=== PATIENT | female | born 1970 | race American Indian/Alaskan Native ===

== ENCOUNTER 2017-12-21 16:46 | Emergency (ER) | payer MEDICAID ==
[2017-12-21 16:59] VITALS: BP 156/92
--- NOTE | 2017-12-21 18:52 | Emergency Department Report ---
Blank Doc - Documentation Documentation: Patient is a 48-year-old Female who is presenting with right back pain. Patient states that 4 months ago she had a kidney stone and was treated [facility] with a nephrostomy tube. Patient states that she was told by her urologist and urologist nurse that several weeks after the insertion is thick and pull it out themselves. Patient states she tried to do this and she met resistance and has had increased pain since. Patient states that she is upset with this urologist and has not gone back. She states that she now is having foul smelling and appearing urine and she also is having multiple episodes of syncope. Patient states she has also abdominal right flank pain as well.
[2017-12-21 19:23] LABS: BUN/Creatinine Ratio 13; Blood Urea Nitrogen 8 mg/dL (7-17); Calcium 10.7 mg/dL (8.4-10.2); Hemolysis Index 0
[2017-12-21 19:24] LABS: Basophils % (Auto) 0.2 % (0.0-1.8); Eosinophils # (Auto) 0.1 K/mm3 (0.0-0.4); Eosinophils % (Auto) 1.9 % (0.0-4.3); Hematocrit 32.3 % (30.3-42.9); Hemoglobin 10.1 gm/dl (10.1-14.3); Lymphocytes # (Auto) 1.3 K/mm3 (1.2-5.4); Mean Corpuscular HGB Conc 31 % (30-34); Mean Corpuscular Volume 79 fl (79-97); Monocytes # (Auto) 0.2 K/mm3 (0.0-0.8); Monocytes % (Auto) 4.6 % (0.0-7.3); Platelet Count 303 K/mm3 (140-440)
[2017-12-21 19:25] LABS: Mean Corpuscular Hemoglobin 25 pg (28-32); Red Cell Distribution Width 20.3 % (13.2-15.2)
[2017-12-21 19:36] LABS: Bacteria,Urine 2+ /HPF (Negative); Bilirubin,Urine NEG (Negative); Blood,Urine LG (Negative); Color,Urine Yellow (Yellow); Mucus,Urine FEW /HPF; Urobilinogen,Urine < 2.0 mg/dL (<2.0)
[2017-12-21 19:39] LABS: RBC,Urine > 182.0 /HPF (0.0-6.0); WBC,Urine > 182.0 /HPF (0.0-6.0)
[2017-12-21] MEDS ORDERED: LEVAQUIN PO ONE (19:53)
--- NOTE | 2017-12-21 20:14 | Emergency Department Report ---
ED General Adult HPI - General Chief complaint: Back Pain/Injury Stated complaint: ABD/BACK PAIN Time Seen by Provider: 12/21/17 18:25 Source: patient Mode of arrival: Ambulatory Limitations: No Limitations - History of Present Illness Initial comments: This is a 48-year-old female nontoxic, well nourished in appearance, no acute signs of distress presents to the ED with c/o of right-sided flank pain. Patient stated that in August a nephrostomy tube is in place by a urologist and was particularly removed September but due to insurance lapsed she did not follow-up with caterpillar tractor operator. Patient stated that her caterpillar tractor operator instructed to remove that herself several weeks ago patient attempted and then developed pain. Patient stated every since then she her pain has increased. Patient is also complaining of foul-smelling urine, dysuria and hematuria. She has had episodes of near syncope x2 weeks with last one being 2 days ago. Patient denies any head trauma or LOC. Patient denies any headache, stiff neck, fever, chills, nausea, vomiting, headache, stiff neck. Patient denies any chest pain or shortness of breath. Patient denies any allergies. Past medical history includes renal colic, hydronephrosis. MD Complaint: UTI, Near syncope, Pain Location: back Radiation: non-radiation Severity scale (0 -10): 8 Quality: aching Consistency: intermittent Improves with: none Worsens with: none Associated Symptoms: denies other symptoms. denies: confusion, chest pain, diaphoresis, fever/chills, headaches, loss of appetite, malaise, nausea/vomiting , rash, seizure, shortness of breath, syncope, weakness Treatments Prior to Arrival: none - Related Data Previous Rx's Medication Instructions Recorded Last Taken Type Levofloxacin [Levaquin TAB] 750 mg PO QDAY #7 tablet 12/21/17 Unknown Rx Allergies Allergy/AdvReac Type Severity Reaction Status Date / Time No Known Allergies Allergy Verified 12/21/17 16:53 ED Review of Systems ROS: Stated complaint: ABD/BACK PAIN Other details as noted in HPI Constitutional: denies: chills, fever Eyes: denies: eye pain, eye discharge, vision change ENT: denies: ear pain, throat pain Respiratory: denies: cough, shortness of breath, wheezing Cardiovascular: denies: chest pain, palpitations Endocrine: no symptoms reported Gastrointestinal: denies: abdominal pain, nausea, diarrhea Genitourinary: urgency, dysuria, frequency, hematuria. denies: discharge Musculoskeletal: back pain. denies: joint swelling, arthralgia Skin: denies: rash, lesions Neurological: denies: headache, weakness, paresthesias Psychiatric: denies: anxiety, depression Hematological/Lymphatic: denies: easy bleeding, easy bruising ED Past Medical Hx - Past Medical History Hx Congestive Heart Failure: No Hx Diabetes: No Hx Renal Disease: Yes (Renal colic, questionable hydronephrosis) Hx Kidney Stones: Yes Hx Asthma: No Hx COPD: No Hx HIV: No - Surgical History Additional Surgical History: LASER surgery kidney stone - Social History Smoking Status: Never Smoker Substance Use Type: None - Medications Home Medications: Home Medications Medication Instructions Recorded Confirmed Last Taken Type Levofloxacin [Levaquin TAB] 750 mg PO QDAY #7 tablet 12/21/17 Unknown Rx ED Physical Exam - General Limitations: No Limitations General appearance: alert, in no apparent distress - Head Head exam: Present: atraumatic, normocephalic - Eye Eye exam: Present: normal appearance Pupils: Present: normal accommodation - ENT ENT exam: Present: normal exam, mucous membranes moist - Neck Neck exam: Present: normal inspection, full ROM. Absent: tenderness, meningismus - Respiratory Respiratory exam: Present: normal lung sounds bilaterally. Absent: respiratory distress, wheezes, rales, rhonchi, stridor - Cardiovascular Cardiovascular Exam: Present: regular rate, normal rhythm, normal heart sounds. Absent: bradycardia, tachycardia, irregular rhythm, systolic murmur, diastolic murmur, rubs, gallop - GI/Abdominal GI/Abdominal exam: Present: soft, normal bowel sounds. Absent: distended, tenderness, guarding, rebound, rigid, diminished bowel sounds - Rectal Rectal exam: Present: deferred - Extremities Exam Extremities exam: Present: normal inspection, full ROM, normal capillary refill. Absent: tenderness - Back Exam Back exam: Present: normal inspection, full ROM, other (Red tube to the right side flank area. No abscess or swelling noted. No pus or drainage. No cellutlitis. ). Absent: tenderness, CVA tenderness (R), CVA tenderness (L), muscle spasm, paraspinal tenderness, vertebral tenderness, rash noted - Neurological Exam Neurological exam: Present: alert, oriented X3, CN II-XII intact, normal gait - Expanded Neurological Exam Expanded Patient oriented to: Present: person, place, time Cranial nerves: Gag Reflex: Normal, Facial Sensation: Normal, Facial Palsy with Forehead Movement: Normal, Facial Palsy without Forehead Movement: Normal Cerebellar function: Finger to Nose: Normal Upper motor neuron: Pronator Drift: Normal, Sensory Extinction: Normal Sensory exam: Upper Extremity Light Touch: Normal, Upper Extremity Pin Prick: Normal, Upper Extremity Temperature: Normal, UE 2 Point Discrimination: Normal, Lower Extremity Light Touch: Normal, Lower Extremity Pin Prick: Normal, Lower Extremity Temperature: Normal, LE 2 Point Discrimination: Normal Motor strength exam: RUE: 5, LUE: 5, RLE: 5, LLE: 5 Best Eye Response (B[place]): (4) open spontaneously Best Motor Response (Fouzia): (6) obeys commands Best Verbal Response (Fouzia): (5) oriented Fouzia Total: 15 - Psychiatric Psychiatric exam: Present: normal affect, normal mood - Skin Skin exam: Present: warm, dry, intact, normal color. Absent: rash ED Course Vital Signs 12/21/17 16:54 Temperature 98.7 F Pulse Rate 80 Respiratory 16 Rate Blood Pressure 156/92 O2 Sat by Pulse 99 Oximetry - Reevaluation(s) Reevaluation #1: 12/21/17 20:16 Patient is speaking in full sentences with no signs of distress noted. - Consultations Consultation #1: 12/21/17 20:17 Patient has been consulted with Dr. Vivar about patient history, physical exam , and labs and examined and screened patient and agrees to ED plan of care and discharge plan of care. ED Medical Decision Making - Lab Data Result diagrams: 12/21/17 19:00 12/21/17 19:00 - Medical Decision Making this is a 47-year-old female that presents with nephrostomy tube evaluation, UTI and near-syncope. Patient is stable and was examined by me and Dr. Vivar. As per Dr. Vivar no CT needed. Patient is neurologically stable.labs obtained. Urine obtained which indicates elevated wbc's, leukocytes and RBCs. Patient received first dose of Levaquin and patient is discharged with Levaquin. Patient was referred to a caterpillar tractor operator and she stated that she does not want to go back to her old caterpillar tractor operator. At time of discharge, the patient does not seem toxic or ill in appearance. No acute signs of distress noted. Patient agrees to discharge treatment plan of care. No further questions noted by the patient. Critical care attestation.: If time is entered above; I have spent that time in minutes in the direct care of this critically ill patient, excluding procedure time. ED Disposition Clinical Impression: Flank pain UTI (urinary tract infection) Qualifiers: Urinary tract infection type: site unspecified Hematuria presence: with hematuria Qualified Code(s): N39.0 - Urinary tract infection, site not specified ; R31.9 - Hematuria, unspecified Disposition: DC- TO HOME OR SELFCARE Is pt being admited?: No Does the pt Need Aspirin: No Condition: Stable Instructions: Urinary Tract Infection in Women (ED), Nephrostomy Tube Care (ED) , Levofloxacin (By mouth) Additional Instructions: Follow-up with a primary care doctor in 3-5 days or if symptoms worsen and continue return to emergency room as soon as possible. Prescriptions: Levofloxacin [Levaquin TAB] 750 mg PO QDAY #7 tablet Referrals: PRIMARY MD CHRISSY [Primary Care Provider] - 3-5 Days HERBIE NG MD [Staff Physician] - 3-5 Days [facility] [Outside] - 3-5 Days [facility] [Outside] - 3-5 Days Forms: Work/School Release Form(ED)
== END 2017-12-21 20:32 | disposition home or self-care (01) ==
LOC: ED 16:46
DX: N39.0 Urinary tract infection, site not specified (principal); R10.30 Lower abdominal pain, unspecified
CPT/HCPCS: 36415; 80048; 81001; 85025

== ENCOUNTER 2018-06-23 02:52 | Inpatient (IN) | payer MEDICAID ==
[2018-06-23] MEDS ORDERED: ZOFRAN ODT PO ONE (03:10)
[2018-06-23] MEDS ORDERED: NACL 0.9% 1000 ML 1,000 ML IV ONE (03:10)
[2018-06-23] MEDS ORDERED: ZOFRAN ODT ONE (03:17)
[2018-06-23 03:44] LABS: Basophils % (Auto) 0.5 % (0.0-1.8); Eosinophils % (Auto) 1.1 % (0.0-4.3); Hemoglobin 9.9 gm/dl (10.1-14.3); Lymphocytes % (Auto) 11.8 % (13.4-35.0); Mean Corpuscular HGB Conc 31 % (30-34); Mean Corpuscular Hemoglobin 23 pg (28-32); Mean Corpuscular Volume 76 fl (79-97); Monocytes % (Auto) 7.5 % (0.0-7.3); Platelet Count 439 K/mm3 (140-440); Red Blood Count 4.23 M/mm3 (3.65-5.03); Red Cell Distribution Width 21.2 % (13.2-15.2)
[2018-06-23 03:45] LABS: Basophils # (Auto) 0.1 K/mm3 (0.0-0.1); Eosinophils # (Auto) 0.1 K/mm3 (0.0-0.4); Lymphocytes # (Auto) 1.3 K/mm3 (1.2-5.4); Monocytes # (Auto) 0.9 K/mm3 (0.0-0.8)
[2018-06-23 03:52] LABS: Alanine Aminotransferase 8 units/L (7-56); Albumin 3.8 g/dL (3.9-5); BUN/Creatinine Ratio 11; Blood Urea Nitrogen 12 mg/dL (7-17); Hemolysis Index 1
[2018-06-23 04:06] LABS: Bacteria,Urine 1+ /HPF (Negative); Bilirubin,Urine NEG (Negative); Blood,Urine SM (Negative); Color,Urine Yellow (Yellow); Mucus,Urine FEW /HPF; Protein,Urine <15 mg/dL mg/dL (Negative)
[2018-06-23 04:09] LABS: WBC,Urine > 182.0 /HPF (0.0-6.0)
[2018-06-23 04:24] LABS: Calcium 12.9 mg/dL (8.4-10.2)
[2018-06-23] MEDS ORDERED: CLEOCIN 300 MG/50 mL 300 MG/50 ML BAG IV ONE (06:24)
[2018-06-23] MEDS ORDERED: DILAUDID IV ONE (06:24)
--- NOTE | 2018-06-23 06:26 | Emergency Department Report ---
ED General Adult HPI - General Chief complaint: Abdominal Pain Stated complaint: ABDOMINAL PAIN Time Seen by Provider: 06/23/18 06:06 Source: patient, RN notes reviewed, old records reviewed Mode of arrival: Stretcher Limitations: No Limitations - History of Present Illness Initial comments: This is a 48-year-old female who is not known to this provider previously. Her past medical history includes recurrent nephrolithiasis, multiple stents in the past, recent admission to this hospital May 2018 for aforementioned, found to have culture positive urinary tract infection, and right-sided nephrostomy tube. Also has a history of hypercalcemia and bowel ileus. Patient was discharged on antibiotics, and had a surgical culture which grew staph epidermidis, sensitive to clindamycin, daptomycin, tetracycline, Bactrim, vancomycin. Patient was discharged with antibiotics, but reports not taking her antibiotics because she was worried about the side effects. She also has not followed up with urology as she was instructed to. She presents today with a complaint of diffuse abdominal pain for the past few days, nausea and vomiting. Denies fevers, denies chills, denies dysuria but endorses increased urinary frequency. Symptoms have been going on for a few days, they're constant, made worse with palpation percussion, they do not radiate anywhere, and a decrease with rest. Denies headache, neck pain, chest pain, shortness of breath, focal extremity weakness, numbness. Reports feeling very anxious. -: Gradual Location: back, abdomen Radiation: non-radiation Quality: other Consistency: other Improves with: other Worsens with: other Associated Symptoms: loss of appetite, malaise, nausea/vomiting, other - Related Data Previous Rx's Medication Instructions Recorded Last Taken Type Lactobacillus Combination No.4 1 each PO DAILY #30 capsule 05/11/18 Unknown Rx [Probiotic] levoFLOXacin [Levaquin] 750 mg PO QDAY #14 tablet 05/11/18 Unknown Rx traMADol [Ultram] 50 mg PO Q6HR PRN #10 tablet 05/11/18 Unknown Rx Allergies Allergy/AdvReac Type Severity Reaction Status Date / Time No Known Allergies Allergy Verified 12/21/17 16:53 ED Review of Systems ROS: Stated complaint: ABDOMINAL PAIN Other details as noted in HPI Comment: All other systems reviewed and negative ED Past Medical Hx - Past Medical History Previous Medical History?: Yes Hx Congestive Heart Failure: No Hx Diabetes: No Hx Renal Disease: Yes (Renal colic, questionable hydronephrosis) Hx Kidney Stones: Yes Hx Asthma: No Hx COPD: No Hx HIV: No - Surgical History Past Surgical History?: Yes Additional Surgical History: LASER surgery kidney stone. 1 renal stent placed - Social History Smoking Status: Never Smoker Substance Use Type: None - Medications Home Medications: Home Medications Medication Instructions Recorded Confirmed Last Taken Type Lactobacillus Combination No.4 1 each PO DAILY #30 capsule 05/11/18 Unknown Rx [Probiotic] levoFLOXacin [Levaquin] 750 mg PO QDAY #14 tablet 05/11/18 Unknown Rx traMADol [Ultram] 50 mg PO Q6HR PRN #10 tablet 05/11/18 Unknown Rx ED Physical Exam - General Limitations: No Limitations General appearance: alert, anxious, obese - Head Head exam: Present: atraumatic, normocephalic - Eye Eye exam: Present: normal appearance, EOMI. Absent: nystagmus - ENT ENT exam: Present: normal exam, normal orophraynx, mucous membranes moist, normal external ear exam - Neck Neck exam: Present: normal inspection, full ROM - Respiratory Respiratory exam: Present: normal lung sounds bilaterally. Absent: respiratory distress - Cardiovascular Cardiovascular Exam: Present: normal rhythm, tachycardia, normal heart sounds. Absent: systolic murmur, diastolic murmur, rubs, gallop - GI/Abdominal GI/Abdominal exam: Present: soft, tenderness, other (there is suprapubic tenderness). Absent: distended, guarding, rebound, rigid, pulsatile mass - Extremities Exam Extremities exam: Present: normal inspection, full ROM, normal capillary refill , other (2+ pulses noted in the bilateral upper, lower extremities. Compartments soft. No long bony tenderness. The pelvis is stable.). Absent: pedal edema, joint swelling, calf tenderness - Back Exam Back exam: Present: normal inspection, full ROM, other (on the right paralumbar region, there is an indwelling nephrostomy tube, with no collection bag noted. In addition, the sutures are not connected to the skin.). Absent: tenderness, CVA tenderness (R), paraspinal tenderness, vertebral tenderness - Neurological Exam Neurological exam: Present: alert, oriented X3, CN II-XII intact, other ( Extraocular movements intact. Tongue midline. No facial droop. Facial sensation intact to light touch in the V1, V2, V3 distribution bilaterally. 5 and 5 strength in 4 extremities.. Sensation is intact to light touch in 4 extremities.). Absent: motor sensory deficit - Psychiatric Psychiatric exam: Present: anxious - Skin Skin exam: Present: warm, dry, intact, normal color. Absent: rash ED Course Vital Signs 06/23/18 06/23/18 06/23/18 02:57 07:20 08:00 Temperature 98 F Pulse Rate 118 H Respiratory 20 Rate Blood Pressure 129/83 126/81 O2 Sat by Pulse 100 80 L 95 Oximetry 06/23/18 06/23/18 09:00 09:06 Temperature 99.3 F Pulse Rate 111 H Respiratory Rate Blood Pressure 129/79 O2 Sat by Pulse 99 Oximetry - Reevaluation(s) Reevaluation #1: 06/23/18 06:56 Differential diagnosis, including but not limited to: Hypercalcemia, urinary tract infection, infected kidney stone, nephrostomy tube malposition Assessment and plan: 48-year-old female with acute on chronic abdominal pain, displaced nephrostomy tube, probable urinary tract infection. She is afebrile, hemodynamically stable, and tachycardic. She will be given IV fluids for her hypercalcemia, pain medication and nausea medication, and she'll be loaded with clindamycin as per review of old urine cultures. Noncontrast CT scan of abdomen and pelvis is pending. I will discuss with urology extension service advisor. Recommended admission for hypercalcemia, presumed urinary tract infection. Reevaluation #2: 06/23/18 07:30 Case is discussed with urology on-call, Dr. Calvert, his group will see the patient in consultation. Discussed the case with Hospital physician, Dr. Breaux, who accepted the patient on behalf of Dr. Sterling Reevaluation #3: 06/23/18 08:[address] scan of the abdomen and pelvis demonstrates a right nephrostomy tube in the proper position, with moderate right hydronephrosis and hydroureter , and stones in the right kidney. There is an obstructing stone in the proximal right ureter measuring 11 mm. The left ureter and kidney are unremarkable. The appendix is normal. Visualized bowel contents unremarkable. ED Medical Decision Making - Lab Data Result diagrams: 06/23/18 03:12 06/23/18 03:12 Vital Signs 06/23/18 02:57 Temperature 98 F Pulse Rate 118 H Respiratory 20 Rate Blood Pressure 129/83 O2 Sat by Pulse 100 Oximetry Lab Results 06/23/18 06/23/18 06/23/18 Range/Units 03:12 03:12 Unknown WBC 11.4 H (4.5-11.0) K/mm3 RBC 4.23 (3.65-5.03) M/mm3 Hgb 9.9 L (10.1-14.3) gm/dl Hct 32.0 (30.3-42.9) % MCV 76 L (79-97) fl MCH 23 L (28-32) pg MCHC 31 (30-34) % RDW 21.2 H (13.2-15.2) % Plt Count 439 (140-440) K/mm3 Lymph % (Auto) 11.8 L (13.4-35.0) % [place] % (Auto) 7.5 H (0.0-7.3) % Eos % (Auto) 1.1 (0.0-4.3) % Baso % (Auto) 0.5 (0.0-1.8) % Lymph # 1.3 (1.2-5.4) K/mm3 [place] # 0.9 H (0.0-0.8) K/mm3 Eos # 0.1 (0.0-0.4) K/mm3 Baso # 0.1 (0.0-0.1) K/mm3 Seg Neutrophils % 79.1 H (40.0-70.0) % Seg Neutrophils # 9.0 H (1.8-7.7) K/mm3 Sodium 136 L (137-145) mmol/L Potassium 3.8 (3.6-5.0) mmol/L Chloride 102.7 (98-107) mmol/L Carbon Dioxide 24 (22-30) mmol/L Anion Gap 13 mmol/L BUN 12 (7-17) mg/dL Creatinine 1.1 (0.7-1.2) mg/dL Estimated GFR > 60 ml/min BUN/Creatinine Ratio 11 % Glucose 129 H (65-100) mg/dL Calcium 12.9 H* (8.4-10.2) mg/dL Total Bilirubin 0.20 (0.1-1.2) mg/dL AST 11 (5-40) units/L ALT 8 (7-56) units/L Alkaline Phosphatase 126 (35-129) units/L Total Protein 7.1 (6.3-8.2) g/dL Albumin 3.8 L (3.9-5) g/dL Albumin/Globulin Ratio 1.2 % Urine Color Yellow (Yellow) Urine Turbidity Slightly-cloudy (Clear) Urine pH 6.0 (5.0-7.0) Ur Specific [place] 1.013 (1.003-1.030) Urine Protein <15 mg/dl (Negative) mg/dL Urine Glucose (UA) Neg (Negative) mg/dL Urine Ketones Neg (Negative) mg/dL Urine Blood Sm (Negative) Urine Nitrite Neg (Negative) Urine Bilirubin Neg (Negative) Urine Urobilinogen 2.0 (<2.0) mg/dL Ur Leukocyte Esterase Lg (Negative) Urine WBC (Auto) > 182.0 H (0.0-6.0) /HPF Urine RBC (Auto) 8.0 (0.0-6.0) /HPF U Epithel Cells (Auto) < 1.0 (0-13.0) /HPF Urine Bacteria (Auto) 1+ (Negative) /HPF Urine Mucus Few /HPF - EKG Data -: EKG Interpreted by Me EKG shows normal: sinus rhythm Rate: tachycardia - EKG Data 06/23/18 07:16 Sinus tachycardia, 110 bpm, normal axis, high left ventricular voltage, normal intervals, Q waves noted in 1 and aVL, abnormal EKG, this EKG is not a STEMI - Radiology Data Radiology results: pending Critical care attestation.: If time is entered above; I have spent that time in minutes in the direct care of this critically ill patient, excluding procedure time. ED Disposition Clinical Impression: UTI (urinary tract infection), Hypercalcemia, Complication of nephrostomy Disposition: DC-09 OP ADMIT IP TO THIS HOSP Is pt being admited?: Yes Condition: Good
--- NOTE | 2018-06-23 07:25 | Cat Scan Report ---
FINAL REPORT PROCEDURE: CT ABDOMEN PELVIS WO CON TECHNIQUE: Computerized axial tomography of the abdomen and pelvis was performed without intravenous contrast. This study is performed without intravascular contrast material and its sensitivity for abdominal and pelvic pathology, including neoplasms, inflammation, abscess, free fluid, thrombosis, arterial dissection and infarction, is reduced compared with a contrast enhanced study. HISTORY: ABD PAIN COMPARISON: No prior studies are available for comparison. FINDINGS: Visualized lower thorax: There is an 8 millimeter noncalcified nodule at the right lung base. There is an 8 millimeter cavitating nodule at the right lung base. Both these lesions were seen previously and have not changed.. Liver: Normal size and attenuation. Spleen: Normal size and attenuation. Gallbladder and biliary system: Normal. Pancreas: Normal. Adrenals: Normal. Kidneys: There is a right nephrostomy tube in proper position. There is moderate right hydronephrosis and hydroureter. There are stones in the right kidney. There is an obstructing stone in the proximal right ureter measuring 11 millimeters. Left kidney and ureter are unremarkable.. GI tract: There is no bowel obstruction, colitis or enteritis. The appendix is normal.. Lymph nodes and mesentery: Normal. Vasculature: Normal. Bladder: Normal. Reproductive organs: Uterus and ovaries are unremarkable. Peritoneum: There is no ascites, free air, abscess or adenopathy.. Musculoskeletal structures: No significant abnormality. Other: None. IMPRESSION: There is a right nephrostomy tube in proper position. There is moderate right hydronephrosis and hydroureter. There are stones in the right kidney. There is an obstructing stone in the proximal right ureter measuring 11 millimeters. Left kidney and ureter are unremarkable.. There is no bowel obstruction, colitis or enteritis. The appendix is normal.. Uterus and ovaries are unremarkable. There is no ascites, free air, abscess or adenopathy.. .
[2018-06-23] MEDS ORDERED: APRESOLINE IV PRN (07:46)
[2018-06-23] MEDS ORDERED: REGLAN PO PRN (07:46)
--- NOTE | 2018-06-23 07:50 | History and Physical Report ---
History of Present Illness Date of examination: 06/23/18 Date of admission: 06/23/18 Chief complaint: abdominal pain for 2 days History of present illness: 48-year-old female with h/o obstructing kidney stone status post right sided nephrostomy tube placement in 05/23. The surgical culture that time grew staph epidermidis, sensitive to clindamycin, daptomycin, tetracycline, Bactrim, vancomycin. Patient was discharged on antibiotics following nephrostomy tube placement, but she reports not taking her antibiotics because she was worried about the side effects. She also has not followed up with urology as she was instructed to. The patient's nephrostomy bag broke a few days ago, and she broke off part of the nephrostomy bag in the tube, and instead of coming to the emergency room she decided to wait a few days until she began to have severe right flank pain at which point she presented to the hospital today. Her abdominal pain now diffuse, 10/0 in intensity and not getting any relief w/o iv morphin. She has been placed on iv abx, urology and vascular surgeon called. She is getting admitted for further evaluation and management. Past History Past Medical History: other (multiple ureteric stent with h/o kidney stone, hypercalcemia) Past Surgical History: Other (multiple ureteric stent ) Social history: full code. denies: smoking, alcohol abuse, prescription drug abuse, IV drug use Family history: denies: CAD, cancer, diabetes, hypertension, stroke Medications and Allergies Allergies Allergy/AdvReac Type Severity Reaction Status Date / Time No Known Allergies Allergy Verified 12/21/17 16:53 Home Medications Medication Instructions Recorded Confirmed Last Taken Type Lactobacillus Combination No.4 1 each PO DAILY #30 capsule 05/11/18 Unknown Rx [Probiotic] levoFLOXacin [Levaquin] 750 mg PO QDAY #14 tablet 05/11/18 Unknown Rx traMADol [Ultram] 50 mg PO Q6HR PRN #10 tablet 05/11/18 Unknown Rx Active Meds: Active Medications Acetaminophen (Tylenol) 650 mg PO Q4H PRN PRN Reason: Pain MILD(1-3)/Fever >100.5/WILSON Acetaminophen/Hydrocodone Bitart ([place] 5/325) 2 each PO Q6H PRN PRN Reason: Pain, Moderate (4-6) Hydralazine HCl (Apresoline) 5 mg IV Q30MIN PRN PRN Reason: Hypertension Ceftriaxone Sodium (Rocephin/Ns 1 Gm/50 Ml) 1 gm in 50 mls @ 100 mls/hr IV Q12HR SONIA; Protocol Sodium Chloride (Nacl 0.9% 1000 Ml) 1,000 mls @ 100 mls/hr IV DIRECT SONIA Metoclopramide HCl (Reglan) 10 mg PO Q6H PRN PRN Reason: Nausea And Vomiting Senna (Senokot) 8.6 mg PO Q12HR SONIA Review of Systems Constitutional: fever, anorexia, fatigue, no weight loss Ears, nose, mouth and throat: no ear discharge, no sinus pressure, no epistaxis , no bleeding gums Cardiovascular: no chest pain, no orthopnea, no palpitations Respiratory: no cough, no shortness of breath, no dyspnea on exertion Gastrointestinal: abdominal pain, nausea Genitourinary Female: pelvic pain, flank pain Rectal: no incontinence Musculoskeletal: no neck stiffness, no myalgias, no limitation of motion Integumentary: no rash, no pruritis Neurological: no paralysis, no weakness Psychiatric: anxiety Endocrine: no cold intolerance, no heat intolerance Hematologic/Lymphatic: no easy bruising Allergic/Immunologic: no urticaria Exam - Constitutional Vitals: Temp Pulse Resp BP Pulse Ox 98 F 118 H 20 129/83 100 06/23/18 02:57 06/23/18 02:57 06/23/18 02:57 06/23/18 02:57 06/23/18 02:57 General appearance: Present: no acute distress, obese - EENT Eyes: Present: PERRL ENT: hearing intact, clear oral mucosa - Neck Neck: Present: supple, normal ROM - Respiratory Respiratory effort: normal Respiratory: bilateral: CTA - Cardiovascular Heart Sounds: Present: S1 & S2. Absent: rub, click - Extremities Extremities: pulses symmetrical, No edema Peripheral Pulses: within normal limits - Abdominal General gastrointestinal: Present: soft, non-distended, normal bowel sounds Localized gastrointestinal: tender: diffuse - Integumentary Integumentary: Present: clear, warm, dry - Musculoskeletal Musculoskeletal: gait normal, strength equal bilaterally - Psychiatric Psychiatric: appropriate mood/affect, intact judgment & insight - Neurologic Neurologic: CNII-XII intact, moves all extremities Results - Labs CBC & Chem 7: 06/24/18 05:00 06/24/18 05:00 Labs: Abnormal lab results 06/23/18 06/23/18 06/23/18 Range/Units 03:12 03:12 Unknown WBC 11.4 H (4.5-11.0) K/mm3 Hgb 9.9 L (10.1-14.3) gm/dl MCV 76 L (79-97) fl MCH 23 L (28-32) pg RDW 21.2 H (13.2-15.2) % Lymph % (Auto) 11.8 L (13.4-35.0) % [place] % (Auto) 7.5 H (0.0-7.3) % [place] # 0.9 H (0.0-0.8) K/mm3 Seg Neutrophils % 79.1 H (40.0-70.0) % Seg Neutrophils # 9.0 H (1.8-7.7) K/mm3 Sodium 136 L (137-145) mmol/L Glucose 129 H (65-100) mg/dL Calcium 12.9 H* (8.4-10.2) mg/dL Albumin 3.8 L (3.9-5) g/dL Urine WBC (Auto) > 182.0 H (0.0-6.0) /HPF - Imaging and Cardiology CT scan - abdomen: report reviewed Assessment and Plan Sepsis with UTI Abdominal pain with obstructed nephrolithiasis Malfunctioning right nephrostomy tube Right hydronephrosis - aggressive iv fluid, pain Mx - cont iv abx - consulted urology, and IR - plan for surgical procedure today - floow blood cx , urine cx Hypercalcemia - - monitor BMP, check PTH, Vit D - cont iv fluid for now Obesity - dietary recommendation when stable - monitor BMP, check PTH, Vit D Radiological data: CT abdomen/pelvis: There is a right nephrostomy tube in proper position. There is moderate right hydronephrosis and hydroureter. There are stones in the right kidney. There is an obstructing stone in the proximal right ureter measuring 11 millimeters. Left kidney and ureter are unremarkable.. There is no bowel obstruction, colitis or enteritis. The appendix is normal.. Uterus and ovaries are unremarkable. There is no ascites, free air, abscess or adenopathy..
[2018-06-23] MEDS: NORCO 5/325 PO PRN ×2 (09:04→20:45)
[2018-06-23] MEDS ORDERED: NORCO 5/325 ONE (09:07)
[2018-06-23] MEDS: NACL 0.9% 1000 ML 1,000 ML IV SCH ×2 (09:42→14:30)
[2018-06-23] MEDS ORDERED: ROCEPHIN/NS 1 GM/50 ML 1 GM/50 ML BAG IV SCH (10:00)
[2018-06-23] MEDS: SENOKOT PO SCH ×2 (10:46→21:16)
[2018-06-23] MEDS: MORPHINE IV PRN (12:34)
[2018-06-23] MEDS ORDERED: HEPARIN/NS 5000 UNIT/500ML(CATH LAB) 500 ML IR ONE (13:40)
[2018-06-23] MEDS ORDERED: LEVAQUIN 500MG/100ML 500 MG/100 ML BAG IV ONE (13:42)
[2018-06-23] MEDS ORDERED: XYLOCAINE 2% INFILTRATI ONE (13:42)
[2018-06-23] MEDS ORDERED: NACL 0.9% 500 ML IR ONE (14:30)
[2018-06-23] MEDS: VERSED ONE (14:38)
[2018-06-23] MEDS: SUBLIMAZE ONE (14:38)
[2018-06-23] MEDS ORDERED: ZOSYN/NS 4.5GM/100ML 4.5 GM/100 ML VIAL IV ONE (14:48)
--- NOTE | 2018-06-23 14:59 | Consultation ---
History of Present Illness - Reason for Consult Consult date: 06/23/18 Blocked nephrostomy tube - History of Present Illness 48-year-old female who is status post right sided nephrostomy tube placement in 05/23 for ureteral calculi. Her past medical history includes recurrent nephrolithiasis, multiple stents in the past, and a history of hypercalcemia and bowel ileus. Patient was discharged on antibiotics, and had a surgical culture which grew staph epidermidis, sensitive to clindamycin, daptomycin, tetracycline, Bactrim, vancomycin. Patient was discharged with antibiotics, but reports not taking her antibiotics because she was worried about the side effects. She also has not followed up with urology as she was instructed to. The patient's nephrostomy bag broke a few days ago, and she broke off part of the nephrostomy bag in the tube, and instead of coming to the emergency room she decided to wait a few days until she began to have severe right flank pain at which point she presented to the hospital. Patient's alert and oriented 3 at this time. The patient also did not follow up with urology due to difficulty obtaining a ride. Past History Past Medical History: other (multiple ureteric stent with h/o kidney stone) Past Surgical History: Other (multiple ureteric stent ) Social history: full code. denies: smoking, alcohol abuse, prescription drug abuse, IV drug use Family history: denies: CAD, cancer, diabetes, hypertension, stroke Medications and Allergies Allergies Allergy/AdvReac Type Severity Reaction Status Date / Time No Known Allergies Allergy Verified 12/21/17 16:53 Home Medications Medication Instructions Recorded Confirmed Last Taken Type Lactobacillus Combination No.4 1 each PO DAILY #30 capsule 05/11/18 Unknown Rx [Probiotic] levoFLOXacin [Levaquin] 750 mg PO QDAY #14 tablet 05/11/18 Unknown Rx traMADol [Ultram] 50 mg PO Q6HR PRN #10 tablet 05/11/18 Unknown Rx Active Meds: Active Medications Acetaminophen (Tylenol) 650 mg PO Q4H PRN PRN Reason: Pain MILD(1-3)/Fever >100.5/WILSON Acetaminophen/Hydrocodone Bitart ([place] 5/325) 2 each PO Q6H PRN PRN Reason: Pain, Moderate (4-6) Last Admin: 06/23/18 09:04 Dose: 2 each Hydralazine HCl (Apresoline) 5 mg IV Q30MIN PRN PRN Reason: Hypertension Ceftriaxone Sodium (Rocephin/Ns 1 Gm/50 Ml) 1 gm in 50 mls @ 100 mls/hr IV Q12HR SONIA; Protocol Last Admin: 06/23/18 09:42 Dose: 100 mls/hr Sodium Chloride (Nacl 0.9% 1000 Ml) 1,000 mls @ 100 mls/hr IV DIRECT SONIA Last Admin: 06/23/18 09:42 Dose: 100 mls/hr Vancomycin HCl (Vancomycin/Ns 1 Gm/250 Ml) 1 gm in 250 mls @ 167.007 mls/hr IV PREOP NR; Protocol Stop: 06/23/18 23:59 Piperacillin Sod/Tazobactam Sod (Zosyn/Ns 4.5gm/100ml) 4.5 gm in 100 mls @ 200 mls/hr IV ONCE ONE; Protocol Stop: 06/23/18 15:17 Metoclopramide HCl (Reglan) 10 mg PO Q6H PRN PRN Reason: Nausea And Vomiting Morphine Sulfate (Morphine) 2 mg IV Q3H PRN PRN Reason: Pain , Severe (7-10) Last Admin: 06/23/18 12:34 Dose: 2 mg Senna (Senokot) 8.6 mg PO Q12HR SONIA Last Admin: 06/23/18 10:46 Dose: Not Given Review of Systems All systems: negative (see HPI) Exam - Constitutional Vitals: Temp Pulse Resp BP Pulse Ox 98.1 F 124 H 38 H 142/85 96 06/23/18 10:34 06/23/18 10:34 06/23/18 10:34 06/23/18 10:34 06/23/18 10:34 General appearance: Present: mild distress (right flank pain) - EENT Eyes: Present: EOM intact ENT: hearing intact - Neck Neck: Present: supple - Respiratory Respiratory effort: normal - Extremities Extremities: normal temperature, normal color - Abdominal General gastrointestinal: Present: other (right CVT) - Psychiatric Psychiatric: appropriate mood/affect, cooperative Results - Labs CBC & Chem 7: 06/23/18 03:12 06/23/18 03:12 Labs: Abnormal lab results 06/23/18 06/23/18 06/23/18 Range/Units 03:12 03:12 Unknown WBC 11.4 H (4.5-11.0) K/mm3 Hgb 9.9 L (10.1-14.3) gm/dl MCV 76 L (79-97) fl MCH 23 L (28-32) pg RDW 21.2 H (13.2-15.2) % Lymph % (Auto) 11.8 L (13.4-35.0) % [place] % (Auto) 7.5 H (0.0-7.3) % [place] # 0.9 H (0.0-0.8) K/mm3 Seg Neutrophils % 79.1 H (40.0-70.0) % Seg Neutrophils # 9.0 H (1.8-7.7) K/mm3 Sodium 136 L (137-145) mmol/L Glucose 129 H (65-100) mg/dL Calcium 12.9 H* (8.4-10.2) mg/dL Albumin 3.8 L (3.9-5) g/dL Urine WBC (Auto) > 182.0 H (0.0-6.0) /HPF - Imaging and Cardiology CT scan - abdomen: report reviewed, image reviewed Assessment and Plan 48-year-old female with right-sided flank pain, right-sided hydronephrosis, and nephrostomy tube malfunction due to the patient breaking off part of nephrostomy bag in the tube. She has early signs of infection. Set up for nephrostomy tube exchange. Discussed with patient that she will need to follow up with urology for definitive treatment of her ureteral stone in order to allow her to have her nephrostomy tube removed. Discussed with child support case officer to assist with patient obtaining right service. Although in the 110-120s on the floor, the patient's heart rate continued to increase, and prior to nephrostomy tube exchange, her heart rate was in the 150s. Patient was provided 1 L normal saline bolus, and provided Zosyn and vancomycin for sepsis. Urine cultures were sent for right nephrostomy. Nephrostomy tube was exchange. Hospitalist was contacted with recommendations for MICU transfer due to sepsis with severe tachycardia.
[2018-06-23] MEDS ORDERED: ZOFRAN IV PRN (15:00)
[2018-06-23] MEDS ORDERED: D5NS 1,000 ML IV SCH (15:00)
[2018-06-23] MEDS ORDERED: VANCOMYCIN/NS 1 GM/250 ML 1 GM/250 ML BAG IV NR (15:00)
--- NOTE | 2018-06-23 15:01 | Post Operative Note ---
Date of procedure: 06/23/18 Pre-op diagnosis: Hydronephrosis Post-op diagnosis: other (Pyonephrosis) Findings: Purulent material throughout the right collecting system up to the obstructing right ureteral calculi Procedure: Right nephrostomy tube check and change Anesthesia: local Surgeon: ALLEN NIX Estimated blood loss: minimal Specimen disposition: to lab Condition: other (HR 140-150s prior to procedure, decided not to provide conscious sedation, 1L NS ordered, Zosyn and vanc ordered for patient, hospitalist notified)
[2018-06-23] MEDS ORDERED: NACL 0.9% 1000 ML 1,000 ML ONE (15:55)
[2018-06-23] MEDS ORDERED: VANCOMYCIN/NS 1 GM/250 ML 1 GM/250 ML BAG IV SCH (16:00)
--- NOTE | 2018-06-23 16:10 | Operative Report ---
Operative Report Operative Report: EXAM: 1. Nephrostogram through the indwelling right nephrostomy tube. 2. 8 [place] right-sided nephrostomy tube exchange DATE: 06/23/18 LEGAL FINANCIAL SPECIALIST: ALLEN NIX MD INDICATION: 48-year-old female with nephrostomy tube malfunction secondary to breaking off part of the nephrostomy tube connector in the nephrostomy tube resulting in obstruction. Patient did not present to the hospital for a few days and now has right-sided flank pain. Patient had worsening tachycardia secondary likely to sepsis and therefore conscious sedation was not administered. MEDICATIONS: Please see nursing report for full details. 1 L normal saline bolus was ordered, Zosyn and vancomycin were also ordered. DEVICES: 8 [place] nephrostomy tube CONTRAST: Please see laborer starch factory report for details. PROCEDURE: The risks, benefits, and alternatives were discussed with the patient; written informed consent was obtained. The patient was brought to the angiography suite in satisfactory condition. The patient was placed in a prone position. The tubes were prepped and draped in a sterile fashion. The right nephrostomy tube was evaluated and determined to be occluded at the connection site. The tract demonstrated no evidence of superficial tract infection. 1% lidocaine was injected around the nephrostomy tube for local anesthetic. The tube was cut and a transitional dilator was inserted into the tube to provide a preprocedural nephrostogram. 0.035 inch [place] wire was passed into the renal collecting system. The nephrostomy tube was removed over a wire. Angled catheter was then advanced over the wire and the wire was exchanged for an Amplatz wire. A new nephrostomy tube was advanced over the wire into the collecting system. The wire and plastic stiffener were removed under fluoroscopic guidance. [place] loop was formed in the renal pelvis. The collecting system was aspirated and purulent material was sent for culture. Afterwards, the collecting system was flushed multiple time with saline. Contrast was injected confirming position in the renal pelvis. Contrast was then aspirated and saline was injected and aspirated through the collecting system. The catheter was secured with a 2-0 Ethilon. Sterile dressing was applied. The catheter was connected to a drainage bag. The patient tolerated the procedure without issue. The patient was transferred to the OPPU area without issue. FINDINGS: 1. The right sided nephrostogram demonstrated debris throughout the moderately hydronephrotic collecting system with a proximal right ureteral obstruction which when correlated to prior CT represents a large calculi. After the purulent material was aspirated and the collecting system was flushed multiple times, most of the debris within the right-sided collecting system was removed. There was still a proximal ureteral obstruction. In summary, there was right sided moderate pyonephrosis with an obstructing proximal renal calculi with removal of most of the purulent material at the conclusion of the procedure. 2. Successful fluoroscopic guided exchange of an 8 [place] right sided nephrostomy tube. IMPRESSION: Successful nephrostogram and nephrostomy tube exchange of a right sided 8 Fr nephrostomy tube.
[2018-06-23] MEDS ORDERED: TYLENOL ONE (16:41)
[2018-06-23] MEDS: TYLENOL PO PRN (16:41)
--- NOTE | 2018-06-23 17:28 | Consultation ---
History of Present Illness - Reason for Consult Consult date: 06/23/18 - History of Present Illness 48-year-old female who is status post right sided nephrostomy tube placement in 05/23 for ureteral calculi. Her past medical history includes recurrent nephrolithiasis, multiple stents in the past, and a history of hypercalcemia and bowel ileus. Patient was discharged on antibiotics, and had a surgical culture which grew staph epidermidis, sensitive to clindamycin, daptomycin, tetracycline, Bactrim, vancomycin. Patient was discharged with antibiotics, but reports not taking her antibiotics because she was worried about the side effects. She also has not followed up with urology as she was instructed to. The patient's nephrostomy bag broke a few days ago, and she broke off part of the nephrostomy bag in the tube, and instead of coming to the emergency room she decided to wait a few days until she began to have severe right flank pain at which point she presented to the hospital. Patient's alert and oriented [address] ALLEN NIX'S NOTE Date of procedure: 06/23/18 Pre-op diagnosis: Hydronephrosis Post-op diagnosis: other (Pyonephrosis) Findings: Purulent material throughout the right collecting system up to the obstructing right ureteral calculi A/P UTI OBSTRUCTING RT KIDNEY STONE NO INTERVENTION BY UROLOGY AT THIS TIME HOME ON ABX & PAIN MEDS WHEN STABLE OFFICE EVAL 1-2 WEEKS TO DETERMINE SURGICAL OPTIONS Past History Past Medical History: other (multiple ureteric stent with h/o kidney stone) Past Surgical History: Other (multiple ureteric stent ) Social history: full code. denies: smoking, alcohol abuse, prescription drug abuse, IV drug use Family history: denies: CAD, cancer, diabetes, hypertension, stroke Medications and Allergies Allergies Allergy/AdvReac Type Severity Reaction Status Date / Time No Known Allergies Allergy Verified 12/21/17 16:53 Home Medications Medication Instructions Recorded Confirmed Last Taken Type Lactobacillus Combination No.4 1 each PO DAILY #30 capsule 05/11/18 Unknown Rx [Probiotic] levoFLOXacin [Levaquin] 750 mg PO QDAY #14 tablet 05/11/18 Unknown Rx traMADol [Ultram] 50 mg PO Q6HR PRN #10 tablet 05/11/18 Unknown Rx Active Meds: Active Medications Acetaminophen (Tylenol) 650 mg PO Q4H PRN PRN Reason: Pain MILD(1-3)/Fever >100.5/WILSON Last Admin: 06/23/18 16:41 Dose: 650 mg Acetaminophen/Hydrocodone Bitart ([place] 5/325) 2 each PO Q6H PRN PRN Reason: Pain, Moderate (4-6) Last Admin: 06/23/18 09:04 Dose: 2 each Hydralazine HCl (Apresoline) 5 mg IV Q30MIN PRN PRN Reason: Hypertension Vancomycin HCl (Vancomycin/Ns 1 Gm/250 Ml) 1 gm in 250 mls @ 167.007 mls/hr IV PREOP NR; Protocol Stop: 06/23/18 23:59 Last Admin: 06/23/18 15:15 Dose: 250 mls Dextrose/Sodium Chloride (D5ns) 1,000 mls @ 125 mls/hr IV DIRECT SONIA Piperacillin Sod/Tazobactam Sod (Zosyn/Ns 4.5gm/100ml) 4.5 gm in 100 mls @ 200 mls/hr IV Q8HR SONIA; Protocol Vancomycin HCl (Vancomycin/Ns 1 Gm/250 Ml) 1 gm in 250 mls @ 166.667 mls/hr IV Q12H SONIA; Protocol Vancomycin HCl 1,500 mg/ (Sodium Chloride) 515 mls @ 333.333 mls/hr IV ONCE ONE Stop: 06/23/18 19:32 Vancomycin HCl (Vancomycin/Ns 1 Gm/250 Ml) 1 gm in 250 mls @ 167.007 mls/hr IV Q12H SONIA Metoclopramide HCl (Reglan) 10 mg PO Q6H PRN PRN Reason: Nausea And Vomiting Morphine Sulfate (Morphine) 2 mg IV Q3H PRN PRN Reason: Pain , Severe (7-10) Last Admin: 06/23/18 12:34 Dose: 2 mg Ondansetron HCl (Zofran) 4 mg IV Q8H PRN PRN Reason: Nausea And Vomiting Senna (Senokot) 8.6 mg PO Q12HR SONIA Last Admin: 06/23/18 10:46 Dose: Not Given Exam - Constitutional Vitals: Temp Pulse Resp BP Pulse Ox 101.3 F H 130 H 18 101/59 100 06/23/18 15:44 06/23/18 16:30 06/23/18 16:30 06/23/18 16:30 06/23/18 16:30 Results - Labs CBC & Chem 7: 06/23/18 03:12 06/23/18 03:12 Labs: Abnormal lab results 06/23/18 06/23/18 06/23/18 Range/Units 03:12 03:12 Unknown WBC 11.4 H (4.5-11.0) K/mm3 Hgb 9.9 L (10.1-14.3) gm/dl MCV 76 L (79-97) fl MCH 23 L (28-32) pg RDW 21.2 H (13.2-15.2) % Lymph % (Auto) 11.8 L (13.4-35.0) % [place] % (Auto) 7.5 H (0.0-7.3) % [place] # 0.9 H (0.0-0.8) K/mm3 Seg Neutrophils % 79.1 H (40.0-70.0) % Seg Neutrophils # 9.0 H (1.8-7.7) K/mm3 Sodium 136 L (137-145) mmol/L Glucose 129 H (65-100) mg/dL Calcium 12.9 H* (8.4-10.2) mg/dL Albumin 3.8 L (3.9-5) g/dL Urine WBC (Auto) > 182.0 H (0.0-6.0) /HPF
[2018-06-23] MEDS ORDERED: VANCOMYCIN 500 MG in NACL 0.9% 100 ML IV ONE (18:00)
[2018-06-23] MEDS ORDERED: VANCOMYCIN 1,500 MG in NACL 0.9% 500 ML 500 ML IV ONE (18:00)
[2018-06-23 21:01] LABS: BUN/Creatinine Ratio 9; Blood Urea Nitrogen 10 mg/dL (7-17); Calcium 11.8 mg/dL (8.4-10.2); Hemolysis Index 3
[2018-06-23] MEDS: ZOSYN/NS 4.5GM/100ML 4.5 GM/100 ML VIAL IV SCH (22:32)
[2018-06-24] MEDS: NORCO 5/325 PO PRN ×3 (04:32→22:27)
[2018-06-24 05:28] LABS: Basophils % (Auto) 0.2 % (0.0-1.8); Eosinophils % (Auto) 0.3 % (0.0-4.3); Hematocrit 25.7 % (30.3-42.9); Hemoglobin 8.1 gm/dl (10.1-14.3); Lymphocytes # (Auto) 0.7 K/mm3 (1.2-5.4); Lymphocytes % (Auto) 6.7 % (13.4-35.0); Mean Corpuscular HGB Conc 32 % (30-34); Mean Corpuscular Volume 74 fl (79-97); Monocytes % (Auto) 8.9 % (0.0-7.3); Platelet Count 318 K/mm3 (140-440); Red Blood Count 3.46 M/mm3 (3.65-5.03)
[2018-06-24 05:42] LABS: Mean Corpuscular Hemoglobin 24 pg (28-32); Red Cell Distribution Width 20.7 % (13.2-15.2)
[2018-06-24 05:52] LABS: BUN/Creatinine Ratio 10; Blood Urea Nitrogen 9 mg/dL (7-17); Hemolysis Index 0
[2018-06-24] MEDS: VERSED ONE (08:39)
[2018-06-24] MEDS: SUBLIMAZE ONE (08:39)
[2018-06-24] MEDS: ZOSYN/NS 4.5GM/100ML 4.5 GM/100 ML VIAL IV SCH ×3 (08:42→22:27)
[2018-06-24] MEDS: SENOKOT PO SCH ×2 (10:54→22:27)
[2018-06-24] MEDS: VANCOMYCIN/NS 1 GM/250 ML 1 GM/250 ML BAG IV SCH ×2 (10:54→19:13)
[2018-06-24] MEDS: NACL 0.9% 1000 ML 1,000 ML IV SCH (10:54)
[2018-06-24] MEDS: MORPHINE IV PRN ×2 (12:10→19:57)
--- NOTE | 2018-06-24 12:22 | Consultation ---
History of Present Illness - Reason for Consult Consult date: 06/24/18 other (hypercalcemia) - History of Present Illness The patient was a 48 YO female with history significant for Hypercalcemia, Nephrolithiasis (calcium oxalate stone) and h/o Obstructing right ureteral stone with hydronephrosis s/p right sided nephrostomy tube placement in 07/22, which was exchanged 02/20 who presented with 2 days h/o right flank pain. From previous admission she was sent home on antibiotics but she was not taking it. She also has not followed up with urologist as she was instructed to. The pain was sharp, 10/10, constant and not radiating. The nephrostomy tube was found to be blocked and got exchanged yesterday. Her symptoms are better now. Nephrology was consulted for managing Hypercalcemia. Past History Past Medical History: other (multiple ureteric stent with h/o kidney stone, hypercalcemia) Past Surgical History: Other (multiple ureteric stent ) Social history: full code. denies: smoking, alcohol abuse, prescription drug abuse, IV drug use Family history: denies: CAD, cancer, diabetes, hypertension, stroke Medications and Allergies Allergies Allergy/AdvReac Type Severity Reaction Status Date / Time No Known Allergies Allergy Verified 12/21/17 16:53 Home Medications Medication Instructions Recorded Confirmed Last Taken Type Lactobacillus Combination No.4 1 each PO DAILY #30 capsule 05/11/18 Unknown Rx [Probiotic] levoFLOXacin [Levaquin] 750 mg PO QDAY #14 tablet 05/11/18 Unknown Rx traMADol [Ultram] 50 mg PO Q6HR PRN #10 tablet 05/11/18 Unknown Rx Active Meds: Active Medications Acetaminophen (Tylenol) 650 mg PO Q4H PRN PRN Reason: Pain MILD(1-3)/Fever >100.5/WILSON Last Admin: 06/23/18 16:41 Dose: 650 mg Acetaminophen/Hydrocodone Bitart (Theodosia 5/325) 2 each PO Q6H PRN PRN Reason: Pain, Moderate (4-6) Last Admin: 06/24/18 11:35 Dose: 2 each Furosemide (Lasix) 20 mg IV 0600,1800 SONIA Hydralazine HCl (Apresoline) 5 mg IV Q30MIN PRN PRN Reason: Hypertension Dextrose/Sodium Chloride (D5ns) 1,000 mls @ 125 mls/hr IV DIRECT SONIA Last Admin: 06/23/18 21:15 Dose: 125 mls/hr Piperacillin Sod/Tazobactam Sod (Zosyn/Ns 4.5gm/100ml) 4.5 gm in 100 mls @ 200 mls/hr IV Q8HR SONIA; Protocol Last Admin: 06/24/18 08:42 Dose: Not Given Vancomycin HCl (Vancomycin/Ns 1 Gm/250 Ml) 1 gm in 250 mls @ 167.007 mls/hr IV Q12H SONIA Last Admin: 06/24/18 10:54 Dose: 167.007 mls/hr Sodium Chloride (Nacl 0.9% 1000 Ml) 1,000 mls @ 100 mls/hr IV DIRECT SONIA Last Admin: 06/24/18 10:54 Dose: 100 mls/hr Metoclopramide HCl (Reglan) 10 mg PO Q6H PRN PRN Reason: Nausea And Vomiting Morphine Sulfate (Morphine) 2 mg IV Q3H PRN PRN Reason: Pain , Severe (7-10) Last Admin: 06/23/18 12:34 Dose: 2 mg Ondansetron HCl (Zofran) 4 mg IV Q8H PRN PRN Reason: Nausea And Vomiting Senna (Senokot) 8.6 mg PO Q12HR SONIA Last Admin: 06/24/18 10:54 Dose: 8.6 mg Review of Systems Constitutional: no weight loss, no weight gain, no fever, no chills, no anorexia , no weakness, no poor appetite Breasts: deferred Cardiovascular: no chest pain, no orthopnea, no palpitations, no edema, no syncope, no lightheadedness, no shortness of breath, no high blood pressure, no leg edema, no decreased exercise tolerance Respiratory: no cough, no shortness of breath, no dyspnea on exertion, no sleep apnea, no home oxygen Gastrointestinal: abdominal pain, nausea, no vomiting, no diarrhea, no melena Genitourinary Female: no dysuria, no hematuria Rectal: no bleeding Musculoskeletal: no redness of joints, no gait dysfunction Integumentary: no rash, no jaundice Neurological: no paralysis, no syncope, no change in speech, no change in mentation, no confusion Exam - Vital Signs Vital signs: Vital Signs Temp Pulse Resp BP Pulse Ox 98 F 118 H 20 129/83 100 06/23/18 02:57 06/23/18 02:57 06/23/18 02:57 06/23/18 02:57 06/23/18 02:57 - General Appearance General appearance: well-developed, well-nourished, appears stated age, other ( not in distress) EENT: ATNC, PERRL, hearing intact, vision intact Neck: Present: neck supple, trachea midline Respiratory: Clear to Ascultation Heart: regular, S1S2, no murmurs Gastrointestinal: Present: tenderness (right flank tenderness), other (right sided nephrostomy tube noted). Absent: distended Integumentary: no rash, warm and dry Neurologic: no focal deficit, no asterixis, alert and oriented x3 Musculoskeletal: Present: other (no edema) Results - Lab Results 06/24/18 05:00 06/26/18 04:11 Most recent lab results Calcium 12.0 mg/dL (8.4-10.2) H 06/24/18 05:00 - Image Kidney/bladder ultrasound: other Assessment and Plan 1. Hypercalcemia: Associated with elevated PTH. Suspect parathyroid tumor. Parathyroid scan ordered. Vitamin D level ordered. Continue IV fluids. Monitor Calcium level. 2. Right sided hydronephrosis: S/p exchange of right nephrostomy tube. 3. Pyelonephritis. 4. Medical non-compliance.
--- NOTE | 2018-06-24 14:32 | Progress Note ---
Assessment and Plan Sepsis with UTI Abdominal pain with obstructed nephrolithiasis Malfunctioning right nephrostomy tube Right hydronephrosis due to obstructed stone - cont iv fluid, pain Mx - cont iv abx and follow urine cx - negative blood cx - consulted urology, and IR - s/p replacement of the nephrostomy tube 06/23/18 - Urology recommended further outpt f./u Hypercalcemia - likely hyperparathyroidism? - cont to monitor BMP, elevated PTH, Vit D pending - cont iv fluid for now, consult nephrology Obesity - dietary recommendation when stable - monitor BMP, check PTH, Vit D Radiological data: CT abdomen/pelvis: There is a right nephrostomy tube in proper position. There is moderate right hydronephrosis and hydroureter. There are stones in the right kidney. There is an obstructing stone in the proximal right ureter measuring 11 millimeters. Left kidney and ureter are unremarkable.. There is no bowel obstruction, colitis or enteritis. The appendix is normal.. Uterus and ovaries are unremarkable. There is no ascites, free air, abscess or adenopathy.. Subjective Date of service: 06/24/18 Interval history: Pt seen and examined No acute event o/n Abdominal pain improved Ca level still elevated Objective - Constitutional Vitals: Vital Signs - 12hr 06/24/18 06/24/18 06/24/18 08:20 12:00 12:20 Temperature 97.9 F Pulse Rate [ 110 H 120 H From Monitor] Respiratory 18 22 Rate O2 Sat by Pulse 100 100 Oximetry General appearance: Present: no acute distress, well-nourished - EENT Eyes: PERRL, EOM intact ENT: hearing intact, clear oral mucosa Ears: bilateral: normal - Neck Neck: supple, normal ROM - Respiratory Respiratory effort: normal Respiratory: bilateral: CTA - Cardiovascular Rhythm: regular Heart Sounds: Present: S1 & S2. Absent: gallop, rub Extremities: pulses intact, No edema, normal color, Full ROM - Gastrointestinal General gastrointestinal: Present: soft, tender, non-distended, normal bowel sounds - Integumentary Integumentary: clear, warm, dry - Musculoskeletal Musculoskeletal: 1, strength equal bilaterally - Neurologic Neurologic: moves all extremities - Psychiatric Psychiatric: memory intact, appropriate mood/affect, intact judgment & insight - Labs CBC & Chem 7: 06/24/18 05:00 06/25/18 10:21 Labs: Abnormal lab results 06/23/18 06/24/18 06/24/18 Range/Units 20:22 05:00 05:00 RBC 3.46 L (3.65-5.03) M/mm3 Hgb 8.1 L (10.1-14.3) gm/dl Hct 25.7 L D (30.3-42.9) % MCV 74 L (79-97) fl MCH 24 L (28-32) pg RDW 20.7 H (13.2-15.2) % Lymph % (Auto) 6.7 L (13.4-35.0) % [place] % (Auto) 8.9 H (0.0-7.3) % Lymph # 0.7 L (1.2-5.4) K/mm3 [place] # 1.0 H (0.0-0.8) K/mm3 Seg Neutrophils % 83.9 H (40.0-70.0) % Seg Neutrophils # 9.2 H (1.8-7.7) K/mm3 Chloride 107.2 H (98-107) mmol/L Glucose 118 H (65-100) mg/dL Calcium 11.8 H 12.0 H (8.4-10.2) mg/dL PTH Intact (15-65) pg/mL 06/24/18 Range/Units 08:01 RBC (3.65-5.03) M/mm3 Hgb (10.1-14.3) gm/dl Hct (30.3-42.9) % MCV (79-97) fl MCH (28-32) pg RDW (13.2-15.2) % Lymph % (Auto) (13.4-35.0) % [place] % (Auto) (0.0-7.3) % Lymph # (1.2-5.4) K/mm3 [place] # (0.0-0.8) K/mm3 Seg Neutrophils % (40.0-70.0) % Seg Neutrophils # (1.8-7.7) K/mm3 Chloride (98-107) mmol/L Glucose (65-100) mg/dL Calcium (8.4-10.2) mg/dL PTH Intact 494.7 H (15-65) pg/mL
[2018-06-24] MEDS ORDERED: LASIX IV SCH (18:00)
[2018-06-24] MEDS: TYLENOL PO PRN (20:50)
[2018-06-25] MEDS: NACL 0.9% 1000 ML 1,000 ML IV SCH ×2 (02:35→13:42)
[2018-06-25] MEDS: MORPHINE IV PRN (05:34)
[2018-06-25] MEDS: VANCOMYCIN/NS 1 GM/250 ML 1 GM/250 ML BAG IV SCH ×2 (05:34→18:26)
[2018-06-25] MEDS: ZOSYN/NS 4.5GM/100ML 4.5 GM/100 ML VIAL IV SCH (05:34)
[2018-06-25] MEDS: NORCO 5/325 PO PRN (08:14)
--- NOTE | 2018-06-25 10:35 | Progress Note ---
Assessment and Plan 1. Hypercalcemia: Associated with elevated PTH. Suspect parathyroid tumor. Parathyroid scan ordered. Vitamin D level pending. Continue IV fluids. Monitor Calcium level. 2. Right sided hydronephrosis: S/p exchange of right nephrostomy tube. 3. Pyelonephritis. 4. Medical non-compliance. Subjective Date of service: 06/25/18 Interval history: Patient was seen and examined at the bedside. Objective - Vital Signs Vital signs: Vital Signs - 12hr 06/25/18 06/25/18 06/25/18 00:00 04:00 08:00 Temperature 98.9 F 98 F 97.3 F L Pulse Rate 77 Pulse Rate [ 101 H 77 78 From Monitor] Pulse Rate [ 100 H 77 Left Brachial] Respiratory 20 18 15 Rate Blood Pressure 101/65 107/61 Blood Pressure 107/61 [Left] O2 Sat by Pulse 100 100 100 Oximetry - General Appearance General appearance: well-developed, well-nourished, appears stated age, other ( not in distress) EENT: ATNC, PERRL, hearing intact, vision intact Neck: supple Respiratory: Present: Clear to Ascultation Cardiology: regular, S1S2, no murmurs Gastrointestinal: normoactive bowel sounds, no tenderness, no distended, other ( right sided nephrostomy tube noted) Integumentary: no rash Neurologic: no focal deficit, no asterixis, alert and oriented x3 Musculoskeletal: other (no edema) - Lab 06/24/18 05:00 06/26/18 04:11 Most recent lab results Calcium 12.0 mg/dL (8.4-10.2) H 06/24/18 05:00
[2018-06-25] MEDS: SENOKOT PO SCH ×2 (10:49→21:52)
[2018-06-25 10:59] LABS: BUN/Creatinine Ratio 10; Blood Urea Nitrogen 8 mg/dL (7-17); Hemolysis Index 0
[2018-06-25 11:02] LABS: Calcium 12.8 mg/dL (8.4-10.2)
--- NOTE | 2018-06-25 13:14 | Progress Note ---
Assessment and Plan Sepsis with UTI Abdominal pain with obstructed nephrolithiasis Malfunctioning right nephrostomy tube Right hydronephrosis due to obstructed stone - cont iv fluid, pain Mx - cont iv abx and follow urine cx - negative blood cx - consulted urology, and IR - s/p replacement of the nephrostomy tube 06/23/18 - Urology recommended further outpt f./u Hypercalcemia - likely hyperparathyroidism? - cont to monitor BMP, elevated PTH, Vit D pending - cont iv fluid for now, consulted nephrology - will also start on lasix Obesity - dietary recommendation when stable - monitor BMP, check PTH, Vit D Radiological data: CT abdomen/pelvis: There is a right nephrostomy tube in proper position. There is moderate right hydronephrosis and hydroureter. There are stones in the right kidney. There is an obstructing stone in the proximal right ureter measuring 11 millimeters. Left kidney and ureter are unremarkable.. There is no bowel obstruction, colitis or enteritis. The appendix is normal.. Uterus and ovaries are unremarkable. There is no ascites, free air, abscess or adenopathy.. Subjective Date of service: 06/25/18 Interval history: Pt seen and examined No acute event o/n Abdominal pain improved Ca level still elevated upto 12.8 Objective - Exam Narrative Exam: General appearance: Present: no acute distress, well-nourished - EENT Eyes: PERRL, EOM intact ENT: hearing intact, clear oral mucosa Ears: bilateral: normal - Neck Neck: supple, normal ROM - Respiratory Respiratory effort: normal Respiratory: bilateral: CTA - Cardiovascular Rhythm: regular Heart Sounds: Present: S1 & S2. Absent: gallop, rub Extremities: pulses intact, No edema, normal color, Full ROM - Gastrointestinal General gastrointestinal: Present: soft, tender, non-distended, normal bowel sounds - Integumentary Integumentary: clear, warm, dry - Musculoskeletal Musculoskeletal: 1, strength equal bilaterally - Neurologic Neurologic: moves all extremities - Psychiatric Psychiatric: memory intact, appropriate mood/affect, intact judgment & insight - Constitutional Vitals: Vital Signs - 12hr 06/25/18 06/25/18 06/25/18 04:00 08:00 12:00 Temperature 98 F 97.3 F L 97.8 F Pulse Rate 77 Pulse Rate [ 77 78 81 From Monitor] Pulse Rate [ 77 Left Brachial] Respiratory 18 15 14 Rate Blood Pressure 107/61 Blood Pressure 107/61 [Left] O2 Sat by Pulse 100 100 100 Oximetry - Labs CBC & Chem 7: 06/24/18 05:00 06/26/18 04:11 Labs: Abnormal lab results 06/25/18 Range/Units 10:21 Chloride 109.2 H (98-107) mmol/L Calcium 12.8 H* (8.4-10.2) mg/dL Magnesium 1.40 L (1.7-2.3) mg/dL
[2018-06-25] MEDS: LASIX IV SCH (18:26)
[2018-06-26] MEDS: NACL 0.9% 1000 ML 1,000 ML IV SCH ×2 (03:54→22:04)
[2018-06-26] MEDS: VANCOMYCIN/NS 1 GM/250 ML 1 GM/250 ML BAG IV SCH ×2 (05:26→18:04)
[2018-06-26 05:33] LABS: BUN/Creatinine Ratio 9; Blood Urea Nitrogen 6 mg/dL (7-17); Hemolysis Index 4
[2018-06-26 05:43] LABS: Calcium 12.4 mg/dL (8.4-10.2)
[2018-06-26] MEDS: LASIX IV SCH (06:26)
--- NOTE | 2018-06-26 07:25 | Progress Note ---
Assessment and Plan 1. Hypercalcemia: Associated with elevated PTH. Suspect parathyroid tumor. Parathyroid scan ordered. Vitamin D levels are pending. Continue IV fluids and stop Lasix. IV Pamidronate ordered. Monitor Calcium level. 2. Right sided hydronephrosis: S/p exchange of right nephrostomy tube. 3. Pyelonephritis. 4. Medical non-compliance. Subjective Date of service: 06/26/18 Interval history: Patient was seen and examined at the bedside. Doing ok. Objective - Vital Signs Vital signs: Vital Signs - 12hr 06/25/18 06/25/18 06/25/18 19:30 19:40 19:50 Temperature Pulse Rate 107 H 109 H 106 H Pulse Rate [ From Monitor] Respiratory 24 23 13 Rate Blood Pressure 128/84 128/84 128/84 O2 Sat by Pulse Oximetry 06/25/18 06/25/18 06/25/18 19:51 20:00 20:11 Temperature 97.7 F Pulse Rate 117 H 117 H Pulse Rate [ 113 H From Monitor] Respiratory 16 21 Rate Blood Pressure 128/84 116/74 O2 Sat by Pulse 100 Oximetry 06/25/18 06/25/18 06/25/18 20:21 20:31 20:41 Temperature Pulse Rate 115 H 108 H 106 H Pulse Rate [ From Monitor] Respiratory 26 H 24 22 Rate Blood Pressure 110/65 110/65 110/65 O2 Sat by Pulse Oximetry 06/25/18 06/25/18 06/25/18 20:51 21:01 21:10 Temperature Pulse Rate 108 H 107 H 104 H Pulse Rate [ From Monitor] Respiratory 14 19 21 Rate Blood Pressure 110/65 115/59 115/59 O2 Sat by Pulse Oximetry 06/25/18 06/25/18 06/25/18 21:11 21:21 21:31 Temperature Pulse Rate 103 H 96 H 104 H Pulse Rate [ From Monitor] Respiratory 17 22 22 Rate Blood Pressure 115/59 115/59 115/59 O2 Sat by Pulse Oximetry 06/25/18 06/25/18 06/25/18 21:41 21:51 22:00 Temperature Pulse Rate 101 H 100 H 99 H Pulse Rate [ From Monitor] Respiratory 27 H 22 Rate Blood Pressure 115/59 115/59 O2 Sat by Pulse Oximetry 06/25/18 06/25/18 06/25/18 22:01 22:11 22:21 Temperature Pulse Rate 99 H 98 H 95 H Pulse Rate [ From Monitor] Respiratory 13 17 12 Rate Blood Pressure 115/59 115/59 115/59 O2 Sat by Pulse Oximetry 06/25/18 06/25/18 06/25/18 22:31 22:41 22:51 Temperature Pulse Rate 101 H 100 H 97 H Pulse Rate [ From Monitor] Respiratory 25 H 23 22 Rate Blood Pressure 115/59 115/59 115/59 O2 Sat by Pulse Oximetry 06/25/18 06/25/18 06/25/18 23:01 23:11 23:21 Temperature Pulse Rate 99 H 99 H 98 H Pulse Rate [ From Monitor] Respiratory 23 25 H 20 Rate Blood Pressure 115/59 115/59 115/59 O2 Sat by Pulse Oximetry 06/25/18 06/25/18 06/25/18 23:31 23:41 23:51 Temperature Pulse Rate 97 H 99 H 98 H Pulse Rate [ From Monitor] Respiratory 24 17 18 Rate Blood Pressure 115/59 115/59 116/80 O2 Sat by Pulse Oximetry 06/26/18 06/26/18 06/26/18 00:00 00:11 00:21 Temperature 98.0 F Pulse Rate 96 H 93 H 95 H Pulse Rate [ 97 H From Monitor] Respiratory 14 24 24 Rate Blood Pressure 122/82 122/82 116/80 O2 Sat by Pulse 100 Oximetry 06/26/18 06/26/18 06/26/18 00:31 00:41 00:51 Temperature Pulse Rate 101 H 98 H 100 H Pulse Rate [ From Monitor] Respiratory 27 H 21 25 H Rate Blood Pressure 116/80 116/80 122/82 O2 Sat by Pulse Oximetry 06/26/18 06/26/18 06/26/18 01:00 01:11 01:21 Temperature Pulse Rate 98 H 102 H 104 H Pulse Rate [ From Monitor] Respiratory 21 24 27 H Rate Blood Pressure 122/82 122/82 122/82 O2 Sat by Pulse Oximetry 06/26/18 06/26/18 06/26/18 01:31 01:41 01:51 Temperature Pulse Rate 103 H 103 H 100 H Pulse Rate [ From Monitor] Respiratory 26 H 26 H 22 Rate Blood Pressure 122/82 122/82 122/82 O2 Sat by Pulse Oximetry 06/26/18 06/26/18 06/26/18 02:01 02:11 02:21 Temperature Pulse Rate 102 H 102 H 105 H Pulse Rate [ From Monitor] Respiratory 26 H 22 21 Rate Blood Pressure 122/82 122/82 122/82 O2 Sat by Pulse Oximetry 06/26/18 06/26/18 06/26/18 02:31 02:41 02:51 Temperature Pulse Rate 99 H 95 H 93 H Pulse Rate [ From Monitor] Respiratory 20 25 H 24 Rate Blood Pressure 122/82 122/82 122/82 O2 Sat by Pulse Oximetry 06/26/18 06/26/18 06/26/18 03:01 03:11 03:21 Temperature Pulse Rate 96 H 88 95 H Pulse Rate [ From Monitor] Respiratory 26 H 26 H 26 H Rate Blood Pressure 122/82 122/82 122/82 O2 Sat by Pulse Oximetry 06/26/18 06/26/18 06/26/18 03:31 03:41 03:51 Temperature Pulse Rate 94 H 92 H 93 H Pulse Rate [ From Monitor] Respiratory 22 23 23 Rate Blood Pressure 122/82 122/82 122/82 O2 Sat by Pulse Oximetry 06/26/18 06/26/18 06/26/18 04:00 04:11 04:21 Temperature 98.0 F Pulse Rate 89 90 94 H Pulse Rate [ 93 H From Monitor] Respiratory 22 18 23 Rate Blood Pressure 102/64 102/64 102/64 O2 Sat by Pulse 100 Oximetry 06/26/18 06/26/18 06/26/18 04:31 04:41 04:51 Temperature Pulse Rate 100 H 93 H 92 H Pulse Rate [ From Monitor] Respiratory 20 16 17 Rate Blood Pressure 102/64 102/64 102/64 O2 Sat by Pulse Oximetry 06/26/18 06/26/18 06/26/18 05:01 05:11 05:21 Temperature Pulse Rate 89 87 92 H Pulse Rate [ From Monitor] Respiratory 23 22 22 Rate Blood Pressure 102/64 102/64 102/64 O2 Sat by Pulse Oximetry 06/26/18 06/26/18 05:31 05:41 Temperature Pulse Rate 90 87 Pulse Rate [ From Monitor] Respiratory 22 22 Rate Blood Pressure 102/64 102/64 O2 Sat by Pulse Oximetry - General Appearance General appearance: well-developed, well-nourished, appears stated age, other ( not in distress) EENT: ATNC, PERRL, mucous membranes moist, hearing intact, vision intact Neck: supple Respiratory: Present: Clear to Ascultation Cardiology: regular, S1S2, no murmurs Gastrointestinal: normoactive bowel sounds, tenderness (slight right flank tenderness noted) Integumentary: no rash, warm and dry Neurologic: no focal deficit, no asterixis, alert and oriented x3, other (right nephrostomy tube noted, urine is clear) Musculoskeletal: other (no edema) - Lab 06/24/18 05:00 06/26/18 04:11 Most recent lab results Calcium 12.4 mg/dL (8.4-10.2) H* 06/26/18 04:11 Magnesium 1.40 mg/dL (1.7-2.3) L 06/25/18 10:21
[2018-06-26] MEDS ORDERED: AREDIA 90 MG in NACL 0.9% 1000 ML 1,000 ML IV ONE (08:00)
--- NOTE | 2018-06-26 10:52 | Progress Note ---
Assessment and Plan Sepsis with UTI Abdominal pain with obstructed nephrolithiasis Malfunctioning right nephrostomy tube Right hydronephrosis due to obstructed stone - cont iv fluid, pain Mx - urine cx grew stap aureus and gm negative dago - cont iv abx . wait for final abx sensitivity - consult ID for duration of abx - negative blood cx - consulted urology, and IR - s/p replacement of the nephrostomy tube 06/23/18 - Urology recommended further outpt f./u Hypercalcemia - likely hyperparathyroidism? - cont to monitor BMP, elevated PTH, Vit D pending - cont iv fluid for now, consulted nephrology - will cont on lasix, ordered parathyroid scan Obesity - dietary recommendation when stable Brief History: 48-year-old female with h/o obstructing kidney stone status post right sided nephrostomy tube placement in 05/23. Patient was discharged on antibiotics following nephrostomy tube placement, but she reports not taking her antibiotics and has not followed up with urology as she was instructed to. The patient's nephrostomy bag broke a few days ago, and she broke off part of the nephrostomy bag. she began to have severe right flank pain and came to ER. She noted to hsave sepsis with UTI and hypercalcemia, has been placed on iv abx, urology and vascular surgeon consulted with replaceent of the nephrostomy tube. Radiological data: CT abdomen/pelvis: There is a right nephrostomy tube in proper position. There is moderate right hydronephrosis and hydroureter. There are stones in the right kidney. There is an obstructing stone in the proximal right ureter measuring 11 millimeters. Left kidney and ureter are unremarkable.. There is no bowel obstruction, colitis or enteritis. The appendix is normal.. Uterus and ovaries are unremarkable. There is no ascites, free air, abscess or adenopathy.. Subjective Date of service: 06/26/18 Interval history: Pt seen and examined No acute event o/n Abdominal pain improved Ca level still elevated upto 12.4 Objective - Exam Narrative Exam: General appearance: Present: no acute distress, well-nourished - EENT Eyes: PERRL, EOM intact ENT: hearing intact, clear oral mucosa Ears: bilateral: normal - Neck Neck: supple, normal ROM - Respiratory Respiratory effort: normal Respiratory: bilateral: CTA - Cardiovascular Rhythm: regular Heart Sounds: Present: S1 & S2. Absent: gallop, rub Extremities: pulses intact, No edema, normal color, Full ROM - Gastrointestinal General gastrointestinal: Present: soft, tender, non-distended, normal bowel sounds - Integumentary Integumentary: clear, warm, dry - Musculoskeletal Musculoskeletal: 1, strength equal bilaterally - Neurologic Neurologic: moves all extremities - Psychiatric Psychiatric: memory intact, appropriate mood/affect, intact judgment & insight - Constitutional Vitals: Vital Signs - 12hr 06/25/18 06/25/18 06/25/18 23:01 23:11 23:21 Temperature Pulse Rate 99 H 99 H 98 H Pulse Rate [ From Monitor] Respiratory 23 25 H 20 Rate Blood Pressure 115/59 115/59 115/59 O2 Sat by Pulse Oximetry 06/25/18 06/25/18 06/25/18 23:31 23:41 23:51 Temperature Pulse Rate 97 H 99 H 98 H Pulse Rate [ From Monitor] Respiratory 24 17 18 Rate Blood Pressure 115/59 115/59 116/80 O2 Sat by Pulse Oximetry 06/26/18 06/26/18 06/26/18 00:00 00:11 00:21 Temperature 98.0 F Pulse Rate 96 H 93 H 95 H Pulse Rate [ 97 H From Monitor] Respiratory 14 24 24 Rate Blood Pressure 122/82 122/82 116/80 O2 Sat by Pulse 100 Oximetry 06/26/18 06/26/18 06/26/18 00:31 00:41 00:51 Temperature Pulse Rate 101 H 98 H 100 H Pulse Rate [ From Monitor] Respiratory 27 H 21 25 H Rate Blood Pressure 116/80 116/80 122/82 O2 Sat by Pulse Oximetry 06/26/18 06/26/18 06/26/18 01:00 01:11 01:21 Temperature Pulse Rate 98 H 102 H 104 H Pulse Rate [ From Monitor] Respiratory 21 24 27 H Rate Blood Pressure 122/82 122/82 122/82 O2 Sat by Pulse Oximetry 06/26/18 06/26/18 06/26/18 01:31 01:41 01:51 Temperature Pulse Rate 103 H 103 H 100 H Pulse Rate [ From Monitor] Respiratory 26 H 26 H 22 Rate Blood Pressure 122/82 122/82 122/82 O2 Sat by Pulse Oximetry 06/26/18 06/26/18 06/26/18 02:01 02:11 02:21 Temperature Pulse Rate 102 H 102 H 105 H Pulse Rate [ From Monitor] Respiratory 26 H 22 21 Rate Blood Pressure 122/82 122/82 122/82 O2 Sat by Pulse Oximetry 06/26/18 06/26/18 06/26/18 02:31 02:41 02:51 Temperature Pulse Rate 99 H 95 H 93 H Pulse Rate [ From Monitor] Respiratory 20 25 H 24 Rate Blood Pressure 122/82 122/82 122/82 O2 Sat by Pulse Oximetry 06/26/18 06/26/18 06/26/18 03:01 03:11 03:21 Temperature Pulse Rate 96 H 88 95 H Pulse Rate [ From Monitor] Respiratory 26 H 26 H 26 H Rate Blood Pressure 122/82 122/82 122/82 O2 Sat by Pulse Oximetry 06/26/18 06/26/18 06/26/18 03:31 03:41 03:51 Temperature Pulse Rate 94 H 92 H 93 H Pulse Rate [ From Monitor] Respiratory 22 23 23 Rate Blood Pressure 122/82 122/82 122/82 O2 Sat by Pulse Oximetry 06/26/18 06/26/18 06/26/18 04:00 04:11 04:21 Temperature 98.0 F Pulse Rate 89 90 94 H Pulse Rate [ 93 H From Monitor] Respiratory 22 18 23 Rate Blood Pressure 102/64 102/64 102/64 O2 Sat by Pulse 100 Oximetry 06/26/18 06/26/18 06/26/18 04:31 04:41 04:51 Temperature Pulse Rate 100 H 93 H 92 H Pulse Rate [ From Monitor] Respiratory 20 16 17 Rate Blood Pressure 102/64 102/64 102/64 O2 Sat by Pulse Oximetry 06/26/18 06/26/18 06/26/18 05:01 05:11 05:21 Temperature Pulse Rate 89 87 92 H Pulse Rate [ From Monitor] Respiratory 23 22 22 Rate Blood Pressure 102/64 102/64 102/64 O2 Sat by Pulse Oximetry 06/26/18 06/26/18 06/26/18 05:31 05:41 05:51 Temperature Pulse Rate 90 87 89 Pulse Rate [ From Monitor] Respiratory 22 22 24 Rate Blood Pressure 102/64 102/64 102/64 O2 Sat by Pulse Oximetry 06/26/18 06/26/18 06/26/18 06:01 06:11 06:21 Temperature Pulse Rate 87 87 89 Pulse Rate [ From Monitor] Respiratory 22 23 23 Rate Blood Pressure 102/64 102/64 102/64 O2 Sat by Pulse Oximetry 06/26/18 06/26/18 06/26/18 06:31 06:41 06:51 Temperature Pulse Rate 85 91 H 87 Pulse Rate [ From Monitor] Respiratory 22 22 23 Rate Blood Pressure 122/82 122/82 122/82 O2 Sat by Pulse 97 97 98 Oximetry 06/26/18 06/26/18 06/26/18 07:01 07:11 07:21 Temperature Pulse Rate 85 90 99 H Pulse Rate [ From Monitor] Respiratory 22 22 12 Rate Blood Pressure 122/82 122/82 122/82 O2 Sat by Pulse 97 98 98 Oximetry 06/26/18 06/26/18 06/26/18 07:31 07:41 07:51 Temperature Pulse Rate 89 89 88 Pulse Rate [ From Monitor] Respiratory 22 11 L 13 Rate Blood Pressure 122/82 122/82 122/82 O2 Sat by Pulse 98 99 100 Oximetry 06/26/18 06/26/18 06/26/18 08:00 08:01 08:11 Temperature 97.5 F L Pulse Rate 87 89 Pulse Rate [ 96 H From Monitor] Respiratory 16 15 Rate Blood Pressure 122/82 122/82 O2 Sat by Pulse 100 98 100 Oximetry 06/26/18 06/26/18 06/26/18 08:21 08:31 08:41 Temperature Pulse Rate 81 85 87 Pulse Rate [ From Monitor] Respiratory 21 22 20 Rate Blood Pressure 122/82 112/73 112/73 O2 Sat by Pulse 98 97 97 Oximetry 06/26/18 06/26/18 06/26/18 08:51 09:01 09:11 Temperature Pulse Rate 84 84 86 Pulse Rate [ From Monitor] Respiratory 20 19 22 Rate Blood Pressure 112/73 112/73 112/73 O2 Sat by Pulse 97 97 99 Oximetry 06/26/18 06/26/18 09:21 10:00 Temperature Pulse Rate 87 96 H Pulse Rate [ From Monitor] Respiratory 20 Rate Blood Pressure 112/73 O2 Sat by Pulse 100 Oximetry - Labs CBC & Chem 7: 06/24/18 05:00 06/26/18 04:11 Labs: Abnormal lab results 06/25/18 06/26/18 Range/Units 10:21 04:11 Chloride 109.2 H (98-107) mmol/L BUN 6 L (7-17) mg/dL Glucose 114 H (65-100) mg/dL Calcium 12.8 H* 12.4 H* (8.4-10.2) mg/dL Magnesium 1.40 L (1.7-2.3) mg/dL
[2018-06-26] MEDS: SENOKOT PO SCH ×2 (11:28→22:02)
[2018-06-26] MEDS: MORPHINE IV PRN ×3 (11:28→23:44)
[2018-06-26] MEDS ORDERED: MAGNESIUM SULFATE 2GM/50ML 2 GM/50 ML BAG IV ONE (13:30)
--- NOTE | 2018-06-26 13:53 | Nuclear Medicine Report ---
NUCLEAR MEDICINE PARATHYROID SCAN: History: Parathyroid tumor. Comparison: No relevant comparison. FINDINGS: The initial and delayed images demonstrate normal distribution of the radiotracer throughout the thyroid bed. There is a focus of relatively intense radiotracer accumulation in the superior mediastinum near the level of the aortic arch on both the initial and delayed images. This presumably represents an ectopic parathyroid gland/adenoma. IMPRESSION: There is abnormal activity in the superior mediastinum concerning for an ectopic parathyroid adenoma. Consider correlation with CT chest with contrast.
[2018-06-26] MEDS ORDERED: MAXIPIME/NS 1 GM/100 ML 1 GM/100 ML BAG IV SCH (14:00)
[2018-06-26] MEDS: MAXIPIME/NS 1 GM/100 ML 1 GM/100 ML BAG IV SCH ×2 (14:54→22:04)
[2018-06-26] MEDS ORDERED: BACTRIM DS PO SCH (22:00)
[2018-06-26] MEDS: NORCO 5/325 PO PRN (22:02)
[2018-06-27] MEDS: MAXIPIME/NS 1 GM/100 ML 1 GM/100 ML BAG IV SCH ×3 (05:05→22:17)
[2018-06-27 05:47] LABS: BUN/Creatinine Ratio 10; Blood Urea Nitrogen 6 mg/dL (7-17); Calcium 11.6 mg/dL (8.4-10.2); Hemolysis Index 9
[2018-06-27] MEDS: MORPHINE IV PRN (06:07)
[2018-06-27] MEDS: VANCOMYCIN/NS 1 GM/250 ML 1 GM/250 ML BAG IV SCH ×2 (06:08→18:48)
--- NOTE | 2018-06-27 09:00 | Progress Note ---
Assessment and Plan 1. Hypercalcemia: Associated with elevated PTH. Parathyroid scan suggestive of ectopic parathyroid in mediastinum. CT chest with IV contrast ordered. Vitamin D levels are pending. Continue IV fluids. S/p IV Pamidronate, Ca level is improving. Monitor Calcium level. 2. Right sided hydronephrosis: S/p exchange of right nephrostomy tube. 3. Pyelonephritis. 4. Medical non-compliance. Subjective Date of service: 06/27/18 Interval history: Patient was seen and examined at the bedside. Doing ok. Objective - Vital Signs Vital signs: Vital Signs - 12hr 06/26/18 06/26/18 06/26/18 21:10 21:20 21:30 Temperature Pulse Rate 85 86 90 Respiratory 16 28 H 19 Rate Blood Pressure 118/77 118/77 118/77 O2 Sat by Pulse 100 97 100 Oximetry 06/26/18 06/26/18 06/26/18 21:40 21:50 22:00 Temperature Pulse Rate 91 H 87 90 Respiratory 25 H 27 H 30 H Rate Blood Pressure 118/77 118/77 118/77 O2 Sat by Pulse 99 99 100 Oximetry 06/26/18 06/26/18 06/26/18 22:02 22:10 22:20 Temperature Pulse Rate 92 H 90 Respiratory 22 28 H 12 Rate Blood Pressure 118/77 118/77 O2 Sat by Pulse 99 100 Oximetry 06/26/18 06/26/18 06/26/18 22:30 22:40 22:50 Temperature Pulse Rate 91 H 98 H 95 H Respiratory 27 H 14 17 Rate Blood Pressure 118/77 118/77 118/77 O2 Sat by Pulse 99 100 99 Oximetry 06/26/18 06/26/18 06/26/18 23:00 23:10 23:20 Temperature Pulse Rate 95 H 92 H 93 H Respiratory 23 15 24 Rate Blood Pressure 118/77 118/77 118/77 O2 Sat by Pulse 100 99 97 Oximetry 06/26/18 06/26/18 06/26/18 23:30 23:40 23:44 Temperature Pulse Rate 91 H 89 Respiratory 21 23 16 Rate Blood Pressure 118/77 118/77 O2 Sat by Pulse 100 99 Oximetry 06/26/18 06/27/18 06/27/18 23:50 00:00 00:10 Temperature 98 F Pulse Rate 89 90 93 H Respiratory 12 19 18 Rate Blood Pressure 103/85 132/85 132/85 O2 Sat by Pulse 99 100 98 Oximetry 06/27/18 06/27/18 06/27/18 00:20 00:30 00:40 Temperature Pulse Rate 87 88 85 Respiratory 22 16 19 Rate Blood Pressure 132/85 132/85 132/85 O2 Sat by Pulse 100 99 99 Oximetry 06/27/18 06/27/18 06/27/18 00:50 01:00 01:10 Temperature Pulse Rate 90 80 Respiratory 13 17 Rate Blood Pressure 132/85 132/85 132/85 O2 Sat by Pulse 99 98 100 Oximetry 06/27/18 06/27/18 06/27/18 01:20 01:30 01:40 Temperature Pulse Rate 79 76 71 Respiratory 14 17 16 Rate Blood Pressure 132/85 132/85 132/85 O2 Sat by Pulse 100 98 100 Oximetry 06/27/18 06/27/18 06/27/18 01:50 02:00 02:06 Temperature 98.0 F Pulse Rate 78 80 Respiratory 17 15 Rate Blood Pressure 132/85 132/85 O2 Sat by Pulse 99 100 Oximetry 06/27/18 06/27/18 06/27/18 02:10 02:11 02:20 Temperature 98.2 F Pulse Rate 82 79 Respiratory 16 19 Rate Blood Pressure 132/85 132/85 O2 Sat by Pulse 100 98 Oximetry 06/27/18 06/27/18 06/27/18 02:30 02:40 02:50 Temperature Pulse Rate 77 74 76 Respiratory 18 20 14 Rate Blood Pressure 132/85 132/85 132/85 O2 Sat by Pulse 97 99 98 Oximetry 06/27/18 06/27/18 06/27/18 03:00 03:10 03:20 Temperature Pulse Rate 76 76 73 Respiratory 18 20 10 L Rate Blood Pressure 132/85 132/85 132/85 O2 Sat by Pulse 99 98 98 Oximetry 06/27/18 06/27/18 06/27/18 03:30 03:40 03:50 Temperature Pulse Rate 76 75 71 Respiratory 17 18 11 L Rate Blood Pressure 132/85 132/85 132/85 O2 Sat by Pulse 99 98 98 Oximetry 06/27/18 06/27/18 06/27/18 04:00 04:10 04:20 Temperature 97.7 F Pulse Rate 69 71 69 Respiratory 14 18 16 Rate Blood Pressure 121/79 121/79 121/79 O2 Sat by Pulse 100 99 98 Oximetry 06/27/18 06/27/18 06/27/18 04:30 04:33 04:40 Temperature 97.7 F Pulse Rate 67 70 Respiratory 16 16 Rate Blood Pressure 121/79 121/79 O2 Sat by Pulse 99 98 Oximetry 06/27/18 06/27/18 06/27/18 04:50 05:00 05:10 Temperature Pulse Rate 76 70 79 Respiratory 15 16 15 Rate Blood Pressure 121/79 121/79 121/79 O2 Sat by Pulse 99 98 Oximetry 06/27/18 06/27/18 06/27/18 05:20 05:30 05:40 Temperature Pulse Rate 78 73 75 Respiratory 18 7 L 19 Rate Blood Pressure 121/79 121/79 121/79 O2 Sat by Pulse Oximetry 06/27/18 06/27/18 06/27/18 05:50 06:00 06:07 Temperature Pulse Rate 75 72 Respiratory 16 19 21 Rate Blood Pressure 121/79 121/79 O2 Sat by Pulse Oximetry 06/27/18 06/27/18 06/27/18 06:10 06:23 06:30 Temperature Pulse Rate 81 100 H 74 Respiratory 19 18 Rate Blood Pressure 121/79 121/79 121/79 O2 Sat by Pulse 74 L Oximetry 06/27/18 06/27/18 06/27/18 06:40 06:50 07:00 Temperature Pulse Rate 79 74 90 Respiratory 12 20 22 Rate Blood Pressure 121/79 121/79 121/79 O2 Sat by Pulse Oximetry 06/27/18 06/27/18 06/27/18 07:12 07:20 07:30 Temperature Pulse Rate 78 72 81 Respiratory 16 16 17 Rate Blood Pressure 121/79 121/79 121/79 O2 Sat by Pulse Oximetry 06/27/18 06/27/18 06/27/18 07:42 07:50 08:00 Temperature 98.6 F Pulse Rate 73 79 Respiratory 18 17 Rate Blood Pressure 121/79 121/79 121/79 O2 Sat by Pulse 86 100 Oximetry 06/27/18 06/27/18 06/27/18 08:10 08:20 08:30 Temperature Pulse Rate 100 H 86 86 Respiratory 23 13 11 L Rate Blood Pressure 121/79 127/79 127/79 O2 Sat by Pulse 98 100 99 Oximetry - General Appearance General appearance: well-developed, well-nourished, appears stated age, other ( not in distress) EENT: ATNC, PERRL, hearing intact, vision intact Neck: supple Respiratory: Present: Clear to Ascultation Cardiology: regular, S1S2, no murmurs Gastrointestinal: normoactive bowel sounds, tenderness (right flank), no distended, other (right sided nephrostomy tube noted) Integumentary: no rash, warm and dry Neurologic: no focal deficit, no asterixis, alert and oriented x3 Musculoskeletal: other (no edema) - Lab 06/24/18 05:00 06/28/18 04:15 Most recent lab results Calcium 11.6 mg/dL (8.4-10.2) H 06/27/18 05:05 Phosphorus 1.70 mg/dL (2.5-4.5) L 06/27/18 05:05 Magnesium 1.60 mg/dL (1.7-2.3) L 06/27/18 05:05
[2018-06-27] MEDS ORDERED: MAGNESIUM SULFATE 2GM/50ML 2 GM/50 ML BAG IV ONE (09:30)
[2018-06-27] MEDS ORDERED: AMBIEN PO PRN (11:33)
[2018-06-27] MEDS: PHOS-NAK PO SCH (12:32)
[2018-06-27] MEDS: SENOKOT PO SCH ×2 (12:38→22:18)
--- NOTE | 2018-06-27 14:16 | Progress Note ---
Assessment and Plan Assessment and plan: 48-year-old female with h/o obstructing kidney stone status post right sided nephrostomy tube placement in 05/23. Patient was discharged on antibiotics following nephrostomy tube placement, but she reports not taking her antibiotics and has not followed up with urology as she was instructed to. The patient's nephrostomy bag broke a few days ago, and she broke off part of the nephrostomy bag. she began to have severe right flank pain and came to ER. She noted to hsave sepsis with UTI and hypercalcemia, has been placed on iv abx, urology and vascular surgeon consulted with replaceent of the nephrostomy tube. Sepsis with UTI - Urine culture grew staph and Klebsiella pneumonia - ID consulted to determine the duration of antibiotic Abdominal pain with obstructed nephrolithiasis Malfunctioning right nephrostomy tube Right hydronephrosis due to obstructed stone - cont iv fluid, pain Mx - negative blood cx - consulted urology, and IR - s/p replacement of the nephrostomy tube 06/23/18 - Urology recommended further outpt f/u Hypercalcemia - likely hyperparathyroidism - cont to monitor BMP, elevated PTH, Vit D pending - cont iv fluid for now, consulted nephrology - will cont on lasix Obesity - dietary recommendation when stable CT abdomen/pelvis: There is a right nephrostomy tube in proper position. There is moderate right hydronephrosis and hydroureter. There are stones in the right kidney. There is an obstructing stone in the proximal right ureter measuring 11 millimeters. Left kidney and ureter are unremarkable.. There is no bowel obstruction, colitis or enteritis. The appendix is normal.. Uterus and ovaries are unremarkable. There is no ascites, free air, abscess or adenopathy. NM parathyroid scan There is abnormal activity in the superior mediastinum concerning for an ectopic parathyroid adenoma. Consider correlation with CT chest with contrast. CT chest; Approximate 3 cm solid enhancing mass in the anterior mediastinum. Visually this has the appearance a lymph node or a nonspecific mass. This does appear to correlate with the abnormal uptake in the superior mediastinum seen on nuclear medicine parathyroid scan performed 06/26/18. An ectopic parathyroid adenoma should be considered. I cannot entirely exclude other etiologies such as an enlarged lymph node. Please correlate with the patient's clinical presentation and history. History Interval history: Patient was seen and evaluated this morning, patient didn't have new complaints. Hospitalist Physical - Physical exam Narrative exam: Not in cardiopulmonary distress. The patient is obese. Vital signs as documented. Head exam is unremarkable. No scleral icterus . Neck is without jugular venous distension, thyromegaly, or carotid bruits. Lungs are clear to auscultation. Cardiac exam reveals regular rate and Rhythm. First and second heart sounds normal. No murmurs, rubs or gallops. Abdominal exam reveals normal bowel sounds, no masses, no organomegaly and no aortic enlargement. Extremities are nonedematous and both femoral and pedal pulses are normal. PACK OPERATOR: Alert and oriented 3. No focal weakness. - Constitutional Vitals: Temp Pulse Resp BP Pulse Ox 98.3 F 100 H 15 134/79 100 06/27/18 12:00 06/27/18 12:30 06/27/18 12:30 06/27/18 12:30 06/27/18 12:30 General appearance: Present: no acute distress, well-nourished Results - Labs CBC & Chem 7: 06/24/18 05:00 06/27/18 05:05 Labs: Laboratory Last Values WBC 11.0 K/mm3 (4.5-11.0) 06/24/18 05:00 RBC 3.46 M/mm3 (3.65-5.03) L 06/24/18 05:00 Hgb 8.1 gm/dl (10.1-14.3) L 06/24/18 05:00 Hct 25.7 % (30.3-42.9) L D 06/24/18 05:00 MCV 74 fl (79-97) L 06/24/18 05:00 MCH 24 pg (28-32) L 06/24/18 05:00 MCHC 32 % (30-34) 06/24/18 05:00 RDW 20.7 % (13.2-15.2) H 06/24/18 05:00 Plt Count 318 K/mm3 (140-440) 06/24/18 05:00 Lymph % (Auto) 6.7 % (13.4-35.0) L 06/24/18 05:00 [place] % (Auto) 8.9 % (0.0-7.3) H 06/24/18 05:00 Eos % (Auto) 0.3 % (0.0-4.3) 06/24/18 05:00 Baso % (Auto) 0.2 % (0.0-1.8) 06/24/18 05:00 Lymph # 0.7 K/mm3 (1.2-5.4) L 06/24/18 05:00 Hughes # 1.0 K/mm3 (0.0-0.8) H 06/24/18 05:00 Eos # 0.0 K/mm3 (0.0-0.4) 06/24/18 05:00 Baso # 0.0 K/mm3 (0.0-0.1) 06/24/18 05:00 Seg Neutrophils % 83.9 % (40.0-70.0) H 06/24/18 05:00 Seg Neutrophils # 9.2 K/mm3 (1.8-7.7) H 06/24/18 05:00 Sodium 140 mmol/L (137-145) 06/27/18 05:05 Potassium 4.0 mmol/L (3.6-5.0) 06/27/18 05:05 Chloride 108.2 mmol/L (98-107) H 06/27/18 05:05 Carbon Dioxide 24 mmol/L (22-30) 06/27/18 05:05 Anion Gap 12 mmol/L 06/27/18 05:05 BUN 6 mg/dL (7-17) L 06/27/18 05:05 Creatinine 0.6 mg/dL (0.7-1.2) L 06/27/18 05:05 Estimated GFR > 60 ml/min 06/27/18 05:05 BUN/Creatinine Ratio 10 % 06/27/18 05:05 Glucose 99 mg/dL (65-100) 06/27/18 05:05 Calcium 11.6 mg/dL (8.4-10.2) H 06/27/18 05:05 Phosphorus 1.70 mg/dL (2.5-4.5) L 06/27/18 05:05 Magnesium 1.60 mg/dL (1.7-2.3) L 06/27/18 05:05 Total Bilirubin 0.20 mg/dL (0.1-1.2) 06/23/18 03:12 AST 11 units/L (5-40) 06/23/18 03:12 ALT 8 units/L (7-56) 06/23/18 03:12 Alkaline Phosphatase 126 units/L (35-129) 06/23/18 03:12 Total Protein 7.1 g/dL (6.3-8.2) 06/23/18 03:12 Albumin 3.8 g/dL (3.9-5) L 06/23/18 03:12 Albumin/Globulin Ratio 1.2 % 06/23/18 03:12 PTH Intact 494.7 pg/mL (15-65) H 06/24/18 08:01 Urine Color Yellow (Yellow) 06/23/18 Unknown Urine Turbidity Slightly-cloudy (Clear) 06/23/18 Unknown Urine pH 6.0 (5.0-7.0) 06/23/18 Unknown Ur Specific [place] 1.013 (1.003-1.030) 06/23/18 Unknown Urine Protein <15 mg/dl mg/dL (Negative) 06/23/18 Unknown Urine Glucose (UA) Neg mg/dL (Negative) 06/23/18 Unknown Urine Ketones Neg mg/dL (Negative) 06/23/18 Unknown Urine Blood Sm (Negative) 06/23/18 Unknown Urine Nitrite Neg (Negative) 06/23/18 Unknown Urine Bilirubin Neg (Negative) 06/23/18 Unknown Urine Urobilinogen 2.0 mg/dL (<2.0) 06/23/18 Unknown Ur Leukocyte Esterase Lg (Negative) 06/23/18 Unknown Urine WBC (Auto) > 182.0 /HPF (0.0-6.0) H 06/23/18 Unknown Urine RBC (Auto) 8.0 /HPF (0.0-6.0) 06/23/18 Unknown U Epithel Cells (Auto) < 1.0 /HPF (0-13.0) 06/23/18 Unknown Urine Bacteria (Auto) 1+ /HPF (Negative) 06/23/18 Unknown Urine Mucus Few /HPF 06/23/18 Unknown Vancomycin Trough 9.7 ug/mL (5.0-20.0) 06/26/18 16:25 Blood Type B POSITIVE 06/23/18 20:22 Antibody Screen Negative 06/23/18 20:22
--- NOTE | 2018-06-27 14:17 | Cat Scan Report ---
CT CHEST WITH CONTRAST: HISTORY: Mediastinal tumor. COMPARISON: Parathyroid scan dated 06/26/18. TECHNIQUE: Helical CT in 1.25mm intervals following IV contrast. Sagittal and coronal reformatted images. FINDINGS: Thyroid gland: Normal. Tracheobronchial tree: Normal. Esophagus: Normal. Heart: Normal. Pericardium: Normal. Mediastinum: A 3.1 x 2.0 x 3.5 cm solid, ovoid, enhancing mass is identified in the anterior mediastinum. No additional mediastinal, axillary or supraclavicular mass. Lung Sexton: Well-aerated. No underlying parenchymal lung disease is identified. A tiny 5 mm cyst is noted in the lateral right lower lobe. A tiny 5 mm subpleural nodule is identified in the lateral right middle lobe. These have benign appearances. Pleural Spaces: Normal. Musculoskeletal: Normal. IMPRESSION: Approximate 3 cm solid enhancing mass in the anterior mediastinum. Visually this has the appearance a lymph node or a nonspecific mass. This does appear to correlate with the abnormal uptake in the superior mediastinum seen on nuclear medicine parathyroid scan performed 06/26/18. An ectopic parathyroid adenoma should be considered. I cannot entirely exclude other etiologies such as an enlarged lymph node. Please correlate with the patient's clinical presentation and history.
--- NOTE | 2018-06-27 16:19 | Consultation ---
History of Present Illness - Reason for Consult Consult date: 06/27/18 UTI Requesting physician: JHONNY LOUIS - History of Present Illness The patient is a 48-year-old female with recurrent nephrolithiasis likely secondary to hypercalcemia. She has a history of obstructing right ureteral stone causing hydronephrosis status post right-sided nephrostomy tube placement. The nephrostomy tube apparently was exchanged in last month however the patient did not follow-up with the urologist after that. The nephrostomy bag broke and developed obstruction. She presented to the emergency room with severe flank pain. CT scan of the abdomen and pelvis revealed moderate right- sided hydronephrosis and hydroureters. Interventional radiology was consulted and patient had nephrostomy tube exchange done. Patient was started on IV Zosyn and vancomycin. Zosyn was then switched to cefepime. Infectious diseases has been consulted for antibiotic recommendations on discharge. Currently, she feels well and almost back to baseline. Denies any fevers or chills. Reports mild abdominal pain. Denies any hematuria. Review of Systems: General: no fevers,chills or rigors except on admission. HEENT: no new visual disturbance Respiratory: No cough, sputum, hemoptysis or shortness of breath Cardiovascular: No chest pain, syncope Gastrointestinal: No nausea, vomiting or diarrhea at present. Had vomiting once prior to admission. Genitourinary: No dysuria or hematuria Musculoskeletal: No new or worsening neck pain or back pain Neurologic: No headaches, seizures Hematologic: No easy bruising or bleeding Endocrine: No night sweats or acute weight loss Skin: negative for rash, jaundice Psychiatric: No suicidal or homicidal ideation Past History Past Medical History: other (multiple ureteric stent with h/o kidney stone, hypercalcemia) Past Surgical History: Other (multiple ureteric stent ) Social history: full code. denies: smoking, alcohol abuse, prescription drug abuse, IV drug use Family history: denies: CAD, cancer, diabetes, hypertension, stroke Medications and Allergies Allergies Allergy/AdvReac Type Severity Reaction Status Date / Time No Known Allergies Allergy Verified 12/21/17 16:53 Home Medications Medication Instructions Recorded Confirmed Last Taken Type Lactobacillus Combination No.4 1 each PO DAILY #30 capsule 05/11/18 Unknown Rx [Probiotic] levoFLOXacin [Levaquin] 750 mg PO QDAY #14 tablet 05/11/18 Unknown Rx traMADol [Ultram] 50 mg PO Q6HR PRN #10 tablet 05/11/18 Unknown Rx cephALEXin [Keflex] 500 mg PO Q6HR 7 Days #28 capsule 06/27/18 Unknown Rx Active Meds: Active Medications Acetaminophen (Tylenol) 650 mg PO Q4H PRN PRN Reason: Pain MILD(1-3)/Fever >100.5/WILSON Last Admin: 06/24/18 20:50 Dose: 650 mg Acetaminophen/Hydrocodone Bitart ([place] 5/325) 2 each PO Q6H PRN PRN Reason: Pain, Moderate (4-6) Last Admin: 06/26/18 22:02 Dose: 2 each Hydralazine HCl (Apresoline) 5 mg IV Q30MIN PRN PRN Reason: Hypertension Sodium Chloride (Nacl 0.9% 1000 Ml) 1,000 mls @ 100 mls/hr IV DIRECT SONIA Last Admin: 06/26/18 22:04 Dose: 100 mls/hr Cefepime HCl (Maxipime/Ns 1 Gm/100 Ml) 1 gm in 100 mls @ 200 mls/hr IV Q8HR SONIA ; Protocol Last Admin: 06/27/18 14:12 Dose: 200 mls/hr Vancomycin HCl (Vancomycin/Ns 1 Gm/250 Ml) 1 gm in 250 mls @ 166.667 mls/hr IV Q12H SONIA; Protocol Last Admin: 06/27/18 06:08 Dose: 166.667 mls/hr Metoclopramide HCl (Reglan) 10 mg PO Q6H PRN PRN Reason: Nausea And Vomiting Morphine Sulfate (Morphine) 2 mg IV Q3H PRN PRN Reason: Pain , Severe (7-10) Last Admin: 06/27/18 06:07 Dose: 2 mg Ondansetron HCl (Zofran) 4 mg IV Q8H PRN PRN Reason: Nausea And Vomiting Potassium Phos/Sodium Phos (Phos-Nak) 2 each PO TID SONIA Last Admin: 06/27/18 12:32 Dose: 2 each Senna (Senokot) 8.6 mg PO Q12HR SONIA Last Admin: 06/27/18 12:38 Dose: Not Given Zolpidem Tartrate (Ambien) 5 mg PO QHS PRN PRN Reason: Sleep Physical Examination - Physical Exam Narrative exam: Physical Exam: Constitutional: Alert, cooperative. No acute distress Head, Ears, Nose: Normocephalic, atraumatic. External ears, nose normal Eyes: Conjunctivae/corneas clear. No icterus. No ptosis. Neck: Supple, no meningeal signs Oral: no thrush or ulcers Cardiovascular: S1, S2 normal. Respiratory: Good air entry, clear to auscultation bilaterally GI: Soft, mild diffuse tenderness; bowel sounds normal. No peritoneal signs. R CVA site with nephrostomy tube draining clear urine. Musculoskeletal: No pedal edema, no cyanosis. Skin: No rash or abscess Hem/Lymphatic: No palpable cervical or supraclavicular nodes. No lymphangitis Psych: Mood ok. Affect normal Neurological: Awake, alert, oriented. No gross abnormality - Constitutional Vitals: Vital Signs Temp Pulse Resp BP Pulse Ox 98.1 F 109 H 38 H 138/104 100 06/27/18 16:00 06/27/18 16:00 06/27/18 16:00 06/27/18 16:00 06/27/18 16:00 Temperature -Last 24 Hours Temperature 98.1 F Temperature 98.3 F Temperature 98.6 F Temperature 97.7 F Temperature 97.7 F Temperature 98.2 F Temperature 98.0 F Temperature 98 F Temperature 98.2 F Temperature 98.2 F Results - Labs CBC & Chem 7: 06/24/18 05:00 06/27/18 05:05 Labs: Abnormal lab results 06/27/18 Range/Units 05:05 Chloride 108.2 H (98-107) mmol/L BUN 6 L (7-17) mg/dL Creatinine 0.6 L (0.7-1.2) mg/dL Calcium 11.6 H (8.4-10.2) mg/dL Phosphorus 1.70 L (2.5-4.5) mg/dL Magnesium 1.60 L (1.7-2.3) mg/dL - Imaging and Cardiology CT scan - abdomen: report reviewed, image reviewed (CT Abdomen and pelvis on admission showed moderate right-sided hydronephrosis, hydroureter and obstructing stone in the right proximal ureter.) CT scan - chest: report reviewed, image reviewed (CT chest with contrast showed a 3 cm solid enhancing mass in the anterior mediastinum concerning for possible parathyroid adenoma) Assessment and Plan Cultures: 06/23/2018 blood culture: No growth 06/23/2018 urine culture: MSSA 10K-100K CFU/ml, ESBL Klebsiella <10K 06/23/2018 urine culture: MSSA 10K-100K CFU/ml 06/25/2018 urine culture: 10K-100K yeast. A/P: 48-year-old female with recurrent nephrolithiasis secondary to hypercalcemia admitted with: #1 Sepsis, present on admission secondary to UTI, right-sided hydronephrosis and hydroureter in the setting of ureteral stone and malfunctioning nephrostomy tube: Status post nephrostomy exchange by IR. Patient had sepsis on admission which has now resolved. Blood cultures negative. WBC improved. Initial urine culture grew Staphylococcus aureus as well as Klebsiella pneumoniae, latter with low colony count and hence does not need to be treated. Her urine culture grew Staph alone. Most recent urine culture on 06/25/2018 grew yeast which is likely reflective of colonization. She has received IV vancomycin, Zosyn and Cefepime during the hospitalization. Recs: Oral Keflex 500 mg 4 times a day for 7 more days for MSSA Follow-up with urology I offered ID clinic follow up, patient stated she is not interested, she just wants to go home and doesn't like the fact that she was downgraded from [facility] to the regular floor. Plan discussed with Dr. Louis. Please call with questions. MD Ryley Craw[facility] C: [phone] O: [phone] F: [phone]
[2018-06-28 05:14] LABS: BUN/Creatinine Ratio 7; Blood Urea Nitrogen 4 mg/dL (7-17); Calcium 10.7 mg/dL (8.4-10.2); Hemolysis Index 0
[2018-06-28 05:21] VITALS: BP 114/69
[2018-06-28] MEDS: NORCO 5/325 PO PRN (08:27)
--- NOTE | 2018-06-28 09:26 | Progress Note ---
Assessment and Plan 1. Hypercalcemia: Associated with elevated PTH. Parathyroid scan suggestive of ectopic parathyroid in mediastinum. CT chest with IV contrast confirms mass in the mediastinum. Vitamin D levels are pending. S/p IV Pamidronate, Ca level is improving. Monitor Calcium level. 2. Right sided hydronephrosis: S/p exchange of right nephrostomy tube. 3. Pyelonephritis. 4. Medical non-compliance. Explained patient that she needs to see Urologist and [place] [facility]. Subjective Date of service: 06/28/18 Interval history: Patient was seen and examined at the bedside. Feeling better. Objective - Vital Signs Vital signs: Vital Signs - 12hr 06/27/18 06/27/18 06/28/18 23:26 23:32 05:08 Temperature 98.4 F 98.4 F 98.3 F Pulse Rate 93 H 70 89 Respiratory 20 18 20 Rate Blood Pressure 129/86 140/57 114/69 O2 Sat by Pulse 100 94 97 Oximetry - General Appearance General appearance: well-developed, well-nourished, appears stated age, other ( not in distress) EENT: ATNC, PERRL, mucous membranes moist, hearing intact, vision intact Neck: supple Respiratory: Present: Clear to Ascultation Cardiology: regular, S1S2, no murmurs Gastrointestinal: normoactive bowel sounds, no tenderness, no distended, other ( right sided nephrostomy tube noted) Integumentary: no rash, warm and dry Neurologic: no focal deficit, no asterixis, alert and oriented x3 Musculoskeletal: other (no edema) - Lab 06/24/18 05:00 06/28/18 04:15 Most recent lab results Calcium 10.7 mg/dL (8.4-10.2) H 06/28/18 04:15 Phosphorus 2.00 mg/dL (2.5-4.5) L 06/28/18 04:15 Magnesium 1.90 mg/dL (1.7-2.3) 06/28/18 04:15
--- NOTE | 2018-06-28 10:26 | Discharge Summary ---
Providers - Providers Date of Admission: 06/23/18 07:31 Attending physician: JHONNY LOUIS MD 06/23/18 06:25 Consult to Physician [CONS] Urgent Comment: Consulting Provider: JUANIS MARTINEZ Physician Instructions: Reason For Exam: infected stone 06/24/18 10:43 Consult to Physician [CONS] Routine Comment: Consulting Provider: DYLAN DORANTES Physician Instructions: Reason For Exam: hypercalcemia 06/27/18 08:49 Consult to Physician [CONS] Routine Comment: Consulting Provider: DELFIN RAYMOND Physician Instructions: Reason For Exam: UTI Primary care physician: [employer] Hospitalization Reason for admission: complicated nephrostomy, UTI, hypercalcemia, lung mass Condition: Good Pertinent studies: CT abdomen/pelvis: There is a right nephrostomy tube in proper position. There is moderate right hydronephrosis and hydroureter. There are stones in the right kidney. There is an obstructing stone in the proximal right ureter measuring 11 millimeters. Left kidney and ureter are unremarkable.. There is no bowel obstruction, colitis or enteritis. The appendix is normal.. Uterus and ovaries are unremarkable. There is no ascites, free air, abscess or adenopathy. NM parathyroid scan There is abnormal activity in the superior mediastinum concerning for an ectopic parathyroid adenoma. Consider correlation with CT chest with contrast. CT chest; Approximate 3 cm solid enhancing mass in the anterior mediastinum. Visually this has the appearance a lymph node or a nonspecific mass. This does appear to correlate with the abnormal uptake in the superior mediastinum seen on nuclear medicine parathyroid scan performed 06/26/18. An ectopic parathyroid adenoma should be considered. I cannot entirely exclude other etiologies such as an enlarged lymph node. Please correlate with the patient's clinical presentation and history. Hospital course: 48-year-old female with h/o obstructing kidney stone status post right sided nephrostomy tube placement in 05/23. Patient was discharged on antibiotics following nephrostomy tube placement, but she reports not taking her antibiotics and has not followed up with urology as she was instructed to. The patient's nephrostomy bag broke a few days ago, and she broke off part of the nephrostomy bag. she began to have severe right flank pain and came to ER. She noted to have sepsis with UTI and hypercalcemia, has been placed on iv abx, urology and vascular surgeon consulted with replacement of the nephrostomy tube. Sepsis with UTI; Urine culture grew staph and Klebsiella pneumonia; was treated with IV antibiotics and ID was consulted and recommend keflex at the time discharge. Abdominal pain with obstructed nephrolithiasis, Malfunctioning right nephrostomy tube, Right hydronephrosis due to obstructed stone; patient was treated with iv fluid, pain Mx; consulted and IR did replacement of the nephrostomy tube 06/23/18. Urology recommended further outpt f/u Hypercalcemia; was treated with IV fluids and get better. NM and CT chest was done results as stated above. Discussed with the patient about the chest mass and NM finding told her to have follow up with [place] [facility] and patient verbalized she understood the management plan and said she will make an appointment. F/U with [facility] as an O/P. 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 urology, nephrology and ID cleared the patient for discharge. Obesity; counseled about dietary modification and weight loss. patient was hemodynamically stable at the time of discharge. Appropriate medication scrips were given. patient's questions and concerns were addressed at the bed side. Disposition: DC-01 TO HOME OR SELFCARE Time spent for discharge: 32 minutes - Discharge Diagnoses (1) Complication of nephrostomy Status: Acute (2) Hypercalcemia Status: Acute (3) UTI (urinary tract infection) Status: Acute (4) Hydronephrosis with renal and ureteral calculous obstruction Status: Acute (5) Hypokalemia Status: Acute (6) Kidney stones Status: Acute (7) Renal colic on left side Status: Acute Comment: secondary to kidney stone Core Measure Documentation - Palliative Care Palliative Care/ Comfort Measures: Not Applicable - Core Measures Any of the following diagnoses?: none Exam - Physical Exam Narrative exam: Not in cardiopulmonary distress. The patient is obese. Vital signs as documented. Head exam is unremarkable. No scleral icterus . Neck is without jugular venous distension, thyromegaly, or carotid bruits. Lungs are clear to auscultation. Cardiac exam reveals regular rate and Rhythm. First and second heart sounds normal. No murmurs, rubs or gallops. Abdominal exam reveals normal bowel sounds, no masses, no organomegaly and no aortic enlargement. Extremities are nonedematous and both femoral and pedal pulses are normal. STORE STOCKER: Alert and oriented 3. No focal weakness. - Constitutional Vitals: Temp Pulse Resp BP Pulse Ox 98.3 F 89 20 114/69 97 06/28/18 05:08 06/28/18 05:08 06/28/18 05:08 06/28/18 05:08 06/28/18 05:08 Plan Activity: no restrictions Weight Bearing Status: Full Weight Bearing Diet: regular Follow up with: PRIMARY MD CHRISSY [Primary Care Provider] - 3-5 Days JUANIS MARTINEZ MD [Staff Physician] - 7 Days Prescriptions: cephALEXin [Keflex] 500 mg PO Q6HR 7 Days #28 capsule
[2018-06-28] MEDS ORDERED: KPHOS 40 MMOL in NACL 0.9% 500 ML 500 ML IV ONE (11:00)
[2018-06-28] MEDS: SENOKOT PO SCH (11:03)
[2018-06-28] MEDS: PHOS-NAK PO SCH ×3 (11:37→15:51)
--- NOTE | 2018-06-28 13:47 | Progress Note ---
Assessment and Plan Cultures: 06/23/2018 blood culture: No growth 06/23/2018 urine culture: MSSA 10K-100K CFU/ml, ESBL Klebsiella <10K 06/23/2018 urine culture: MSSA 10K-100K CFU/ml 06/25/2018 urine culture: 10K-100K yeast. A/P: 48-year-old female with recurrent nephrolithiasis secondary to hypercalcemia admitted with: #1 Sepsis, present on admission secondary to UTI, right-sided hydronephrosis and hydroureter in the setting of ureteral stone and malfunctioning nephrostomy tube: Status post nephrostomy exchange by IR. Patient had sepsis on admission which has now resolved. Blood cultures negative. WBC improved. Initial urine culture grew Staphylococcus aureus as well as Klebsiella pneumoniae, latter with low colony count and hence does not need to be treated. Her urine culture grew Staph alone. Most recent urine culture on 06/25/2018 grew yeast which is likely reflective of colonization. She has received IV vancomycin, Zosyn and Cefepime during the hospitalization. Recs: OK to discharge on oral Keflex 500 mg 4 times a day for 7 more days Follow-up with urology clinic for definitive management of stone Remains at risk of recurrent infections given complicated urologic anatomy and indwelling nephrostomy Please call with questions. Abdoulaye Lyles MD [facility] C: [phone] O: [phone] F: [phone] Subjective Date of service: 06/28/18 Principal diagnosis: UTI Interval history: Denies any fever. Still has pain but improving. Nephrostomy tube draining clear urine. No blood. Objective - Exam Narrative Exam: Physical Exam: Constitutional: Alert, cooperative. No acute distress Head, Ears, Nose: Normocephalic, atraumatic. External ears, nose normal Eyes: Conjunctivae/corneas clear. No icterus. No ptosis. Neck: Supple, no meningeal signs Oral: mucosa moist. No thrush. Cardiovascular: S1, S2 normal. Respiratory: Good air entry, clear to auscultation bilaterally GI: Soft, mild tenderness; bowel sounds normal. No peritoneal signs. R CVA site with nephrostomy tube draining clear urine. Musculoskeletal: No pedal edema, no cyanosis. Skin: No rash or abscess Hem/Lymphatic: No palpable cervical or supraclavicular nodes. No lymphangitis Neurological: Awake, alert, oriented. No gross abnormality - Constitutional Vitals: Vital Signs Temp Pulse Resp BP Pulse Ox 98.3 F 89 20 114/69 97 06/28/18 05:08 06/28/18 05:08 06/28/18 05:08 06/28/18 05:08 06/28/18 05:08 Temperature -Last 24 Hours Temperature 98.3 F Temperature 98.4 F Temperature 98.4 F Temperature 97.5 F Temperature 98.1 F - Labs CBC & Chem 7: 06/24/18 05:00 06/28/18 04:15 Labs: Abnormal lab results 06/28/18 Range/Units 04:15 Potassium 3.3 L (3.6-5.0) mmol/L Chloride 108.1 H (98-107) mmol/L Carbon Dioxide 21 L (22-30) mmol/L BUN 4 L (7-17) mg/dL Creatinine 0.6 L (0.7-1.2) mg/dL Calcium 10.7 H (8.4-10.2) mg/dL Phosphorus 2.00 L (2.5-4.5) mg/dL
[2018-06-28] MEDS: KEFLEX PO SCH ×2 (15:50→18:35)
== END 2018-06-28 19:45 | disposition home or self-care (01) | DRG 698 ==
LOC: ED 02:52 → 3A 07:31 → IMCU 19:39 → 3A 06-27 16:46
PROVIDERS: ADMIT Internal Medicine; ATTEND Internal Medicine
PROC: 0T25X0Z Change Drainage Device in Kidney, External Approach (ICD-10-PCS; principal; 2018-06-23)
PROC: BT14YZZ Fluoroscopy of Kidneys, Ureters and Bladder using Other Contrast (ICD-10-PCS; 2018-06-23)
DX: N99.522 Malfunction of incontinent external stoma of urinary tract (principal); A41.9 Sepsis, unspecified organism; N13.6 Pyonephrosis; E83.52 Hypercalcemia; Y83.8 Other surgical procedures as the cause of abnormal reaction of the patient, or of later complication, without mention of misadventure at the time of the procedure; Y82.8 Other medical devices associated with adverse incidents; E87.6 Hypokalemia; E66.9 Obesity, unspecified; Z91.14 Patient's other noncompliance with medication regimen; Z79.899 Other long term (current) drug therapy; Z68.34 Body mass index [BMI] 34.0-34.9, adult; Z87.442 Personal history of urinary calculi
CPT/HCPCS: 36415; 50432; 71260; 74176; 78070; 80048; 80053; 80202; 81001; 82306; 82652; 83735; 83970; 84100; 85025; 86850; 86900; 86901; 87040; 87076; 87086; 87186; 93005; 93010; 96374; 96375; A9500; C1729; C1751; C1769; J0692; J0696; J1170; J1644; J1940; J1956; J2250; J2270; J2430; J2543; J3010; J3370; J3475; J7030; J7040; J7042; Q0162; Q9967

== ENCOUNTER 2019-05-29 13:44 | Observation (INO) | payer MEDICAID ==
[2019-05-29 14:44] LABS: Basophils % (Auto) 0.7 % (0.0-1.8); Eosinophils % (Auto) 0.8 % (0.0-4.3); Hematocrit 35.4 % (30.3-42.9); Lymphocytes # (Auto) 1.6 K/mm3 (1.2-5.4); Lymphocytes % (Auto) 36.9 % (13.4-35.0); Mean Corpuscular HGB Conc 31 % (30-34); Mean Corpuscular Volume 81 fl (79-97); Monocytes # (Auto) 0.4 K/mm3 (0.0-0.8); Monocytes % (Auto) 10.1 % (0.0-7.3); Platelet Count 353 K/mm3 (140-440); Red Blood Count 4.39 M/mm3 (3.65-5.03); Red Cell Distribution Width 17.4 % (13.2-15.2)
[2019-05-29] MEDS ORDERED: SODIUM CHLORIDE 0.9% 1000 ML 1,000 ML IV ONE (14:54)
--- NOTE | 2019-05-29 14:59 | Emergency Department Report ---
ED Chest Pain HPI - General Chief Complaint: Chest Pain Stated Complaint: CHEST PAIN Time Seen by Provider: 05/29/19 13:54 Source: patient, EMS Mode of arrival: Stretcher Limitations: No Limitations - History of Present Illness Initial Comments: Patient is 49 years old female with no significant past medical history except for kidney stone. Patient brought to the emergency room via EMS for evaluation of substernal chest pain, heaviness in nature with no radiation. Patient stated that she stayed yesterday and today outside in the heat waiting for her paycheck. Patient stated that she start sweating started became dizzy. Patient denied any shortness of breath, fever or chills. No cough. MD Complaint: chest pain -: Last night Onset: during exertion Pain Location: substernal Pain Radiation: none Severity scale (0 -10): 9 Quality: heaviness Consistency: constant - Related Data Previous Rx's Medication Instructions Recorded Last Taken Type traMADol [Ultram] 50 mg PO Q6HR PRN #10 tablet 05/11/18 Unknown Rx Allergies Allergy/AdvReac Type Severity Reaction Status Date / Time No Known Allergies Allergy Verified 12/21/17 16:53 Heart Score - HEART Score History: Slightly suspicious EKG: Normal Age: 45-65 Risk factors: No known risk factors Troponin: < normal limit HEART Score: 1 - Critical Actions Critical Actions: 0-3 pts:0.9-1.7%risk of adverse cardiac event.Candidate for discharge ED Review of Systems ROS: Stated complaint: CHEST PAIN Other details as noted in HPI Comment: All other systems reviewed and negative Constitutional: denies: chills, fever Respiratory: denies: cough, shortness of breath, SOB with exertion, SOB at rest Cardiovascular: chest pain, palpitations Gastrointestinal: denies: abdominal pain, nausea, vomiting Musculoskeletal: denies: back pain Neurological: denies: headache, weakness, numbness, paresthesias, confusion, abnormal gait Psychiatric: anxiety. denies: depression, auditory hallucinations, visual hallucinations, homicidal thoughts, suicidal thoughts ED Past Medical Hx - Past Medical History Previous Medical History?: Yes Hx Hypertension: Yes ("in the past") Hx Congestive Heart Failure: No Hx Diabetes: No Hx Renal Disease: Yes (Renal colic, questionable hydronephrosis) Hx Kidney Stones: Yes (MULTIPLE- DUE TO HIGH BLLD CALCIUM LEVELS) Hx Asthma: No Hx COPD: No Hx HIV: No - Surgical History Past Surgical History?: Yes Additional Surgical History: LASER surgery kidney stone. 1 renal stent placed 05/2018 - Social History Smoking Status: Never Smoker Substance Use Type: None - Medications Home Medications: Home Medications Medication Instructions Recorded Confirmed Last Taken Type traMADol [Ultram] 50 mg PO Q6HR PRN #10 tablet 05/11/18 07/18/18 Unknown Rx ED Physical Exam - General Limitations: No Limitations General appearance: alert, in no apparent distress, anxious - Head Head exam: Present: atraumatic, normocephalic, normal inspection - Eye Eye exam: Present: normal appearance, PERRL - ENT ENT exam: Present: normal exam, normal orophraynx, mucous membranes moist - Neck Neck exam: Present: normal inspection, full ROM. Absent: tenderness, meningismus, lymphadenopathy, thyromegaly - Respiratory Respiratory exam: Present: normal lung sounds bilaterally - Cardiovascular Cardiovascular Exam: Present: regular rate, normal rhythm, normal heart sounds - GI/Abdominal GI/Abdominal exam: Present: soft, normal bowel sounds. Absent: distended, tenderness, guarding, rebound, rigid, organomegaly, mass, bruit, pulsatile mass, hernia - Extremities Exam Extremities exam: Present: normal inspection, full ROM, normal capillary refill - Back Exam Back exam: Present: normal inspection, full ROM. Absent: CVA tenderness (R), CVA tenderness (L), muscle spasm, paraspinal tenderness, vertebral tenderness - Neurological Exam Neurological exam: Present: alert, oriented X3, CN II-XII intact, normal gait, reflexes normal - Psychiatric Psychiatric exam: Present: normal mood - Skin Skin exam: Present: warm, intact, normal color ED Course Vital Signs 05/29/19 05/29/19 14:05 14:44 Temperature 98.3 F Pulse Rate 106 H Respiratory 18 18 Rate Blood Pressure 118/85 [left] O2 Sat by Pulse 100 100 Oximetry ED Medical Decision Making - Lab Data Result diagrams: 05/29/19 14:24 05/29/19 14:24 - EKG Data -: EKG Interpreted by Nj EKG shows normal: sinus rhythm Rate: tachycardia - EKG Data Interpretation: no acute changes - Medical Decision Making Patient is 49 years old female with no significant past medical history except for kidney stone. Patient brought to the emergency room via EMS for evaluation of substernal chest pain, heaviness in nature with no radiation. Patient stated that she stayed yesterday and today outside in the heat waiting for her paycheck. Patient stated that she start sweating started became dizzy. Patient denied any shortness of breath, fever or chills. No cough. Patient found to have a Calcium of 12.3. Patient received a liter of normal saline. EKG is unremarkable. I discussed the patient is , return admitted the patient to medical service. Critical care attestation.: If time is entered above; I have spent that time in minutes in the direct care of this critically ill patient, excluding procedure time. ED Disposition Clinical Impression: Hypercalcemia Disposition: DC09 OP ADMIT IP TO THIS HOSP Is pt being admited?: Yes Condition: Stable
[2019-05-29 15:00] LABS: BUN/Creatinine Ratio 14; Blood Urea Nitrogen 11 mg/dL (7-17); Hemolysis Index 2
[2019-05-29 15:23] LABS: Calcium 12.3 mg/dL (8.4-10.2)
--- NOTE | 2019-05-29 15:41 | XRay Report ---
CHEST 1 VIEW INDICATION / CLINICAL INFORMATION: Chest Pain. COMPARISON: 05/09/2018 FINDINGS: SUPPORT DEVICES: None. HEART / MEDIASTINUM: No significant abnormality. LUNGS / PLEURA: No significant pulmonary or pleural abnormality. No pneumothorax. ADDITIONAL FINDINGS: No significant additional findings. IMPRESSION: No acute pulmonary or pleural abnormality. No change since 05/09/2018 Signer Name: Ty Baez MD FACR Signed: 05/29/2019 3:36 PM Workstation Name: [id number]
[2019-05-29 16:25] LABS: Albumin 4.6 g/dL (3.9-5); Bilirubin,Direct 0.2 mg/dL (0-0.2)
[2019-05-29 19:33] LABS: Amphetamine Screen,Urine PRESUMPTIVE NEGATIVE; Benzodiazepines Screen,Urine PRESUMPTIVE NEGATIVE; Cannabinoid Screen,Urine PRESUMPTIVE NEGATIVE; Cocaine Screen,Urine PRESUMPTIVE NEGATIVE; Methadone Screen,Urine PRESUMPTIVE NEGATIVE; Opiate Screen,Urine PRESUMPTIVE NEGATIVE
--- NOTE | 2019-05-29 21:08 | History and Physical Report ---
History of Present Illness Date of examination: 05/29/19 Date of admission: 05/29/19 15:47 Chief complaint: Chest pain for 1 day History of present illness: 49-year-old -[place] female with a past medical history significant for recurrent hypercalcemia and recurrent kidney stones comes in for substernal chest pain and heaviness. No radiation. Patient also had diaphoresis and became dizzy. No shortness of breath. No palpitations. In the emergency room patient was found to have a high calcium level of more than 12. Patient nephrostomy tube in the past on the right side for renal calculus. Also had recurrent urinary tract infections. No fever or chills this time. No right flank pain. Past Medical History Hypertension Renal Disease: Yes (Renal colic, questionable hydronephrosis) Kidney Stones: Yes (MULTIPLE- DUE TO HIGH BLLD CALCIUM LEVELS) Hypercalcemia Surgical History Past Surgical History?: Yes Additional Surgical History: LASER surgery kidney stone. 1 renal stent placed 05/2018 Social History Smoking Status: Never Smoker Substance Use Type: None Family history Hypertension Medications Home Medications: Home Medications Medication Instructions Recorded Confirmed Last Taken Type traMADol [Ultram] 50 mg PO Q6HR PRN #10 tablet 05/11/18 07/18/18 Unknown Rx Review of Systems ROS: Stated complaint: CHEST PAIN Other details as noted in HPI Comment: All other systems reviewed and negative Constitutional: denies: chills, fever Respiratory: denies: cough, shortness of breath, SOB with exertion, SOB at rest Cardiovascular: chest pain, palpitations Gastrointestinal: denies: abdominal pain, nausea, vomiting Musculoskeletal: denies: back pain Neurological: denies: headache, weakness, numbness, paresthesias, confusion, abnormal gait Psychiatric: anxiety. denies: depression, auditory hallucinations, visual hallucinations, homicidal thoughts, suicidal thoughts Discharge summary from 06/28/2018 Hospitalization Reason for admission: complicated nephrostomy, UTI, hypercalcemia, lung mass Condition: Good Pertinent studies: CT abdomen/pelvis: There is a right nephrostomy tube in proper position. There is moderate right hydronephrosis and hydroureter. There are stones in the right kidney. There is an obstructing stone in the proximal right ureter measuring 11 millimeters. Left kidney and ureter are unremarkable.. There is no bowel obstruction, colitis or enteritis. The appendix is normal.. Uterus and ovaries are unremarkable. There is no ascites, free air, abscess or adenopathy. NM parathyroid scan There is abnormal activity in the superior mediastinum concerning for an ectopic parathyroid adenoma. Consider correlation with CT chest with contrast. CT chest; Approximate 3 cm solid enhancing mass in the anterior mediastinum. Visually this has the appearance a lymph node or a nonspecific mass. This does appear to correlate with the abnormal uptake in the superior mediastinum seen on nuclear medicine parathyroid scan performed 06/26/18. An ectopic parathyroid adenoma should be considered. I cannot entirely exclude other etiologies such as an enlarged lymph node. Please correlate with the patient's clinical presentation and history. Hospital course: 48-year-old female with h/o obstructing kidney stone status post right sided nephrostomy tube placement in 05/23. Patient was discharged on antibiotics following nephrostomy tube placement, but she reports not taking her antibiotics and has not followed up with urology as she was instructed to. The patient's nephrostomy bag broke a few days ago, and she broke off part of the nephrostomy bag. she began to have severe right flank pain and came to ER. She noted to have sepsis with UTI and hypercalcemia, has been placed on iv abx, urology and vascular surgeon consulted with replacement of the nephrostomy tube. Sepsis with UTI; Urine culture grew staph and Klebsiella pneumonia; was treated with IV antibiotics and ID was consulted and recommend keflex at the time discharge. Abdominal pain with obstructed nephrolithiasis, Malfunctioning right nephrostomy tube, Right hydronephrosis due to obstructed stone; patient was treated with iv fluid, pain Mx; consulted and IR did replacement of the nephrostomy tube 06/23/18. Urology recommended further outpt f/u Hypercalcemia; was treated with IV fluids and get better. NM and CT chest was done results as stated above. Discussed with the patient about the chest mass and NM finding told her to have follow up with [place] [facility] and patient verbalized she understood the management plan and said she will make an appointment. F/U with [facility] as an O/P. 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 urology, nephrology and ID cleared the patient for discharge. Obesity; counseled about dietary modification and weight loss. patient was hemodynamically stable at the time of discharge. Appropriate me dication scrips were given. patient's questions and concerns were addressed at the bed side. Medications and Allergies Allergies Allergy/AdvReac Type Severity Reaction Status Date / Time No Known Allergies Allergy Verified 12/21/17 16:53 Home Medications Medication Instructions Recorded Confirmed Last Taken Type No Known Home Medications [No 05/29/19 05/29/19 Unknown History Reported Home Medications] Exam - Constitutional Vitals: Temp Pulse Resp BP Pulse Ox 97.9 F 84 18 128/82 98 05/29/19 19:46 05/29/19 19:46 05/29/19 19:46 05/29/19 19:46 05/29/19 19:46 General appearance: Present: no acute distress, well-nourished - EENT Eyes: Present: PERRL ENT: hearing intact, clear oral mucosa - Neck Neck: Present: supple, normal ROM - Respiratory Respiratory effort: normal Respiratory: bilateral: CTA - Cardiovascular Heart rate: 78 Rhythm: regular Heart Sounds: Present: S1 & S2. Absent: rub, click - Extremities Extremities: no ischemia, pulses intact, pulses symmetrical, No edema Peripheral Pulses: within normal limits - Abdominal General gastrointestinal: Present: soft, non-tender, non-distended, normal bowel sounds Female genitourinary: Present: normal - Rectal Rectal Exam: deferred - Integumentary Integumentary: Present: clear, warm, dry - Musculoskeletal Musculoskeletal: gait normal, strength equal bilaterally - Psychiatric Psychiatric: appropriate mood/affect, intact judgment & insight - Neurologic Neurologic: CNII-XII intact, moves all extremities - Allied Health Allied health notes reviewed: nursing, case management Results - Labs CBC & Chem 7: 05/30/19 04:37 05/30/19 04:37 Labs: Laboratory Last Values WBC 4.4 K/mm3 (4.5-11.0) L 05/29/19 14:24 RBC 4.39 M/mm3 (3.65-5.03) 05/29/19 14:24 Hgb 11.0 gm/dl (10.1-14.3) 05/29/19 14:24 Hct 35.4 % (30.3-42.9) 05/29/19 14:24 MCV 81 fl (79-97) 05/29/19 14:24 MCH 25 pg (28-32) L 05/29/19 14:24 MCHC 31 % (30-34) 05/29/19 14:24 RDW 17.4 % (13.2-15.2) H 05/29/19 14:24 Plt Count 353 K/mm3 (140-440) 05/29/19 14:24 Lymph % (Auto) 36.9 % (13.4-35.0) H 05/29/19 14:24 [place] % (Auto) 10.1 % (0.0-7.3) H 05/29/19 14:24 Eos % (Auto) 0.8 % (0.0-4.3) 05/29/19 14:24 Baso % (Auto) 0.7 % (0.0-1.8) 05/29/19 14:24 Lymph # 1.6 K/mm3 (1.2-5.4) 05/29/19 14:24 [place] # 0.4 K/mm3 (0.0-0.8) 05/29/19 14:24 Eos # 0.0 K/mm3 (0.0-0.4) 05/29/19 14:24 Baso # 0.0 K/mm3 (0.0-0.1) 05/29/19 14:24 Seg Neutrophils % 51.5 % (40.0-70.0) 05/29/19 14:24 Seg Neutrophils # 2.3 K/mm3 (1.8-7.7) 05/29/19 14:24 151.82 ng/mlDDU (0-234) 05/29/19 15:00 Sodium 142 mmol/L (137-145) 05/29/19 14:24 Potassium 3.3 mmol/L (3.6-5.0) L 05/29/19 14:24 Chloride 105.1 mmol/L (98-107) 05/29/19 14:24 Carbon Dioxide 24 mmol/L (22-30) 05/29/19 14:24 16 mmol/L 05/29/19 14:24 BUN 11 mg/dL (7-17) 05/29/19 14:24 0.8 mg/dL (0.7-1.2) 05/29/19 14:24 Estimated GFR > 60 ml/min 05/29/19 14:24 14 % 05/29/19 14:24 Glucose 99 mg/dL (65-100) 05/29/19 14:24 Calcium 12.3 mg/dL (8.4-10.2) H* 05/29/19 14:24 0.90 mg/dL (0.1-1.2) 05/29/19 15:53 0.2 mg/dL (0-0.2) 05/29/19 15:53 0.7 mg/dL 05/29/19 15:53 AST 18 units/L (5-40) 05/29/19 15:53 ALT 17 units/L (7-56) 05/29/19 15:53 180 units/L (35-129) H 05/29/19 15:53 184 units/L (30-135) H 05/29/19 15:00 < 0.010 ng/mL (0.00-0.029) 05/29/19 18:08 7.9 g/dL (6.3-8.2) 05/29/19 15:53 4.6 g/dL (3.9-5) 05/29/19 15:53 1.4 % 05/29/19 15:53 Presumptive negative 05/29/19 Unknown Presumptive negative 05/29/19 Unknown Ur Barbiturates Screen Presumptive negative 05/29/19 Unknown Ur Phencyclidine Scrn Presumptive negative 05/29/19 Unknown Ur Amphetamines Screen Presumptive negative 05/29/19 Unknown U Benzodiazepines Scrn Presumptive negative 05/29/19 Unknown Presumptive negative 05/29/19 Unknown U Marijuana (THC) Screen Presumptive negative 05/29/19 Unknown Disclamer 05/29/19 Unknown Short CBC 05/29/19 05/30/19 Range/Units 14:24 04:37 WBC 4.4 L 6.0 (4.5-11.0) K/mm3 Hgb 11.0 11.1 (10.1-14.3) gm/dl Hct 35.4 34.5 (30.3-42.9) % Plt Count 353 296 (140-440) K/mm3 BMP 05/29/19 05/30/19 14:24 04:37 Sodium 142 143 Potassium 3.3 L 3.3 L Chloride 105.1 107.2 H Carbon Dioxide 24 24 BUN 11 8 Creatinine 0.8 0.7 Glucose 99 100 Calcium 12.3 H* 10.7 H Cardiac Enzymes 05/29/19 05/29/19 05/29/19 Range/Units 14:24 15:00 18:08 Total Creatine Kinase 184 H (30-135) units/L Troponin T < 0.010 < 0.010 (0.00-0.029) ng/mL 05/29/19 05/30/19 Range/Units 22:37 04:37 Total Creatine Kinase (30-135) units/L Troponin T < 0.010 < 0.010 (0.00-0.029) ng/mL Liver Function 05/29/19 05/30/19 Range/Units 15:53 04:37 Total Bilirubin 0.90 0.70 (0.1-1.2) mg/dL Direct Bilirubin 0.2 (0-0.2) mg/dL AST 18 13 (5-40) units/L ALT 17 14 (7-56) units/L Alkaline Phosphatase 180 H 165 H (35-129) units/L Albumin 4.6 4.0 (3.9-5) g/dL - Imaging and Cardiology EKG: report reviewed Chest x-ray: report reviewed (NAF) Assessment and Plan Advance Directives: Yes (Full code) VTE prophylaxis?: Chemical Plan of care discussed with patient/family: Yes - Patient Problems (1) Chest pain Current Visit: Yes Status: Acute Qualifiers: Chest pain type: unspecified Qualified Code(s): R07.9 - Chest pain, unspecified Plan to address problem: Chest pain work up Serial Troponins Stress test in AM (2) Hypercalcemia Current Visit: Yes Status: Acute Plan to address problem: Had Hypercalcemia and w/u in past Has possible Ectopic parathyroid adenoma in superior Mediastinum Check PTH level IV NS and IM Calcitonin Oncology consult for possible IV Bisphosphnates (3) Hypokalemia Current Visit: No Status: Acute Plan to address problem: Supplemented (4) Renal calculi Current Visit: Yes Status: Chronic Plan to address problem: No Flank pain Treat if symptoms happen (5) DVT prophylaxis Current Visit: Yes Status: Acute Plan to address problem: on Lovenox and GI prophylaxis
[2019-05-29] MEDS ORDERED: ONDANSETRON 4 MG/2 ML INJ IV PRN (22:19)
[2019-05-29] MEDS ORDERED: ACETAMINOPHEN 325 MG TAB PO PRN (22:19)
[2019-05-29] MEDS: HYDROmorphone 1 MG/1 ML INJ IV PRN (22:31)
[2019-05-29] MEDS: CALCITONIN,SALMON,SYNTHETIC 400 UNIT/2 ML INJ MDV IM SCH (22:45)
[2019-05-29] MEDS ORDERED: SODIUM CHLORIDE 0.9% 1000 ML 1,000 ML IV SCH (23:00)
[2019-05-30] MEDS: oxyCODONE /ACETAMINOPHEN 5-325MG TAB PO PRN ×2 (00:13→23:00)
[2019-05-30] MEDS: HYDROmorphone 1 MG/1 ML INJ IV PRN ×3 (03:20→20:42)
[2019-05-30 05:09] LABS: Basophils % (Auto) 0.3 % (0.0-1.8); Eosinophils # (Auto) 0.1 K/mm3 (0.0-0.4); Eosinophils % (Auto) 1.2 % (0.0-4.3); Hematocrit 34.5 % (30.3-42.9); Hemoglobin 11.1 gm/dl (10.1-14.3); Lymphocytes # (Auto) 1.7 K/mm3 (1.2-5.4); Lymphocytes % (Auto) 27.6 % (13.4-35.0); Mean Corpuscular HGB Conc 32 % (30-34); Mean Corpuscular Volume 80 fl (79-97); Monocytes # (Auto) 0.7 K/mm3 (0.0-0.8); Monocytes % (Auto) 11.4 % (0.0-7.3); Platelet Count 296 K/mm3 (140-440); Red Blood Count 4.31 M/mm3 (3.65-5.03); Red Cell Distribution Width 17.4 % (13.2-15.2)
[2019-05-30 05:36] LABS: Alanine Aminotransferase 14 units/L (7-56); BUN/Creatinine Ratio 11; Blood Urea Nitrogen 8 mg/dL (7-17); Calcium 10.7 mg/dL (8.4-10.2); Hemolysis Index 1
[2019-05-30] MEDS ORDERED: POTASSIUM CHLORIDE ER 20 MEQ TAB PO ONE (07:00)
--- NOTE | 2019-05-30 08:29 | Event Note ---
Date: 05/30/19 [id number]
--- NOTE | 2019-05-30 08:57 | Progress Note ---
Assessment and Plan Assessment and plan: --Chest pain unspecified Current Visit: Yes Status: Acute Serial cardiac enzymes negative Stress test, cardiology evaluation --h/o Hypercalcemia Current Visit: Yes Status: Acute Had Hypercalcemia and w/u in past Has possible Ectopic parathyroid adenoma in superior Mediastinum IV fluids IM calcitonin, mild improvement Follow Oncology evaluation for possible IV Bisphosphnates -- Hypokalemia Current Visit: No Status: Acute Supplemented, follow levels --H/O Renal calculi Current Visit: Yes Status: Chronic Patient complains of severe abdominal pain Symptomatic management Check CT abdomen and pelvis contrast --DVT prophylaxis Current Visit: Yes Status: Acute on Lovenox Follow stress test, follow CT abdomen and pelvis Possible discharge home tomorrow if about tests are negative An patient is stable History Interval history: Patient seen and examined medical records reviewed Patient admitted with chest pain abdominal pain Schedule for stress test Feels slightly better still complaints of abdominal pain Denies nausea vomiting or diaphoresis Vital signs noted Hospitalist Physical - Constitutional Vitals: Temp Pulse Resp BP Pulse Ox 97.5 F L 89 19 131/80 98 05/30/19 05:40 05/30/19 05:40 05/30/19 05:40 05/30/19 05:40 05/30/19 05:40 General appearance: Present: no acute distress, well-nourished, obese - EENT Eyes: Present: PERRL, EOM intact - Neck Neck: Present: supple, normal ROM - Respiratory Respiratory effort: normal Respiratory: bilateral: diminished, negative: rales, rhonchi, wheezing - Cardiovascular Rhythm: regular Heart Sounds: Present: S1 & S2 - Extremities Extremities: no ischemia, No edema - Abdominal General gastrointestinal: soft, non-tender, non-distended, normal bowel sounds - Integumentary Integumentary: Present: clear, warm - Psychiatric Psychiatric: appropriate mood/affect, cooperative - Neurologic Neurologic: CNII-XII intact, moves all extremities Results - Labs CBC & Chem 7: 05/30/19 04:37 05/30/19 04:37 Labs: Laboratory Last Values WBC 6.0 K/mm3 (4.5-11.0) 05/30/19 04:37 RBC 4.31 M/mm3 (3.65-5.03) 05/30/19 04:37 Hgb 11.1 gm/dl (10.1-14.3) 05/30/19 04:37 Hct 34.5 % (30.3-42.9) 05/30/19 04:37 MCV 80 fl (79-97) 05/30/19 04:37 MCH 26 pg (28-32) L 05/30/19 04:37 MCHC 32 % (30-34) 05/30/19 04:37 RDW 17.4 % (13.2-15.2) H 05/30/19 04:37 Plt Count 296 K/mm3 (140-440) 05/30/19 04:37 Lymph % (Auto) 27.6 % (13.4-35.0) 05/30/19 04:37 [place] % (Auto) 11.4 % (0.0-7.3) H 05/30/19 04:37 Eos % (Auto) 1.2 % (0.0-4.3) 05/30/19 04:37 Baso % (Auto) 0.3 % (0.0-1.8) 05/30/19 04:37 Lymph # 1.7 K/mm3 (1.2-5.4) 05/30/19 04:37 [place] # 0.7 K/mm3 (0.0-0.8) 05/30/19 04:37 Eos # 0.1 K/mm3 (0.0-0.4) 05/30/19 04:37 Baso # 0.0 K/mm3 (0.0-0.1) 05/30/19 04:37 Seg Neutrophils % 59.5 % (40.0-70.0) 05/30/19 04:37 Seg Neutrophils # 3.6 K/mm3 (1.8-7.7) 05/30/19 04:37 151.82 ng/mlDDU (0-234) 05/29/19 15:00 Sodium 143 mmol/L (137-145) 05/30/19 04:37 Potassium 3.3 mmol/L (3.6-5.0) L 05/30/19 04:37 Chloride 107.2 mmol/L (98-107) H 05/30/19 04:37 Carbon Dioxide 24 mmol/L (22-30) 05/30/19 04:37 15 mmol/L 05/30/19 04:37 BUN 8 mg/dL (7-17) 05/30/19 04:37 0.7 mg/dL (0.7-1.2) 05/30/19 04:37 Estimated GFR > 60 ml/min 05/30/19 04:37 11 % 05/30/19 04:37 Glucose 100 mg/dL (65-100) 05/30/19 04:37 Calcium 10.7 mg/dL (8.4-10.2) H 05/30/19 04:37 0.70 mg/dL (0.1-1.2) 05/30/19 04:37 0.2 mg/dL (0-0.2) 05/29/19 15:53 0.7 mg/dL 05/29/19 15:53 AST 13 units/L (5-40) 05/30/19 04:37 ALT 14 units/L (7-56) 05/30/19 04:37 165 units/L (35-129) H 05/30/19 04:37 184 units/L (30-135) H 05/29/19 15:00 < 0.010 ng/mL (0.00-0.029) 05/30/19 04:37 7.1 g/dL (6.3-8.2) 05/30/19 04:37 4.0 g/dL (3.9-5) 05/30/19 04:37 1.3 % 05/30/19 04:37 PTH Intact 470.6 pg/mL (15-65) H 05/30/19 06:18 Presumptive negative 05/29/19 Unknown Presumptive negative 05/29/19 Unknown Ur Barbiturates Screen Presumptive negative 05/29/19 Unknown Ur Phencyclidine Scrn Presumptive negative 05/29/19 Unknown Ur Amphetamines Screen Presumptive negative 05/29/19 Unknown U Benzodiazepines Scrn Presumptive negative 05/29/19 Unknown Presumptive negative 05/29/19 Unknown U Marijuana (THC) Screen Presumptive negative 05/29/19 Unknown Disclamer 05/29/19 Unknown Active Medications - Current Medications Current Medications: Generic Name Dose Route Start Last Admin Trade Name Freq PRN Reason Stop Dose Admin Acetaminophen 650 mg 05/29/19 22:19 Tylenol PO Q4H PRN Pain MILD(1-3)/Fever >100.5/WILSON Calcitonin [place] 250 unit 05/29/19 23:00 05/29/19 22:45 Miacalcin 4 unit/kg (250 unit) 250 unit IM Administration Q12HR [facility] Famotidine 20 mg 05/30/19 10:00 Pepcid IV BID SONIA Hydromorphone HCl 0.5 mg 05/29/19 22:05 05/30/19 03:20 Dilaudid IV 0.5 mg Q3H PRN Administration Pain , Severe (7-10) Sodium Chloride 1,000 mls @ 125 mls/hr 05/29/19 23:00 05/29/19 22:46 Nacl 0.9% 1000 Ml IV 125 mls/hr DIRECT SONIA Administration Ondansetron HCl 4 mg 05/29/19 22:19 Zofran IV Q3H PRN Nausea And Vomiting Oxycodone/Acetaminophen 1 tab 05/29/19 22:19 05/30/19 00:13 Percocet 5/325 PO 1 tab Q6H PRN Administration Pain, Moderate (4-6) Sodium Chloride 10 ml 05/29/19 23:00 05/29/19 22:33 Sodium Chloride Flush Syringe 10 Ml IV 10 ml BID SONIA Administration Sodium Chloride 10 ml 05/29/19 22:19 Sodium Chloride Flush Syringe 10 Ml IV PRN PRN LINE FLUSH
[2019-05-30] MEDS ORDERED: REGADENOSON 0.4 MG/5 ML INJ IV ONE ×2 (09:37→09:38)
--- NOTE | 2019-05-30 11:04 | Consultation ---
History of Present Illness Consult date: 05/30/19 Consult reason: chest pain, syncope History of present illness: 49-year-old -[place] female with a past medical history significant for recurrent hypercalcemia and recurrent kidney stones comes in for substernal chest pain and heaviness without radiation. Patient also had diaphoresis and dizziness. Patient denies shortness of breath, palpitations, orthopnea, pnd, or peripehral edema. Patient also states that she had a syncopal episode just after the onset of chest pain. Patient states she has had these in the past. Patient did not have any warning that she was going to pass out. Past History Past Medical History: hypertension, other (hypercalcemia, kidney stones) Past Surgical History: Other (laser kidney stone removal) Social history: denies: smoking, alcohol abuse, IV drug use Family history: hypertension Medications and Allergies Allergies Allergy/AdvReac Type Severity Reaction Status Date / Time No Known Allergies Allergy Verified 12/21/17 16:53 Home Medications Medication Instructions Recorded Confirmed Last Taken Type No Known Home Medications [No 05/29/19 05/29/19 Unknown History Reported Home Medications] Active Meds: Active Medications Acetaminophen (Tylenol) 650 mg PO Q4H PRN PRN Reason: Pain MILD(1-3)/Fever >100.5/WILSON Calcitonin [place] (Miacalcin) 250 unit 4 unit/kg (250 unit) IM Q12HR SONIA Last Admin: 05/29/19 22:45 Dose: 250 unit Documented by: Famotidine (Pepcid) 20 mg IV BID SONIA Hydromorphone HCl (Dilaudid) 0.5 mg IV Q3H PRN PRN Reason: Pain , Severe (7-10) Last Admin: 05/30/19 03:20 Dose: 0.5 mg Documented by: Sodium Chloride (Nacl 0.9% 1000 Ml) 1,000 mls @ 125 mls/hr IV DIRECT SONIA Last Admin: 05/29/19 22:46 Dose: 125 mls/hr Documented by: Ondansetron HCl (Zofran) 4 mg IV Q3H PRN PRN Reason: Nausea And Vomiting Oxycodone/Acetaminophen (Percocet 5/325) 1 tab PO Q6H PRN PRN Reason: Pain, Moderate (4-6) Last Admin: 05/30/19 00:13 Dose: 1 tab Documented by: Sodium Chloride (Sodium Chloride Flush Syringe 10 Ml) 10 ml IV BID SONIA Last Admin: 05/29/19 22:33 Dose: 10 ml Documented by: Sodium Chloride (Sodium Chloride Flush Syringe 10 Ml) 10 ml IV PRN PRN PRN Reason: LINE FLUSH Review of Systems All systems: negative (pertinent positives mentioned in HPI) Physical Examination Vital Signs Temp Pulse Resp BP Pulse Ox 98.3 F 106 H 18 118/85 100 05/29/19 14:05 05/29/19 14:05 05/29/19 14:05 05/29/19 14:05 05/29/19 14:05 General appearance: no acute distress HEENT: Positive: PERRL Neck: Positive: neck supple Cardiac: Positive: Reg Rate and Rhythm, S1/S2 Lungs: Positive: Normal Exam Neuro: Positive: Grossly Intact Abdomen: Positive: Soft, Active Bowel Sounds Extremities: Present: normal Results 05/30/19 04:37 05/30/19 04:37 Cardiac Enzymes 05/29/19 05/30/19 Range/Units 15:53 04:37 AST 18 13 (5-40) units/L CBC 05/29/19 05/30/19 Range/Units 14:24 04:37 WBC 4.4 L 6.0 (4.5-11.0) K/mm3 RBC 4.39 4.31 (3.65-5.03) M/mm3 Hgb 11.0 11.1 (10.1-14.3) gm/dl Hct 35.4 34.5 (30.3-42.9) % Plt Count 353 296 (140-440) K/mm3 Lymph # 1.6 1.7 (1.2-5.4) K/mm3 [place] # 0.4 0.7 (0.0-0.8) K/mm3 Eos # 0.0 0.1 (0.0-0.4) K/mm3 Baso # 0.0 0.0 (0.0-0.1) K/mm3 Comprehensive Metabolic Panel 05/29/19 05/29/19 05/30/19 Range/Units 14:24 15:53 04:37 Sodium 142 143 (137-145) mmol/L Potassium 3.3 L 3.3 L (3.6-5.0) mmol/L Chloride 105.1 107.2 H (98-107) mmol/L Carbon Dioxide 24 24 (22-30) mmol/L BUN 11 8 (7-17) mg/dL Creatinine 0.8 0.7 (0.7-1.2) mg/dL Glucose 99 100 (65-100) mg/dL Calcium 12.3 H* 10.7 H (8.4-10.2) mg/dL Direct Bilirubin 0.2 (0-0.2) mg/dL Indirect Bilirubin 0.7 mg/dL AST 18 13 (5-40) units/L ALT 17 14 (7-56) units/L Alkaline Phosphatase 180 H 165 H (35-129) units/L Total Protein 7.9 7.1 (6.3-8.2) g/dL Albumin 4.6 4.0 (3.9-5) g/dL Assessment and Plan Chest pain EKG shows sinus rhythm without ischemic changes Serial Troponins negative Stress test today Syncope Recommend TSH and free T4 Check carotid Dopplers Telemetry shows sinus rhythm Check echocardiogram Should the remainder of the patient's workup remained negative consider for outpatient monitor Hypercalcemia Management per primary Hypokalemia Replete as needed Renal calculi Management per primary
[2019-05-30] MEDS: FAMOTIDINE 20 MG/2 ML INJ IV SCH ×2 (11:30→23:00)
[2019-05-30] MEDS: CALCITONIN,SALMON,SYNTHETIC 400 UNIT/2 ML INJ MDV IM SCH (13:03)
--- NOTE | 2019-05-30 13:48 | Vascular Lab Report ---
"DUPLEX DOPPLER ULTRASOUND CAROTID, BILATERAL INDICATION / CLINICAL INFORMATION: Syncope. Dizziness. COMPARISON: None available. FINDINGS: RIGHT CAROTID PLAQUE ESTIMATE: < 50% CCA velocity: 99.6 cm/sec. ICA peak systolic velocity: 97.8 cm/sec. ICA/CCA PSV Ratio: 0.98. Right Vertebral Artery: Antegrade flow. LEFT CAROTID [place] ESTIMATE: < 50% CCA velocity: 62.5 cm/sec. ICA peak systolic velocity: 101.0 cm/sec. ICA/CCA PSV Ratio: 1.62. Left Vertebral Artery: Antegrade flow. IMPRESSION: 1. Right Internal Carotid Artery: Less than 50% diameter stenosis. 2. Left Internal Carotid Artery: Less than 50% diameter stenosis. Velocity criteria are extrapolated from diameter data as defined by the Society of Radiologists in Ul trasound Consensus Conference, Radiology 2003; 229;340-346. Degree of || ICA PSV || Plaque || ICA/CCA Stenosis (%) || (cm/sec) || estimate (%) || PSV Ratio - Normal...............<125..............None.................<2.0 - <50....................<125..............<50....................<2.0 - 50-69................125-230.........>50....................2.0-4.0 - >70 but <100....>230..............>50....................>4.0 - Near...................High, low, .....visible................variable occlusion or none - Total...................None.............visible;................N/A occlusion no lumen Signer Name: Simba Collier MD Signed: 05/30/2019 1:43 PM Workstation Name: [id number]"
--- NOTE | 2019-05-30 14:58 | Event Note ---
Date: 05/30/19 Preliminary stress test report Stress test negative for stress induced ischemia. low risk study. EF 50%
--- NOTE | 2019-05-30 18:25 | Cat Scan Report ---
CT ABDOMEN AND PELVIS WITH IV CONTRAST INDICATION: Abdominal pain,h/o renal stones. COMPARISON: None available. TECHNIQUE: Axial CT images were obtained through the abdomen and pelvis after 100 mL IV contrast. All CT scans a t this location are performed using CT dose reduction for ALARA by means of automated exposure contro l. FINDINGS -- ABDOMEN: Lung Bases: No acute abnormality. Liver: Normal. Gallbladder: Multiple gallstones noted within the gallbladder lumen. Bile Ducts: Normal. Pancreas: Normal. Spleen: Normal. Adrenals: Normal. Right Kidney and Proximal Ureter: Mild cortical scarring of the right kidney.. Left Kidney and Proximal Ureter: Nonobstructive stone measuring 3 mm within the left mid kidney.. Stomach and Bowel: Normal. Lymph Nodes: No significant adenopathy. Aorta: No significant abnormality. IVC: Normal. Additional Findings: None. FINDINGS -- PELVIS: Urinary Bladder and Distal Ureters: Normal. Reproductive Organs: No acute abnormality. Appendix: Normal. Bowel: No acute abnormality. Free Fluid: None. Lymph Nodes: No significant adenopathy. Additional Findings: None. Skeletal System: No acute abnormality. IMPRESSION: Cholelithiasis and moderate stool burden identified throughout the colon. No evidence of bowel obstru ction. Nonobstructive stone within the left mid kidney. No obstructive nephrolithiasis appreciated. Signer Name: Nasim Buitrago MD Signed: 05/30/2019 6:20 PM Workstation Name: [id number]
--- NOTE | 2019-05-30 22:00 | Consultation ---
REFERRED BY: Dr. Arce. REASON FOR CONSULTATION: Hypercalcemia. HISTORY OF PRESENT ILLNESS: I saw the patient, a 49-year-old female in the medical floor. The patient has history of recurrent hypercalcemia and recurrent kidney stones. She follows with urologist and the primary care. She came to the hospital because of substernal chest pain and heaviness, diaphoresis and dizziness. No shortness of breath. Blood calcium was found to be more than 12. The patient has history of nephrostomy in the past for right side renal calculus. I have been asked to evaluate for hypercalcemia, the patient is not sure if parathyroid has been checked. At this time, no headache, no visual disturbances, no ear discharge. PAST MEDICAL HISTORY: Renal stones and hypercalcemia. PAST SURGICAL HISTORY: Laser surgery stone removal, stent placement in May 2018. SOCIAL HISTORY: Nonsmoker. FAMILY HISTORY: Hypertension. HOME MEDICATION: Tramadol. ALLERGIES: None. PHYSICAL EXAMINATION: VITAL SIGNS: Temperature 97.5, pulse 89, respirations 19, BP 131/80. HEENT: No pallor, no icterus. NECK: No neck lymph nodes. HEART: S1, S2. LUNGS: Clear to auscultation. ABDOMEN: Soft. EXTREMITIES: No calf tenderness. NEUROLOGIC: Alert, awake, oriented. LABORATORY DATA: White cell 6, hemoglobin 11, MCV 80, platelet 296. Potassium 3.3, creatinine 0.7, calcium was 12.3 and then 10.7. Albumin was 4.6 and then 4. PTH intact is elevated at 470. ASSESSMENT AND PLAN: 1. Hypercalcemia. 2. Elevated PTH. This is likely secondary to parathyroid abnormality. The patient would need an endocrine followup. Her calcium was elevated and it has improved. 3. History of renal stones, likely secondary to hypercalcemia. 4. History of nephrostomy tube in the past. During this admission on chest x-ray, she was found to have no acute pulmonary or pleural abnormality. The medical note mentions lung mass. I am not sure regarding same. CT was done in June 2018. CT chest showed 3 cm anterior mediastinal lesion. She would need Endocrinology evaluation and if needed a surgical evaluation for the mediastinal lesion. JOB# [id number] NM/NTS
[2019-05-31] MEDS: CALCITONIN,SALMON,SYNTHETIC 400 UNIT/2 ML INJ MDV IM SCH ×2 (01:17→11:18)
[2019-05-31 05:11] VITALS: BP 114/81
--- NOTE | 2019-05-31 07:19 | Hem/Onc Progress Note ---
Assessment and Plan 1. Hypercalcemia. 2. Elevated PTH. This is likely secondary to parathyroid abnormality. The patient would need an endocrine followup. Her calcium was elevated and it has improved. 3. History of renal stones, likely secondary to hypercalcemia. 4. History of nephrostomy tube in the past. During this admission on chest x-ray, she was found to have no acute pulmonary or pleural abnormality. The medical note mentions lung mass. CT was done in June 2018. CT chest showed 3 cm anterior mediastinal lesion. She would need Endocrinology evaluation and if needed a surgical evaluation for the mediastinal lesion. d/w dr almanza - IX for abdo symptoms pt was ref for CT sx eval in past for the mediastinal abn - Patient Problems (1) Hypercalcemia Current Visit: Yes Status: Acute Subjective Date of service: 05/31/19 Principal diagnosis: high calcium Interval history: abdo discomfort Objective - Exam Narrative Exam: Pain - abdo General appearance - comfortable Performance status limited self care Eyes - no icterus, ENT - no bleeding LNs cervical not palpable Neck - no LN Respiratory Normal Breath sounds - CTA CVS S1 S2 + Extremities no calf tenderness General GI Soft Rectal deferred female - deferred Skin warm Musculoskeletal moves extremities Neurologically awake - oriented - Constitutional Vitals: Last Vital Signs Temp 97.9 F 05/31/19 04:49 Pulse 82 05/31/19 04:49 Resp 16 05/31/19 04:49 BP 114/81 05/31/19 04:49 Pulse Ox 94 05/31/19 04:49 - Labs Lab Results: Laboratory Results - last 24 hr 05/30/19 05/30/19 11:16 11:16 TSH 0.311 Free T4 1.51 H Medications & Allergies - Medications Allergies/Adverse Reactions: Allergies No Known Allergies Allergy (Verified 12/21/17 16:53) Home Medications: Home Medications Medication Instructions Recorded Confirmed Last Taken Type No Known Home Medications [No 05/29/19 05/29/19 Unknown History Reported Home Medications] Active Medications: Generic Name Dose Route Start Last Admin Trade Name Freq PRN Reason Stop Dose Admin Acetaminophen 650 mg 05/29/19 22:19 Tylenol PO Q4H PRN Pain MILD(1-3)/Fever >100.5/WILSON Calcitonin [place] 250 unit 05/29/19 23:00 05/31/19 01:17 Miacalcin 4 unit/kg (250 unit) 250 unit IM Administration Q12HR SONIA Famotidine 20 mg 05/30/19 10:00 05/30/19 23:00 Pepcid IV 20 mg BID SONIA Administration Hydromorphone HCl 0.5 mg 05/29/19 22:05 05/30/19 20:42 Dilaudid IV 0.5 mg Q3H PRN Administration Pain , Severe (7-10) Sodium Chloride 1,000 mls @ 125 mls/hr 05/29/19 23:00 05/29/19 22:46 Nacl 0.9% 1000 Ml IV 125 mls/hr DIRECT SONIA Administration Ondansetron HCl 4 mg 05/29/19 22:19 Zofran IV Q3H PRN Nausea And Vomiting Oxycodone/Acetaminophen 1 tab 05/29/19 22:19 05/30/19 23:00 Percocet 5/325 PO 1 tab Q6H PRN Administration Pain, Moderate (4-6) Sodium Chloride 10 ml 05/29/19 23:00 05/30/19 23:00 Sodium Chloride Flush Syringe 10 Ml IV 10 ml BID SONIA Administration Sodium Chloride 10 ml 05/29/19 22:19 Sodium Chloride Flush Syringe 10 Ml IV PRN PRN LINE FLUSH
[2019-05-31] MEDS ORDERED: MAGNESIUM HYDROXIDE (MOM) ORAL LIQD UDC PO NR (08:30)
--- NOTE | 2019-05-31 08:47 | Progress Note ---
Assessment and Plan - Patient Problems (1) Chest pain Current Visit: Yes Status: Acute Qualifiers: Qualified Code(s): R07.9 - Chest pain, unspecified Plan to address problem: Atypical chest pain normal MPI this admission. EF 45-50% by an echocardiogram. No further cardiac workup indicated. Subjective Date of service: 05/31/19 Principal diagnosis: high calcium Interval history: Patient is resting in bed comfortably. No cardiac complaints. Objective Vital Signs Temp Pulse Resp BP Pulse Ox 05/31/19 04:49 97.9 F 82 16 114/81 94 05/30/19 22:50 98.1 F 90 20 123/81 98 05/30/19 17:11 97.9 F 107 H 20 129/77 99 05/30/19 09:46 125/76 05/30/19 09:45 112/77 05/30/19 09:44 112/76 05/30/19 09:42 128/74 05/30/19 09:40 137/71 05/30/19 09:39 139/86 05/30/19 09:38 128/83 05/30/19 09:33 138/81 - Physical Examination General: No Apparent Distress HEENT: Positive: PERRL Neck: Positive: neck supple Cardiac: Positive: Reg Rate and Rhythm Lungs: Positive: Normal Breath Sounds Neuro: Positive: Grossly Intact Abdomen: Positive: Soft, Active Bowel Sounds Extremities: Absent: edema
--- NOTE | 2019-05-31 09:59 | Discharge Summary ---
Providers - Providers Date of Admission: 05/29/19 15:47 Date of discharge: 05/31/19 Attending physician: ANGELICA VALENTINE 05/29/19 22:19 Consult to Physician [CONS] Routine Comment: Consulting Provider: DORETHA WILL Physician Instructions: Reason For Exam: chest pain 05/30/19 06:34 Consult to Physician [CONS] Routine Comment: Consulting Provider: MARILEE SINGH Physician Instructions: Reason For Exam: Hypercalcemia Primary care physician: YOHANA ROBLES Hospitalization Reason for admission: Substernal chest pain Condition: Stable Pertinent studies: CT abdomen/pelvis Stress test Hospital course: 49-year-old -[place] female with a past medical history significant for recurrent hypercalcemia and recurrent kidney stones comes in for substernal chest pain and heaviness. No radiation. Patient also had diaphoresis and became dizzy. No shortness of breath. No palpitations. In the emergency room patient was found to have a high calcium level of more than 12. Patient nephrostomy tube in the past on the right side for renal calculus. Also had recurrent urinary tract infections. No fever or chills this time. No right flank pain. Patient was evaluated by cardiology,Stress test is negative for ischemia Atypcal chest pain ,probably due to GERD. Today patient is comfortable,no new complaints Vital signs stable Physical exam unremarkable Stable at discharge Discharge Diagnosis: --Chest pain unspecified Current Visit: Yes Status: Acute Serial cardiac enzymes negative Stress test negative,EF 55% cardiology evaluated. --GERD:Protonix --h/o Hypercalcemia Current Visit: Yes Status: Acute Had Hypercalcemia and w/u in past Has possible Ectopic parathyroid adenoma in superior Mediastinum IV fluids IM calcitonin, mild improvement Follow Oncology evaluation for possible IV Bisphosphnates -- Hypokalemia Current Visit: No Status: Acute Supplemented, follow levels --H/O Renal calculi Current Visit: Yes Status: Chronic Patient complains of severe abdominal pain Symptomatic management Check CT abdomen and pelvis contrast --DVT prophylaxis Current Visit: Yes Status: Acute on Lovenox Follow stress test, follow CT abdomen and pelvis Possible discharge home tomorrow if about tests are negative An patient is stable Disposition: DC-01 TO HOME OR SELFCARE Time spent for discharge: 32 min Core Measure Documentation - Palliative Care Palliative Care/ Comfort Measures: Not Applicable - Core Measures Any of the following diagnoses?: none Exam - Constitutional Vitals: Temp Pulse Resp BP Pulse Ox 97.9 F 82 16 114/81 94 05/31/19 04:49 05/31/19 04:49 05/31/19 04:49 05/31/19 04:49 05/31/19 04:49 General appearance: Present: no acute distress, well-nourished - EENT Eyes: Present: PERRL, EOM intact - Neck Neck: Present: supple, normal ROM - Respiratory Respiratory effort: normal Respiratory: bilateral: diminished, negative: rales, rhonchi, wheezing - Cardiovascular Rhythm: regular Heart Sounds: Present: S1 & S2 - Extremities Extremities: no ischemia, No edema - Abdominal General gastrointestinal: Present: soft, non-tender, non-distended, normal bowel sounds - Integumentary Integumentary: Present: clear, warm - Musculoskeletal Musculoskeletal: strength equal bilaterally - Psychiatric Psychiatric: appropriate mood/affect, cooperative - Neurologic Neurologic: CNII-XII intact, moves all extremities Plan Activity: no restrictions Diet: regular Additional Instructions: Advised to see private associate financial advisor in 1 week. Patient was advised in the previous admissions [06/2019]to see cardiothoracic surgeon.advised to see CT surgeon For the evaluation of anterior mediastinal mass Follow up with: PRIMARY CARE, [Referring] - 7 Days Prescriptions: Docusate Sodium [Colace] 100 mg PO BID PRN #30 capsule PRN Reason: Constipation Famotidine [Pepcid] 20 mg PO BID #30 tablet
[2019-05-31] MEDS: FAMOTIDINE 20 MG/2 ML INJ IV SCH (11:15)
--- NOTE | 2019-05-31 14:21 | Treadmill Report ---
THALLIUM STRESS TEST LEFT VENTRICLE: Left ventricular chamber size is within normal spread. Perfusion study demonstrates homogeneous uptake of the tracer in all segments, no significant defects identified. Gated analysis demonstrates normal left ventricular systolic function with ejection fraction calculated at 50%. CONCLUSION: Normal myocardial perfusion study. JOB# [id number] CA/NTS
== END 2019-05-31 14:30 | disposition home or self-care (01) ==
LOC: ED 13:44 → INTOOBSV 15:47 → 3A 15:47
PROVIDERS: ADMIT Internal Medicine; ATTEND Internal Medicine
DX: R07.89 Other chest pain (principal); E87.6 Hypokalemia; E83.52 Hypercalcemia; R55 Syncope and collapse; Z87.442 Personal history of urinary calculi
CPT/HCPCS: 36415; 71045; 74177; 78452; 80048; 80053; 80076; 80307; 82310; 82550; 83970; 84439; 84443; 84484; 85025; 85379; 93005; 93010; 93017; 93880; 96361; 96372; 96374; 96375; 96376; 99284; A9502; C8929; G0378; J1170; J2785; J7030; Q9957; Q9967; J0630

== ENCOUNTER 2019-06-25 12:16 | Emergency (ER) | payer MEDICAID ==
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
[2019-06-25] MEDS ORDERED: TORADOL IM ONE (13:49)
[2019-06-25] MEDS ORDERED: ULTRAM PO ONE (13:49)
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
[2019-06-25 15:08] VITALS: BP 120/81
== END 2019-06-25 15:06 | disposition home or self-care (01) ==
LOC: ED 12:16
DX: S20.211A Contusion of right front wall of thorax, initial encounter (principal); I10 Essential (primary) hypertension; Z87.442 Personal history of urinary calculi; Z98.890 Other specified postprocedural states; Z79.899 Other long term (current) drug therapy; Y04.0XXA Assault by unarmed brawl or fight, initial encounter; Y93.89 Activity, other specified; Y92.89 Other specified places as the place of occurrence of the external cause; Y99.8 Other external cause status
CPT/HCPCS: 71111; 93005; 93010; 96372; 99283; J1885

== ENCOUNTER 2020-02-23 17:42 | Inpatient (IN) | payer MEDICAID ==
--- NOTE | 2020-02-23 18:58 | Event Note ---
ED Screening Note ED Screening Note: SOB that began three days ago +cough no fever no diarrhea no n/v states she has clear mucus PMHx none no daily meds has similar sx with fever This initial assessment/diagnostic orders/clinical plan/treatment(s) is/are subject to change based on patients health status, clinical progression and re- assessment by fellow clinical providers in the ED. Further treatment and workup at subsequent clinical providers discretion. Patient/guardian urged not to elope from the ED as their condition may be serious if not clinically assessed and managed. Initial orders include: CXR and labs elevated HR, no fever
[2020-02-23] MEDS ORDERED: SODIUM CHLORIDE 0.9% 1000 ML IV SOLN IV ONE (19:07)
--- NOTE | 2020-02-23 19:44 | XRay Report ---
CHEST 2 VIEWS INDICATION / CLINICAL INFORMATION: SOB, cough. COMPARISON: 06/25/2019 FINDINGS: SUPPORT DEVICES: None. HEART / MEDIASTINUM: Unchanged LUNGS / PLEURA: There are bilateral airspace opacities in the lower lung zones left greater than righ t..No pneumothorax. ADDITIONAL FINDINGS: No significant additional findings. IMPRESSION: There are airspace opacities noted in both lower lung zones bilaterally left greater than right. The appearance is concerning for pneumonia including atypical pneumonia. Signer Name: Tani Davis MD Signed: 02/23/2020 7:39 PM Workstation Name: [id number]
[2020-02-23] MEDS ORDERED: ACETAMINOPHEN 500 MG TAB PO ONE (20:22)
[2020-02-23] MEDS ORDERED: AZITHROMYCIN 500 MG in SODIUM CHLORIDE 0.9% 250ML 250 ML IV ONE (20:23)
--- NOTE | 2020-02-23 20:47 | Emergency Department Report ---
ED Fever HPI - General Chief Complaint: Pain General Stated Complaint: BODY PAIN PUI?: Yes Time Seen by Provider: 02/23/20 18:56 Source: patient Exam Limitations: no limitations - History of Present Illness Initial Comments: 49-year-old female with a past medical history of hypertension and renal stones presents to the hospital complains of generalized body aches, cough, fever for the last 3 days. Patient's is here with similar symptoms and has been exposed to 2 of his coworkers there is that tested positive for coronavirus. Patient works from home. Take [id number] medications without relief. Cough productive of clear sputum. Decreased p.o. intake reported without nausea, vomiting, or diarrhea. Patient complains of mild shortness of breath. She has not been tested for coronavirus. ED Review of Systems ROS: Stated complaint: BODY PAIN Other details as noted in HPI Comment: All other systems reviewed and negative ED Past Medical Hx - Past Medical History Previous Medical History?: Yes Hx Hypertension: Yes ("in the past") Hx Congestive Heart Failure: No Hx Diabetes: No Hx Renal Disease: Yes (Renal colic, questionable hydronephrosis) Hx Kidney Stones: Yes Hx Asthma: No Hx COPD: No Hx HIV: No - Surgical History Past Surgical History?: Yes Additional Surgical History: LASER surgery kidney stone. 1 renal stent placed 05/2018 - Social History Smoking Status: Never Smoker Substance Use Type: None - Medications Home Medications: Home Medications Medication Instructions Recorded Confirmed Last Taken Type Docusate Sodium [Colace] 100 mg PO BID PRN #30 capsule 05/31/19 Unknown Rx Famotidine [Pepcid] 20 mg PO BID #30 tablet 05/31/19 Unknown Rx HYDROcodone/APAP 5-325 [[place] Gap 1 each PO Q6HR PRN #14 tablet 06/25/19 Unknown Rx 5/325] Ibuprofen [Motrin] 800 mg PO Q8HR PRN #30 tablet 06/25/19 Unknown Rx ED Physical Exam - General Limitations: No Limitations - Other Other exam information: General: No acute distress Head: Atraumatic Eyes: normal appearance ENT: Moist mucous membranes Neck: Normal appearance, no midline tenderness Chest: Clear to auscultation bilaterally CV: Tachycardic regular rhythm Abdomen: Soft, normal bowel sounds, nontender, nondistended, no rebound or guarding Back: Normal inspection Extremity: Normal inspection, full range of motion Neuro: Alert O x 3, no facial asymmetry, speech clear, no gross motor sensory deficit Psych: Appropriate behavior Skin: No rash ED Course Vital Signs 02/23/20 02/23/20 02/23/20 17:55 19:01 19:50 Temperature 98.1 F Pulse Rate 68 139 H Respiratory 20 Rate Blood Pressure 132/90 106/79 Blood Pressure [Left] O2 Sat by Pulse 97 93 100 Oximetry 02/23/20 02/23/20 02/23/20 20:00 20:16 20:30 Temperature 99.1 F Pulse Rate 114 H 120 H 120 H Respiratory 19 14 23 Rate Blood Pressure 116/84 90/59 90/59 Blood Pressure 100/44 [Left] O2 Sat by Pulse 99 100 100 Oximetry 02/23/20 02/23/20 02/23/20 20:46 21:00 21:16 Temperature Pulse Rate 118 H 108 H 106 H Respiratory 28 H 30 H 19 Rate Blood Pressure 90/59 90/59 100/44 Blood Pressure 100/44 [Left] O2 Sat by Pulse 97 100 100 Oximetry 02/23/20 02/23/20 02/23/20 21:30 21:46 21:51 Temperature Pulse Rate 109 H Respiratory 33 H 20 Rate Blood Pressure 100/44 100/44 Blood Pressure [Left] O2 Sat by Pulse 89 95 Oximetry 02/23/20 02/23/20 02/23/20 22:00 22:16 22:30 Temperature Pulse Rate 102 H Respiratory 20 Rate Blood Pressure 100/44 136/82 136/82 Blood Pressure 136/82 [Left] O2 Sat by Pulse 94 91 91 Oximetry 02/23/20 02/23/20 02/23/20 22:36 22:46 22:51 Temperature Pulse Rate Respiratory 27 H Rate Blood Pressure 136/82 136/82 Blood Pressure [Left] O2 Sat by Pulse 97 93 Oximetry 02/23/20 02/23/20 02/23/20 23:14 23:15 23:30 Temperature Pulse Rate 100 H 100 H 98 H Respiratory 19 19 30 H Rate Blood Pressure 136/82 102/73 102/73 Blood Pressure [Left] O2 Sat by Pulse 93 93 92 Oximetry 02/23/20 02/23/20 02/24/20 23:35 23:46 00:00 Temperature Pulse Rate 96 H 98 H 95 H Respiratory 27 H 24 28 H Rate Blood Pressure 136/82 102/73 100/68 Blood Pressure [Left] O2 Sat by Pulse 92 95 90 Oximetry 02/24/20 02/24/20 00:16 00:30 Temperature Pulse Rate 92 H 91 H Respiratory 24 31 H Rate Blood Pressure 100/68 100/68 Blood Pressure [Left] O2 Sat by Pulse 90 91 Oximetry - Reevaluation(s) Reevaluation #1: 02/23/20 21:17 as per EULOGIO Herron, lab called with adequate calcium of 15.7 ED Medical Decision Making - Lab Data Result diagrams: 02/23/20 19:30 02/23/20 19:30 Lab Results 02/23/20 02/23/20 02/23/20 Range/Units 19:30 19:30 19:30 WBC 3.8 L (4.5-11.0) K/mm3 RBC 4.77 (3.65-5.03) M/mm3 Hgb 13.7 (10.1-14.3) gm/dl Hct 40.2 (30.3-42.9) % MCV 84 (79-97) fl MCH 29 (28-32) pg MCHC 34 (30-34) % RDW 17.9 H (13.2-15.2) % Plt Count 265 (140-440) K/mm3 Lymph % (Auto) 20.0 (13.4-35.0) % [place] % (Auto) 12.6 H (0.0-7.3) % Eos % (Auto) 0.1 (0.0-4.3) % Baso % (Auto) 0.2 (0.0-1.8) % Lymph # 0.8 L (1.2-5.4) K/mm3 [place] # 0.5 (0.0-0.8) K/mm3 Eos # 0.0 (0.0-0.4) K/mm3 Baso # 0.0 (0.0-0.1) K/mm3 Seg Neutrophils % 67.1 (40.0-70.0) % Seg Neutrophils # 2.5 (1.8-7.7) K/mm3 Sodium 137 (137-145) mmol/L Potassium 4.1 (3.6-5.0) mmol/L Chloride 99.1 (98-107) mmol/L Carbon Dioxide 25 (22-30) mmol/L Anion Gap 17 mmol/L BUN 11 (7-17) mg/dL Creatinine 1.1 (0.7-1.2) mg/dL Estimated GFR > 60 ml/min BUN/Creatinine Ratio 10 % Glucose 120 H (65-100) mg/dL Lactic Acid (0.7-2.0) mmol/L Calcium > 13.0 H* (8.4-10.2) mg/dL Magnesium 1.90 (1.7-2.3) mg/dL Total Bilirubin 0.40 (0.1-1.2) mg/dL AST 36 (5-40) units/L ALT 36 (7-56) units/L Alkaline Phosphatase 116 (35-129) units/L Troponin T < 0.010 (0.00-0.029) ng/mL NT-Pro-B Natriuret Pep < 5 (0-450) pg/mL Total Protein 8.3 H (6.3-8.2) g/dL Albumin 4.0 (3.9-5) g/dL Albumin/Globulin Ratio 0.9 % TSH 0.508 (0.270-4.200) mlU/mL HCG, Qual (Negative) 02/23/20 02/23/20 02/23/20 Range/Units 19:30 20:25 21:03 WBC (4.5-11.0) K/mm3 RBC (3.65-5.03) M/mm3 Hgb (10.1-14.3) gm/dl Hct (30.3-42.9) % MCV (79-97) fl MCH (28-32) pg MCHC (30-34) % RDW (13.2-15.2) % Plt Count (140-440) K/mm3 Lymph % (Auto) (13.4-35.0) % [place] % (Auto) (0.0-7.3) % Eos % (Auto) (0.0-4.3) % Baso % (Auto) (0.0-1.8) % Lymph # (1.2-5.4) K/mm3 [place] # (0.0-0.8) K/mm3 Eos # (0.0-0.4) K/mm3 Baso # (0.0-0.1) K/mm3 Seg Neutrophils % (40.0-70.0) % Seg Neutrophils # (1.8-7.7) K/mm3 Sodium (137-145) mmol/L Potassium (3.6-5.0) mmol/L Chloride (98-107) mmol/L Carbon Dioxide (22-30) mmol/L Anion Gap mmol/L BUN (7-17) mg/dL Creatinine (0.7-1.2) mg/dL Estimated GFR ml/min BUN/Creatinine Ratio % Glucose (65-100) mg/dL Lactic Acid 1.40 1.50 (0.7-2.0) mmol/L Calcium (8.4-10.2) mg/dL Magnesium (1.7-2.3) mg/dL Total Bilirubin (0.1-1.2) mg/dL AST (5-40) units/L ALT (7-56) units/L Alkaline Phosphatase (35-129) units/L Troponin T (0.00-0.029) ng/mL NT-Pro-B Natriuret Pep (0-450) pg/mL Total Protein (6.3-8.2) g/dL Albumin (3.9-5) g/dL Albumin/Globulin Ratio % TSH (0.270-4.200) mlU/mL HCG, Qual Negative (Negative) - EKG Data -: EKG Interpreted by Sc EKG shows normal: sinus rhythm, ST-T waves (no stemi) Rate: tachycardia (102) - Radiology Data Radiology results: report reviewed (cxr: b/l infiltrates. . see report for details) - Medical Decision Making As per respiratory therapist note: Room air walking test done with patient per Dr Candelaria's orders. SPO2 95% resting in bed prior to walking. SPO2 varied 91-96% breathing room air while walking for about 3 minutes. Patient stated that she began to feel weak & dizzy while walking. Md & RN made aware of PUBLICATION MANAGER assessment. Patient desatted less than 93% with ambulation therefore a candidate for admission. She also presents tachycardic with borderline hypotension and has symptomatically dizzy and weak with ambulation. Incidental hypercalcemia also noted. Patient treated with 30 mL/kg bolus of normal saline and IV azithromycin as well as supplemental oxygen and Tylenol. Lactic acid normal Patient will be admitted for suspected COVID pneumonia. Isolation protocol initiated. COVID order set ordered hr and bp improving with IVF Critical Care Time: No Critical care attestation.: If time is entered above; I have spent that time in minutes in the direct care of this critically ill patient, excluding procedure time. ED Disposition Clinical Impression: Suspected COVID-19 virus infection, Bilateral pneumonia, Hypercalcemia, Hypoxia Disposition: OP ADMIT IP TO THIS HOSP Is pt being admited?: Yes Condition: Stable Time of Disposition: 22:23 (Dr Lai/hosp)
[2020-02-23 20:49] LABS: Basophils % (Auto) 0.2 % (0.0-1.8); Eosinophils % (Auto) 0.1 % (0.0-4.3); Hematocrit 40.2 % (30.3-42.9); Hemoglobin 13.7 gm/dl (10.1-14.3); Lymphocytes # (Auto) 0.8 K/mm3 (1.2-5.4); Mean Corpuscular HGB Conc 34 % (30-34); Mean Corpuscular Volume 84 fl (79-97); Monocytes # (Auto) 0.5 K/mm3 (0.0-0.8); Monocytes % (Auto) 12.6 % (0.0-7.3); Platelet Count 265 K/mm3 (140-440); Red Blood Count 4.77 M/mm3 (3.65-5.03); Red Cell Distribution Width 17.9 % (13.2-15.2)
[2020-02-23 21:07] LABS: Alanine Aminotransferase 36 units/L (7-56); BUN/Creatinine Ratio 10; Blood Urea Nitrogen 11 mg/dL (7-17); Hemolysis Index 7
[2020-02-23 21:16] LABS: Calcium > 13.0 mg/dL (8.4-10.2)
[2020-02-23] MEDS ORDERED: ACETAMINOPHEN 325 MG TAB PO PRN (23:18)
[2020-02-23] MEDS ORDERED: ONDANSETRON 4 MG/2 ML INJ IV PRN (23:20)
[2020-02-24 00:12] LABS: Bacteria,Urine 3+ /HPF (Negative); Bilirubin,Urine NEG (Negative); Blood,Urine SM (Negative); Color,Urine Yellow (Yellow); Mucus,Urine 3+ /HPF; Protein,Urine <15 mg/dL mg/dL (Negative)
[2020-02-24 01:42] LABS: C-Reactive Protein 0.3 mg/dL (0.00-1.30)
[2020-02-24] MEDS ORDERED: SODIUM CHLORIDE 0.9% 1000 ML 1,000 ML ONE (03:49)
[2020-02-24] MEDS: SODIUM CHLORIDE 0.9% 1000 ML 1,000 ML IV SCH (04:08)
--- NOTE | 2020-02-24 04:51 | History and Physical Report ---
History of Present Illness Date of examination: 02/23/20 Date of admission: 02/23/20 22:24 Chief complaint: fever, cough and bodyache History of present illness: 49 year old female presenting to Emergency Room with 3 day history of fever, bodyache ,cough and shortness of breath. patient's has similar symtom and was exposed to somebody with covid- 19 at his job, there is no chest pain Past History Past Medical History: hypertension, other (Kidney Stone) Medications and Allergies Allergies Allergy/AdvReac Type Severity Reaction Status Date / Time No Known Allergies Allergy Verified 12/21/17 16:53 Home Medications Medication Instructions Recorded Confirmed Last Taken Type No Known Home Medications [No 02/24/20 02/24/20 Unknown History Reported Home Medications] Active Meds: Active Medications Acetaminophen (Tylenol) 650 mg PO Q4H PRN PRN Reason: Fever >101 Azithromycin 500 mg/ Sodium (Chloride) 250 mls @ 250 mls/hr IV Q24HR SONIA; Protocol Ceftriaxone Sodium (Rocephin/Ns 2 Gm/100 Ml) 2 gm in 100 mls @ 200 mls/hr IV Q24HR SONIA; Protocol Sodium Chloride (Nacl 0.9% 1000 Ml) 1,000 mls @ 125 mls/hr IV DIRECT SONIA Last Admin: 02/24/20 04:08 Dose: 125 mls/hr Documented by: Ondansetron HCl (Zofran) 4 mg IV Q8H PRN PRN Reason: Nausea And Vomiting Review of Systems Constitutional: no weight loss, no weight gain, no fever, no chills, no sweats, no night sweats, no fatigue, no weakness, no malaise, no lethargy Eyes: bilateral: other (NO BILATERAL EYE SYMPTOM) Ears, nose, mouth and throat: no ear pain, no decreased hearing, no nasal congestion, no nasal discharge, no mouth pain, no hoarseness, no sore throat, no swelling in mouth, no headache Breasts: deferred Cardiovascular: shortness of breath, high blood pressure, no chest pain, no palpitations, no syncope, no lightheadedness Respiratory: cough, shortness of breath, no cough with sputum, no hemoptysis, no congestion, no wheezing, no pleurisy, no sleep apnea Gastrointestinal: no abdominal pain, no nausea, no vomiting, no diarrhea, no constipation, no change in bowel habits, no hematemesis, no melena, no hematochezia, no heartburn, no jaundice Genitourinary Female: no Menstruation: no postmenopausal Rectal: no pain, no itching Integumentary: no rash, no pruritis, no redness, no sores, no wounds, no jaundic e, no growths, no bullae, no lesions, no dryness, no color changes, no hirsutism Neurological: no head injury, no weakness, no parathesias, no numbness, no seizures, no syncope, no tremors, no headaches, no migraines, no convulsions, no confusion, no memory loss, no double vision Psychiatric: no anxiety, no sleep disturbances, no insomnia, no hypersomnia, no suicidal ideation, no confusion Endocrine: no cold intolerance, no heat intolerance, no polyphagia, no excessive thirst, no polydipsia, no polyuria, no nocturia, no thyroid mass Hematologic/Lymphatic: no easy bruising, no easy bleeding, no lymphadenopathy, no lymphedema, no thrombophilia Exam - Constitutional Vitals: Temp Pulse Resp BP Pulse Ox 99.1 F 90 27 H 109/68 91 02/23/20 20:00 02/24/20 04:00 02/24/20 04:00 02/24/20 04:00 02/24/20 04:00 General appearance: Present: mild distress - EENT Eyes: Present: PERRL, EOM intact. Absent: scleral icterus, conjunctival injection ENT: hearing intact, clear oral mucosa - Neck Neck: Present: supple, normal ROM, enlarged thyroid - Respiratory Respiratory effort: normal - Cardiovascular Rhythm: regular Heart Sounds: Present: S1 & S2. Absent: gallop, click - Extremities Extremities: no ischemia, No edema Peripheral Pulses: within normal limits - Abdominal General gastrointestinal: Present: soft, non-tender, non-distended, normal bowel sounds. Absent: tender, distended, rigid, hepatomegaly, splenomegaly Female genitourinary: Present: deferred - Rectal Rectal Exam: deferred - Integumentary Integumentary: Present: clear, warm, dry. Absent: erythema, jaundice, clammy - Musculoskeletal Musculoskeletal: strength equal bilaterally, right sided weakness - Psychiatric Psychiatric: appropriate mood/affect HEART Score - HEART Score Troponin: Troponin T < 0.010 ng/mL (0.00-0.029) 02/23/20 19:30 Results - Labs CBC & Chem 7: 02/23/20 19:30 02/23/20 22:59 Labs: Laboratory Last Values WBC 3.8 K/mm3 (4.5-11.0) L 02/23/20:30 RBC 4.77 M/mm3 (3.65-5.03) 02/23/20 19:30 Hgb 13.7 gm/dl (10.1-14.3) 02/23/20 19:30 Hct 40.2 % (30.3-42.9) 02/23/20 19:30 MCV 84 fl (79-97) 02/23/20 19: MCH 29 pg (28-32) 02/23/20: MCHC 34 % (30-34) 02/23/20: RDW 17.9 % (13.2-15.2) H 02/23/20: Plt Count 265 K/mm3 (140-440) 02/23/20 19:30 Lymph % (Auto) 20.0 % (13.4-35.0) 02/23/20 19:30 [place] % (Auto) 12.6 % (0.0-7.3) H 02/23/20: Eos % (Auto) 0.1 % (0.0-4.3) 02/23/20: Baso % (Auto) 0.2 % (0.0-1.8) 02/23/20: Lymph # 0.8 K/mm3 (1.2-5.4) L 02/23/20 19: [place] # 0.5 K/mm3 (0.0-0.8) 02/23/20 19: Eos # 0.0 K/mm3 (0.0-0.4) 02/23/20 19: Baso # 0.0 K/mm3 (0.0-0.1) 02/23/20 19: Seg Neutrophils % 67.1 % (40.0-70.0) 02/23/20 19: Seg Neutrophils # 2.5 K/mm3 (1.8-7.7) 02/23/20: D-Dimer 692.81 ng/mlDDU (0-234) H 02/23/20 22:59 Sodium 137 mmol/L (137-145) 02/23/20 19:30 Potassium 4.1 mmol/L (3.6-5.0) 02/23/20 19:30 Chloride 99.1 mmol/L (98-107) 02/23/20 19:30 Carbon Dioxide 25 mmol/L (22-30) 02/23/20 19:30 Anion Gap 17 mmol/L 02/23/20 19:30 BUN 11 mg/dL (7-17) 02/23/20 19:30 Creatinine 1.1 mg/dL (0.7-1.2) 02/23/20 19:30 Estimated GFR > 60 ml/min 02/23/20 19:30 BUN/Creatinine Ratio 10 % 02/23/20 19:30 Glucose 105 mg/dL (65-100) H 02/23/20 22:59 Lactic Acid 1.50 mmol/L (0.7-2.0) 02/23/20 21:03 Calcium > 13.0 mg/dL (8.4-10.2) H* 02/23/20 19:30 Magnesium 1.90 mg/dL (1.7-2.3) 02/23/20 19:30 Ferritin 49.2 ng/mL (13.0-400.0) 02/23/20 22:59 Total Bilirubin 0.40 mg/dL (0.1-1.2) 02/23/20 19:30 AST 36 units/L (5-40) 02/23/20 19:30 ALT 36 units/L (7-56) 02/23/20 19:30 Alkaline Phosphatase 116 units/L (35-129) 02/23/20 19:30 Lactate Dehydrogenase 114 units/L (91-180) 02/23/20 22:59 Troponin T < 0.010 ng/mL (0.00-0.029) 02/23/20 19:30 C-Reactive Protein 0.30 mg/dL (0.00-1.30) 02/23/20 22:59 NT-Pro-B Natriuret Pep < 5 pg/mL (0-450) 02/23/20 19:30 Total Protein 8.3 g/dL (6.3-8.2) H 02/23/20: Albumin 4.0 g/dL (3.9-5) 02/23/20 Albumin/Globulin Ratio 0.9 % 02/23/20: TSH 0.508 mlU/mL (0.270-4.200) 02/23/20: HCG, Qual Negative (Negative) 02/23/20 20: Urine Color Yellow (Yellow) 02/23/20: Urine Turbidity Slightly-cloudy (Clear) 02/23/20: Urine pH 6.0 (5.0-7.0) 02/23/20 Ur Specific [place] 1.012 (1.003-1.030) 02/23/20 Urine Protein <15 mg/dl mg/dL (Negative) 02/23/20 Urine Glucose (UA) Neg mg/dL (Negative) 02/23/20 Urine Ketones Tr mg/dL (Negative) 02/23/20 Urine Blood Sm (Negative) 02/23/20: Urine Nitrite Neg (Negative) 02/23/20 Urine Bilirubin Neg (Negative) 02/23/20 Urine Urobilinogen 2.0 mg/dL (<2.0) 02/23/20 Ur Leukocyte Esterase Mod (Negative) 02/23/20: Urine WBC (Auto) 38.0 /HPF (0.0-6.0) H 02/23/20 Urine RBC (Auto) 2.0 /HPF (0.0-6.0) 02/23/20 U Epithel Cells (Auto) 1.0 /HPF (0-13.0) 02/23/20 Urine Bacteria (Auto) 3+ /HPF (Negative) 02/23/20 Urine Mucus 3+ /HPF 02/23/20 Microbiology: Microbiology 02/23/20 19:30 Peripheral/Venous Blood Culture - Preliminary Culture in Progress 02/23/20 Peripheral/Venous Blood Culture - Preliminary Culture in Progress [place]/IV: IV Catheter Type [Right INT / Saline Lock Antecubital] Assessment and Plan - Patient Problems (1) Bilateral pneumonia Current Visit: Yes Status: Acute Plan to address problem: 1. I.V Zithromax Antibiotic 2. I.V Rocephine Antibiotic 3. Isolation for COVID 19 testing 4 Tylenol for fever and headache (2) Hypercalcemia Current Visit: Yes Status: Acute Plan to address problem: 1. I.V Normal Saline 2. Mornitore BMP (3) Suspected COVID-19 virus infection Current Visit: Yes Status: Acute Plan to address problem: 1. Covid -19 testing 2. Contact and Droplet isolation
[2020-02-24 05:31] LABS: BUN/Creatinine Ratio 12; Blood Urea Nitrogen 11 mg/dL (7-17); Hemolysis Index 2
[2020-02-24 05:38] LABS: Calcium > 13.0 mg/dL (8.4-10.2)
[2020-02-24] MEDS ORDERED: FUROSEMIDE 40 MG/4 ML INJ IV ONE (05:46)
[2020-02-24] MEDS ORDERED: FUROSEMIDE 40 MG/4 ML INJ ONE (05:50)
--- NOTE | 2020-02-24 09:18 | Progress Note ---
Assessment and Plan Assessment and plan: --COVID-19 PCR positive; Current Visit: Yes Status: Acute Atypical viral pneumonia, DC antibiotics Check inflammatory markers ID following, contact and droplet isolation IV fluids and supportive care Patient not hypoxic, saturates 90 to 92% room air Does not meet criteria for Remdesivir at this point --Isai pneumonia/COVID-19 viral pneumonia Current Visit: Yes Status: Acute DC IV Rocephin and Zosyn , supportive care --History of chronic hypercalcemia Current Visit: Yes Status: Acute Secondary severe dehydration ,IV hydration, monitor calcium levels --Elevated D-dimers Current Visit: Yes Status: Acute CTA chest:Bilateral peripheral pulmonary opacities, multifocal, areas of consolidation and groundglass opacities, Atypical pneumonia 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 In view of COVID-19 positive/elevated D-dimers I did recommend 0.5 mg/kg body weight every 12 hours --DVT prophylaxis Current Visit: Yes Status: Acute Lovenox patient is on Lovenox. SCD Monitor closely and adjust management as needed Plan of care reviewed with patient and her nurse Patient will be transferred to [facility] 3 E. Critical care time 40 minutes 10/26; COVID PCR positive, D-dimers elevated, ID recommend 0.5 mg every 12 hours subcu Lovenox On isolation History Interval history: Patient seen and examined in isolation room this morning Isolation precautions, PPE protocols followed Patient's chart and medications reviewed Patient is COVID positive Elevated D-dimers Patient complains of generalized weakness Vital signs noted Hospitalist Physical - Constitutional Vitals: Temp Pulse Resp BP Pulse Ox 99.2 F 99 H 19 122/77 91 02/24/20 00:30 02/24/20 07:00 02/24/20 07:00 02/24/20 08:00 02/24/20 08:00 General appearance: Present: mild distress, cachectic, disheveled - EENT Eyes: Present: PERRL, EOM intact. Absent: scleral icterus - Neck Neck: Present: supple, normal ROM - Respiratory Respiratory effort: normal Respiratory: bilateral: diminished, rhonchi, negative: rales, wheezing - Cardiovascular Rhythm: regular Heart Sounds: Present: S1 & S2 - Extremities Extremities: no ischemia, No edema - Abdominal General gastrointestinal: soft, non-tender, non-distended, normal bowel sounds - Integumentary Integumentary: Present: clear, warm - Psychiatric Psychiatric: appropriate mood/affect, cooperative - Neurologic Neurologic: moves all extremities HEART Score - HEART Score Troponin: Troponin T < 0.010 ng/mL (0.00-0.029) 02/23/20 19:30 Results - Labs CBC & Chem 7: 02/23/20 19:30 02/24/20 05:08 Labs: Laboratory Last Values WBC 3.8 K/mm3 (4.5-11.0) L 02/23/20 19:30 RBC 4.77 M/mm3 (3.65-5.03) 02/23/20 19:30 Hgb 13.7 gm/dl (10.1-14.3) 02/23/20 19:30 Hct 40.2 % (30.3-42.9) 02/23/20 19:30 MCV 84 fl (79-97) 02/23/20 19:30 MCH 29 pg (28-32) 02/23/20 19:30 MCHC 34 % (30-34) 02/23/20 19:30 RDW 17.9 % (13.2-15.2) H 02/23/20 19:30 Plt Count 265 K/mm3 (140-440) 02/23/20 19:30 Lymph % (Auto) 20.0 % (13.4-35.0) 02/23/20 19:30 [place] % (Auto) 12.6 % (0.0-7.3) H 02/23/20 19:30 Eos % (Auto) 0.1 % (0.0-4.3) 02/23/20 19:30 Baso % (Auto) 0.2 % (0.0-1.8) 02/23/20 19:30 Lymph # 0.8 K/mm3 (1.2-5.4) L 02/23/20 19:30 [place] # 0.5 K/mm3 (0.0-0.8) 02/23/20 19:30 Eos # 0.0 K/mm3 (0.0-0.4) 02/23/20 19:30 Baso # 0.0 K/mm3 (0.0-0.1) 02/23/20 19:30 Seg Neutrophils % 67.1 % (40.0-70.0) 02/23/20 19:30 Seg Neutrophils # 2.5 K/mm3 (1.8-7.7) 02/23/20 19:30 D-Dimer 692.81 ng/mlDDU (0-234) H 02/23/20 22:59 Sodium 140 mmol/L (137-145) 02/24/20 05:08 Potassium 3.8 mmol/L (3.6-5.0) 02/24/20 05:08 Chloride 104.2 mmol/L (98-107) 02/24/20 05:08 Carbon Dioxide 28 mmol/L (22-30) 02/24/20 05:08 Anion Gap 12 mmol/L 02/24/20 05:08 BUN 11 mg/dL (7-17) 02/24/20 05:08 Creatinine 0.9 mg/dL (0.7-1.2) 02/24/20 05:08 Estimated GFR > 60 ml/min 02/24/20 05:08 BUN/Creatinine Ratio 12 % 02/24/20 05:08 Glucose 104 mg/dL (65-100) H 02/24/20 05:08 Lactic Acid 1.50 mmol/L (0.7-2.0) 02/23/20 21:03 Calcium > 13.0 mg/dL (8.4-10.2) H* 02/24/20 05:08 Magnesium 1.90 mg/dL (1.7-2.3) 02/23/20 19:30 Ferritin 49.2 ng/mL (13.0-400.0) 02/23/20 22:59 Total Bilirubin 0.40 mg/dL (0.1-1.2) 02/23/20 19:30 AST 36 units/L (5-40) 02/23/20 19:30 ALT 36 units/L (7-56) 02/23/20 19:30 Alkaline Phosphatase 116 units/L (35-129) 02/23/20 19:30 Lactate Dehydrogenase 114 units/L (91-180) 02/23/20 22:59 Troponin T < 0.010 ng/mL (0.00-0.029) 02/23/20 19:30 C-Reactive Protein 0.30 mg/dL (0.00-1.30) 02/23/20 22:59 NT-Pro-B Natriuret Pep < 5 pg/mL (0-450) 02/23/20: Total Protein 8.3 g/dL (6.3-8.2) H 02/23/20: Albumin 4.0 g/dL (3.9-5) 02/23/20 Albumin/Globulin Ratio 0.9 % 02/23/20: TSH 0.508 mlU/mL (0.270-4.200) 02/23/20: HCG, Qual Negative (Negative) 02/23/20 Urine Color Yellow (Yellow) 02/23/20: Urine Turbidity Slightly-cloudy (Clear) 02/23/20: Urine pH 6.0 (5.0-7.0) 02/23/20 Ur Specific [place] 1.012 (1.003-1.030) 02/23/20 Urine Protein <15 mg/dl mg/dL (Negative) 02/23/20 Urine Glucose (UA) Neg mg/dL (Negative) 02/23/20 Urine Ketones Tr mg/dL (Negative) 02/23/20: Urine Blood Sm (Negative) 02/23/20: Urine Nitrite Neg (Negative) 02/23/20 Urine Bilirubin Neg (Negative) 02/23/20: Urine Urobilinogen 2.0 mg/dL (<2.0) 02/23/20: Ur Leukocyte Esterase Mod (Negative) 02/23/20: Urine WBC (Auto) 38.0 /HPF (0.0-6.0) H 02/23/20: Urine RBC (Auto) 2.0 /HPF (0.0-6.0) 02/23/20: U Epithel Cells (Auto) 1.0 /HPF (0-13.0) 02/23/20 Urine Bacteria (Auto) 3+ /HPF (Negative) 02/23/20 Urine Mucus 3+ /HPF 02/23/20: Microbiology: Microbiology 02/23/20 19: Peripheral/Venous Blood Culture - Preliminary Culture in Progress 02/23/20: Peripheral/Venous Blood Culture - Preliminary Culture in Progress [place]/IV: IV Catheter Type [Right INT / Saline Lock Antecubital] Active Medications - Current Medications Current Medications: Generic Name Dose Route Start Last Admin Trade Name Freq PRN Reason Stop Dose Admin Acetaminophen 650 mg 02/23/20 23:18 Tylenol PO Q4H PRN Fever >101 Azithromycin 500 mg/ Sodium 250 mls @ 250 mls/hr 02/24/20 10:00 Chloride IV Q24HR SONIA Protocol Ceftriaxone Sodium 2 gm in 100 mls @ 200 mls/hr 02/24/20 10:00 Rocephin/Ns 2 Gm/100 Ml IV Q24HR SONIA Protocol Sodium Chloride 1,000 mls @ 125 mls/hr 02/23/20 23:30 02/24/20 04:08 Nacl 0.9% 1000 Ml IV 125 mls/hr DIRECT SONIA Administration Ondansetron HCl 4 mg 02/23/20 23:20 Zofran IV Q8H PRN Nausea And Vomiting
[2020-02-24] MEDS ORDERED: cefTRIAXone/NS 2 GM/100 ML 2 GM/100 ML BAG IV SCH (10:00)
[2020-02-24] MEDS ORDERED: AZITHROMYCIN 500 MG in SODIUM CHLORIDE 0.9% 250ML 250 ML IV SCH (10:00)
--- NOTE | 2020-02-24 12:23 | Consultation ---
History of Present Illness - Reason for Consult Consult date: 02/24/20 COVID rule out Requesting physician: RICHARD SIMPSON - History of Present Illness The patient is a 49-year-old female with renal stones, hypertension admitted to the hospital yesterday with complaints of fever, cough and body aches going on for about 3 days prior to admission. Here, she has had low-grade fevers. Next x-ray showed bilateral infiltrates concerning for atypical pneumonia. COVID-19 PCR is positive. Infectious diseases was consulted for additional evaluation. She feels weak, mild shortness of breath. Review of Systems: reviewed in the chart, unable to obtain directly due to PPE shortage and preservation Past History Past Medical History: hypertension, other (Kidney Stone) Medications and Allergies Allergies Allergy/AdvReac Type Severity Reaction Status Date / Time No Known Allergies Allergy Verified 12/21/17 16:53 Home Medications Medication Instructions Recorded Confirmed Last Taken Type No Known Home Medications [No 02/24/20 02/24/20 Unknown History Reported Home Medications] Active Meds: Active Medications Acetaminophen (Tylenol) 650 mg PO Q4H PRN PRN Reason: Fever >101 Azithromycin 500 mg/ Sodium (Chloride) 250 mls @ 250 mls/hr IV Q24HR SONIA; Protocol Last Admin: 02/24/20 10:38 Dose: 250 mls/hr Documented by: Ceftriaxone Sodium (Rocephin/Ns 2 Gm/100 Ml) 2 gm in 100 mls @ 200 mls/hr IV Q24HR SONIA; Protocol Last Admin: 02/24/20 10:38 Dose: 200 mls/hr Documented by: Sodium Chloride (Nacl 0.9% 1000 Ml) 1,000 mls @ 125 mls/hr IV DIRECT SONIA Last Admin: 02/24/20 04:08 Dose: 125 mls/hr Documented by: Ondansetron HCl (Zofran) 4 mg IV Q8H PRN PRN Reason: Nausea And Vomiting Physical Examination - Physical Exam Narrative exam: Physical Exam (reviewed in chart due to PPE conservation) Constitutional: limited due to PPE conservation strategy Head, Ears, Nose: limited due to PPE conservation strategy Eyes: limited due to PPE conservation strategy Neck: limited due to PPE conservation strategy Oral: limited due to PPE conservation strategy Cardiovascular: limited due to PPE conservation strategy Respiratory: limited due to PPE conservation strategy GI: limited due to PPE conservation strategy Musculoskeletal: limited due to PPE conservation strategy Skin: limited due to PPE conservation strategy Hem/Lymphatic: limited due to PPE conservation strategy Psych: limited due to PPE conservation strategy Neurological: limited due to PPE conservation strategy - Constitutional Vitals: Vital Signs Temp Pulse Resp BP Pulse Ox 99.1 F 103 H 15 124/79 91 02/24/20 09:05 02/24/20 10:00 02/24/20 10:00 02/24/20 08:46 02/24/20 10:00 Temperature -Last 24 Hours Temperature 99.1 F Temperature 99.2 F Temperature 99.1 F Temperature 98.1 F Results - Labs CBC & Chem 7: 02/23/20 19:30 02/24/20 05:08 Labs: Abnormal lab results 02/23/20 02/23/20 02/23/20 Range/Units 19:30 19:30 22:59 WBC 3.8 L (4.5-11.0) K/mm3 RDW 17.9 H (13.2-15.2) % [place] % (Auto) 12.6 H (0.0-7.3) % Lymph # 0.8 L (1.2-5.4) K/mm3 D-Dimer 692.81 H (0-234) ng/mlDDU Glucose 120 H (65-100) mg/dL Calcium > 13.0 H* (8.4-10.2) mg/dL Total Protein 8.3 H (6.3-8.2) g/dL Urine WBC (Auto) (0.0-6.0) /HPF Coronavirus (PCR) (Negative) 02/23/20 02/23/20 02/24/20 Range/Units 22:59 23:27 05:08 WBC (4.5-11.0) K/mm3 RDW (13.2-15.2) % [place] % (Auto) (0.0-7.3) % Lymph # (1.2-5.4) K/mm3 D-Dimer (0-234) ng/mlDDU Glucose 105 H 104 H (65-100) mg/dL Calcium > 13.0 H* (8.4-10.2) mg/dL Total Protein (6.3-8.2) g/dL Urine WBC (Auto) 38.0 H (0.0-6.0) /HPF Coronavirus (PCR) (Negative) 02/24/20 Range/Units 08:04 WBC (4.5-11.0) K/mm3 RDW (13.2-15.2) % [place] % (Auto) (0.0-7.3) % Lymph # (1.2-5.4) K/mm3 D-Dimer (0-234) ng/mlDDU Glucose (65-100) mg/dL Calcium (8.4-10.2) mg/dL Total Protein (6.3-8.2) g/dL Urine WBC (Auto) (0.0-6.0) /HPF Coronavirus (PCR) Positive A (Negative) - Imaging and Cardiology Chest x-ray: report reviewed (b/l infiltrates) Assessment and Plan Cultures: 02/23/2020 blood culture: In process A/P: 49-year-old female with renal stones, hypertension: #Bilateral pneumonia secondary to COVID-19: D-dimer 692, ferritin 49, LDH 114, procalcitonin normal, CRP 0.3. Borderline hypoxia, currently on room air with Sa ts around 90-92%. #Hypercalcemia: management per IMS. #Leucopenia: likely from COVID. Recs: weight based LMWH prophylaxis 0.5 mg/kg q12 hrs due to elevated d-dimer if she develops hypoxia requiring supplemental oxygen, start dexamethasone IV/PO 6 mg daily x 10 days. No benefit in patients not requiring oxygen supplementation or mechanical ventilation trend ferritin, LDH, d-dimer, CRP every 2-3 days for risk stratification and to assess disease progression antibiotics discontinued Abdoulaye Lyles MD, FACP [facility] ([facility]) C: [phone] O: [phone] F: [phone]
--- NOTE | 2020-02-24 13:06 | Cat Scan Report ---
CTA of the chest with 3D Reconstruction Indication: Elevated d-dimer, Covid patient , Technique: TECHNIQUE: Axial CT images were obtained through the chest after injection of 100 cc of Omnipaque 350 IV contrast. 3 plane MIP reconstructions were produced. All CT scans at this location are performed using CT dose reduction for ALARA by means of automated exposure control. COMPARISON: Chest CT dated 06/26/2018 Automatic exposure control was utilized in an attempt to reduce radiation dose. Findings: Pulmonary arteries: The main pulmonary artery and right and left pulmonary artery branches fill satis factorily with contrast. No pulmonary embolus is seen. Lungs: There are bilateral peripheral pulmonary opacities some of which appear more consolidated and some have more of a groundglass appearance. The appearance is characteristic of an atypical pneumonia in correlate with patient's history of Covid Mediastinum: 3.2 x 2 cm mass in the anterior upper mediastinum adjacent to the aortic arch is unchang ed when compared to the prior study from 2018. Aorta: Normal in diameter. No dissection seen within limits of this exam. Impression: No pulmonary embolus is seen There are bilateral peripheral pulmonary opacities. This is multifocal process with some areas of con solidation and groundglass opacities bilaterally. The appearance is characteristic of an atypical pne umonia and correlate with patient's history of Covid. There is a stable solid mass in the upper mediastinum. This is unchanged in size and appearance since June 2018. Signer Name: Tani Davis MD Signed: 02/24/2020 1:02 PM Workstation Name: [id number]
[2020-02-24] MEDS ORDERED: ENOXAPARIN 40 MG/0.4 ML INJ SUB-Q SCH (22:00)
[2020-02-24] MEDS: ENOXAPARIN 40 MG/0.4 ML INJ SUB-Q SCH (22:16)
[2020-02-25] MEDS ORDERED: SODIUM CHLORIDE 0.9% 250ML 250 ML IV ONE (09:00)
--- NOTE | 2020-02-25 09:03 | Progress Note ---
Assessment and Plan Assessment and plan: --COVID-19 PCR positive; Current Visit: Yes Status: Acute Atypical viral pneumonia, DC antibiotics Check inflammatory markers ID following, contact and droplet isolation IV fluids and supportive care Patient not hypoxic, saturates 90 to 92% room air Does not meet criteria for Remdesivir at this point --Isai pneumonia/COVID-19 viral pneumonia Current Visit: Yes Status: Acute DC IV Rocephin and Zosyn , supportive care --History of chronic hypercalcemia Current Visit: Yes Status: Acute Secondary severe dehydration ,IV hydration, monitor calcium levels, fluid bolus as needed --Elevated D-dimers Current Visit: Yes Status: Acute CTA chest:Bilateral peripheral pulmonary opacities, multifocal, areas of consolidation and groundglass opacities, Atypical pneumonia 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 In view of COVID-19 positive/elevated D-dimers ID recommend 0.5 mg/kg body weight every 12 hours --DVT prophylaxis Current Visit: Yes Status: Acute Lovenox patient is on Lovenox. SCD Monitor closely and adjust management as needed Plan of care reviewed with patient and her nurse 10/26; COVID PCR positive, D-dimers elevated, ID recommend 0.5 mg every 12 hours subcu Lovenox 10/27; monitor O2 sats, If hypoxic, ID recommend Remdesivir Disposition; follow ID recommendations, follow complete work-up Discharge when stable History Interval history: Patient seen and examined at the bedside in isolation room COVID-19 positive patient Isolation precautions, PPE protocols followed Patient complains of generalized weakness Alert awake oriented Mild distress Vital signs reviewed Hospitalist Physical - Constitutional Vitals: Temp Pulse Resp BP Pulse Ox 98.7 F 118 H 16 104/61 83 L 02/25/20 04:18 02/25/20 04:18 02/25/20 04:18 02/25/20 04:18 02/25/20 04:18 General appearance: Present: mild distress, cachectic, disheveled - EENT Eyes: Present: PERRL, EOM intact - Neck Neck: Present: supple, normal ROM - Respiratory Respiratory effort: normal Respiratory: bilateral: diminished, rhonchi, negative: rales, wheezing - Cardiovascular Rhythm: regular Heart Sounds: Present: S1 & S2 - Extremities Extremities: no ischemia, No edema - Abdominal General gastrointestinal: soft, non-tender, non-distended, normal bowel sounds - Integumentary Integumentary: Present: clear, warm - Psychiatric Psychiatric: appropriate mood/affect, cooperative - Neurologic Neurologic: CNII-XII intact, moves all extremities HEART Score - HEART Score Troponin: Troponin T < 0.010 ng/mL (0.00-0.029) 02/23/20 19:30 Results - Labs CBC & Chem 7: 02/23/20 19:30 02/24/20 05:08 Labs: Laboratory Last Values WBC 3.8 K/mm3 (4.5-11.0) L 02/23/20 19:30 RBC 4.77 M/mm3 (3.65-5.03) 02/23/20 19:30 Hgb 13.7 gm/dl (10.1-14.3) 02/23/20 19: Hct 40.2 % (30.3-42.9) 02/23/20 19:30 MCV 84 fl (79-97) 02/23/20 19: MCH 29 pg (28-32) 02/23/20 19: MCHC 34 % (30-34) 02/23/20 19:30 RDW 17.9 % (13.2-15.2) H 02/23/20 19:30 Plt Count 265 K/mm3 (140-440) 02/23/20 19:30 Lymph % (Auto) 20.0 % (13.4-35.0) 02/23/20 19:30 [place] % (Auto) 12.6 % (0.0-7.3) H 02/23/20 19:30 Eos % (Auto) 0.1 % (0.0-4.3) 02/23/20 19:30 Baso % (Auto) 0.2 % (0.0-1.8) 02/23/20 19:30 Lymph # 0.8 K/mm3 (1.2-5.4) L 02/23/20 19:30 [place] # 0.5 K/mm3 (0.0-0.8) 02/23/20 19:30 Eos # 0.0 K/mm3 (0.0-0.4) 02/23/20 19:30 Baso # 0.0 K/mm3 (0.0-0.1) 02/23/20 19:30 Seg Neutrophils % 67.1 % (40.0-70.0) 02/23/20 19:30 Seg Neutrophils # 2.5 K/mm3 (1.8-7.7) 02/23/20 19:30 D-Dimer 692.81 ng/mlDDU (0-234) H 02/23/20 22:59 Sodium 140 mmol/L (137-145) 02/24/20 05:08 Potassium 3.8 mmol/L (3.6-5.0) 02/24/20 05:08 Chloride 104.2 mmol/L (98-107) 02/24/20 05:08 Carbon Dioxide 28 mmol/L (22-30) 02/24/20 05:08 Anion Gap 12 mmol/L 02/24/20 05:08 BUN 11 mg/dL (7-17) 02/24/20 05:08 Creatinine 0.9 mg/dL (0.7-1.2) 02/24/20 05:08 Estimated GFR > 60 ml/min 02/24/20 05:08 BUN/Creatinine Ratio 12 % 02/24/20 05:08 Glucose 104 mg/dL (65-100) H 02/24/20 05:08 Lactic Acid 1.50 mmol/L (0.7-2.0) 02/23/20 21:03 Calcium > 13.0 mg/dL (8.4-10.2) H* 02/25/20 04:25 Magnesium 1.90 mg/dL (1.7-2.3) 02/23/20 19:30 Ferritin 55.5 ng/mL (13.0-400.0) 02/24/20 15:53 Total Bilirubin 0.40 mg/dL (0.1-1.2) 02/23/20 19:30 AST 36 units/L (5-40) 02/23/20 19:30 ALT 36 units/L (7-56) 02/23/20 19:30 Alkaline Phosphatase 116 units/L (35-129) 02/23/20 19:30 Lactate Dehydrogenase 114 units/L (91-180) 02/23/20 22:59 Troponin T < 0.010 ng/mL (0.00-0.029) 02/23/20 19:30 C-Reactive Protein 0.30 mg/dL (0.00-1.30) 02/23/20 22:59 NT-Pro-B Natriuret Pep < 5 pg/mL (0-450) 02/23/20 19: Total Protein 8.3 g/dL (6.3-8.2) H 02/23/20 19: Albumin 4.0 g/dL (3.9-5) 02/23/20 19: Albumin/Globulin Ratio 0.9 % 02/23/20 19: Procalcitonin < 0.05 ng/mL (<0.15) 02/23/20 22:59 TSH 0.508 mlU/mL (0.270-4.200) 02/23/20 19: HCG, Qual Negative (Negative) 02/23/20: Urine Color Yellow (Yellow) 02/23/20: Urine Turbidity Slightly-cloudy (Clear) 02/23/20: Urine pH 6.0 (5.0-7.0) 02/23/20: Ur Specific [place] 1.012 (1.003-1.030) 02/23/20: Urine Protein <15 mg/dl mg/dL (Negative) 02/23/20: Urine Glucose (UA) Neg mg/dL (Negative) 02/23/20 Urine Ketones Tr mg/dL (Negative) 02/23/20: Urine Blood Sm (Negative) 02/23/20: Urine Nitrite Neg (Negative) 02/23/20: Urine Bilirubin Neg (Negative) 02/23/20: Urine Urobilinogen 2.0 mg/dL (<2.0) 02/23/20: Ur Leukocyte Esterase Mod (Negative) 02/23/20: Urine WBC (Auto) 38.0 /HPF (0.0-6.0) H 02/23/20: Urine RBC (Auto) 2.0 /HPF (0.0-6.0) 02/23/20: U Epithel Cells (Auto) 1.0 /HPF (0-13.0) 02/23/20: Urine Bacteria (Auto) 3+ /HPF (Negative) 02/23/20 Urine Mucus 3+ /HPF 06/20/20 23:27 Coronavirus (PCR) Positive (Negative) A 02/24/20 08:04 Microbiology: Microbiology 02/23/20 19:30 Peripheral/Venous Blood Culture - Preliminary NO GROWTH AFTER 24 HOURS 02/23/20 19:30 Peripheral/Venous Blood Culture - Preliminary NO GROWTH AFTER 24 HOURS [place]/IV: Voiding Method External Female Catheter IV Catheter Type [Right Wrist] INT / Saline Lock IV Catheter Type [Right INT / Saline Lock Antecubital] Active Medications - Current Medications Current Medications: Generic Name Dose Route Start Last Admin Trade Name Freq PRN Reason Stop Dose Admin Acetaminophen 650 mg 02/23/20 23:18 Tylenol PO Q4H PRN Fever >101 Enoxaparin Sodium 35 mg 02/24/20 22:00 02/24/20 22:16 Enoxaparin SUB-Q 35 mg BID SONIA Administration Sodium Chloride 1,000 mls @ 125 mls/hr 02/23/20 23:30 02/24/20 04:08 Nacl 0.9% 1000 Ml IV 125 mls/hr DIRECT SONIA Administration Sodium Chloride 250 mls @ 999 mls/hr 02/25/20 09:00 Nacl 0.9% 250ml IV 02/25/20 09:15 ONCE ONE Ondansetron HCl 4 mg 02/23/20 23:20 Zofran IV Q8H PRN Nausea And Vomiting Pantoprazole Sodium 40 mg 02/25/20 10:00 Protonix PO QDAY SONIA Zolpidem Tartrate 5 mg 02/25/20 08:58 Ambien PO QHS PRN Sleep
[2020-02-25] MEDS: ENOXAPARIN 40 MG/0.4 ML INJ SUB-Q SCH ×2 (09:10→21:48)
[2020-02-25] MEDS: PANTOPRAZOLE 40 MG TAB PO SCH (09:11)
--- NOTE | 2020-02-25 11:56 | Progress Note ---
Assessment and Plan Cultures: 02/23/2020 blood culture: In process A/P: 49-year-old female with renal stones, hypertension: #Bilateral pneumonia secondary to COVID-19: D-dimer 692, rest of markers normal: ferritin 49, LDH 114, procalcitonin normal, CRP 0.3. #Acute respiratory failure: initially borderline hypoxia, currently on room air with Sats around 90-92%. Now sat down to 82% on 3.5L NC O2 #Hypercalcemia: management per IMS. #Leucopenia: likely from COVID. Recs: start dexamethasone IV/PO 6 mg daily x 10 days due to hypoxemia will consider Remdesiver if hypoxemia is sustained continue weight based LMWH prophylaxis 0.5 mg/kg q12 hrs due to elevated d-dimer trend ferritin, LDH, d-dimer, CRP daily Helen Florez MD [facility] ([facility]) Office [phone] Subjective Date of service: 02/25/20 Principal diagnosis: COVID Interval history: Patient does not feel better, no fever, still cough Objective - Exam Narrative Exam: Physical Exam (reviewed in chart due to PPE conservation) Alert in NAD on NC O2 3.5L Constitutional: limited due to PPE conservation strategy Head, Ears, Nose: limited due to PPE conservation strategy Eyes: limited due to PPE conservation strategy Neck: limited due to PPE conservation strategy Oral: limited due to PPE conservation strategy Cardiovascular: limited due to PPE conservation strategy Respiratory: limited due to PPE conservation strategy GI: limited due to PPE conservation strategy Musculoskeletal: limited due to PPE conservation strategy Skin: limited due to PPE conservation strategy Hem/Lymphatic: limited due to PPE conservation strategy Psych: limited due to PPE conservation strategy Neurological: limited due to PPE conservation strategy - Constitutional Vitals: Vital Signs Temp Pulse Resp BP Pulse Ox 98.7 F 118 H 16 104/61 83 L 02/25/20 04:18 02/25/20 04:18 02/25/20 04:18 02/25/20 04:18 02/25/20 04:18 Temperature -Last 24 Hours Temperature 98.7 F Temperature 98.0 F Temperature 98.3 F Temperature 99.7 F - Labs CBC & Chem 7: 02/23/20 19:30 02/24/20 05:08 Labs: Abnormal lab results 02/25/20 Range/Units 04:25 Calcium > 13.0 H* (8.4-10.2) mg/dL
[2020-02-25] MEDS: SODIUM CHLORIDE 0.9% 1000 ML 1,000 ML IV SCH ×2 (15:10→23:16)
[2020-02-25] MEDS: dexAMETHasone 4 MG/ML VIAL IV SCH (15:11)
[2020-02-25] MEDS: ZOLPIDEM 5 MG TAB PO PRN ×2 (23:14→23:23)
[2020-02-26 05:26] LABS: Basophils % (Auto) 0.1 % (0.0-1.8); Hematocrit 34.6 % (30.3-42.9); Hemoglobin 11.3 gm/dl (10.1-14.3); Lymphocytes # (Auto) 0.5 K/mm3 (1.2-5.4); Lymphocytes % (Auto) 5.6 % (13.4-35.0); Mean Corpuscular HGB Conc 33 % (30-34); Mean Corpuscular Volume 83 fl (79-97); Monocytes # (Auto) 0.4 K/mm3 (0.0-0.8); Monocytes % (Auto) 5.1 % (0.0-7.3); Platelet Count 212 K/mm3 (140-440); Red Blood Count 4.17 M/mm3 (3.65-5.03); Red Cell Distribution Width 17.2 % (13.2-15.2)
[2020-02-26 05:45] LABS: Alanine Aminotransferase 24 units/L (7-56); Albumin 3.5 g/dL (3.9-5); BUN/Creatinine Ratio 10; Blood Urea Nitrogen 9 mg/dL (7-17); Hemolysis Index 7
[2020-02-26 06:04] LABS: Calcium > 13.0 mg/dL (8.4-10.2)
[2020-02-26] MEDS ORDERED: SODIUM CHLORIDE 0.9% 500 ML 500 ML IV ONE (06:11)
--- NOTE | 2020-02-26 09:49 | Progress Note ---
Assessment and Plan /COVID-19 PCR positive; Atypical viral pneumonia, off antibiotics cont to Check inflammatory markers ID following, contact and droplet isolation IV fluids and supportive care /Isai pneumonia/COVID-19 viral pneumonia off abx, cont supportive care Patient became hypoxic and requiring supplemental O2 started on Remdesiver and dexamethasone /Acute respiratory failure: - initially borderline hypoxia, currently on room air with Sats around 90-92%. Now sat down to 82% on 3.5L NC O2 - start dexamethasone IV/PO 6 mg daily x 10 days due to hypoxemia - will consider Remdesiver if hypoxemia is sustained /History of chronic hypercalcemia Secondary severe dehydration ,IV hydration, monitor calcium levels, fluid bolus as needed /Elevated D-dimers CTA chest:Bilateral peripheral pulmonary opacities, multifocal, areas of consolidation and groundglass opacities, Atypical pneumonia 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 In view of COVID-19 positive/elevated D-dimers ID recommend 0.5 mg/kg body weight every 12 hours /DVT prophylaxis Lovenox patient is on Lovenox. SCD Monitor closely and adjust management as needed Plan of care reviewed with patient and her nurse 10/26; COVID PCR positive, D-dimers elevated, ID recommend 0.5 mg every 12 hours subcu Lovenox 10/27; monitor O2 sats, If hypoxic, ID recommend Remdesivir 10/28: remains hypoxic, started on Remdesivir and dexamethasone. consult nephrology for persistent hypercalcemia, will also order PTH level Disposition; follow ID recommendations, follow complete work-up. Discharge when stable Brief History The patient is a 49-year-old female with renal stones, hypertension admitted to the hospital yesterday with complaints of fever, cough and body aches going on for about 3 days prior to admission. chest x-ray showed bilateral infiltrates concerning for atypical pneumonia. COVID-19 PCR is positive. Infectious diseas es was consulted for additional evaluation. Hospitalist Physical General appearance: Present: mild distress, obese - EENT Eyes: Present: PERRL, EOM intact - Neck Neck: Present: supple, normal ROM - Respiratory Respiratory effort: normal Respiratory: bilateral: diminished, rhonchi, negative: rales, wheezing - Cardiovascular Rhythm: regular Heart Sounds: Present: S1 & S2 - Extremities Extremities: no ischemia, No edema - Abdominal General gastrointestinal: soft, non-tender, non-distended, normal bowel sounds - Integumentary Integumentary: Present: clear, warm - Psychiatric Psychiatric: appropriate mood/affect, cooperative - Neurologic Neurologic: CNII-XII intact, moves all extremities Subjective Date of service: 02/26/20 Principal diagnosis: COVID Interval history: Patient seen and examined. Medical records and medication list reviewed. No acute event overnight noted by the RN. Vital reviewed COVID-19 positive patient, Isolation precautions, PPE protocols followed Patient complains of generalized weakness and shortness of breath on minimal ambulation Discussed plan of care at bedside with patient. Objective - Constitutional Vitals: Vital Signs - 12hr 02/26/20 02/26/20 01:00 04:30 Temperature 98.3 F Pulse Rate 120 H Respiratory 18 18 Rate Blood Pressure 123/81 O2 Sat by Pulse 95 88 Oximetry - Labs CBC & Chem 7: 02/26/20 04:50 03/01/20 06:31 Labs: Abnormal lab results 02/25/20 02/25/20 02/26/20 Range/Units 23:58 23:58 04:50 MCH 27 L (28-32) pg RDW 17.2 H (13.2-15.2) % Lymph % (Auto) 5.6 L (13.4-35.0) % Lymph # 0.5 L (1.2-5.4) K/mm3 Seg Neutrophils % 89.2 H (40.0-70.0) % Seg Neutrophils # 7.9 H (1.8-7.7) K/mm3 D-Dimer 669.54 H (0-234) ng/mlDDU Glucose (65-100) mg/dL Calcium (8.4-10.2) mg/dL Magnesium (1.7-2.3) mg/dL Lactate Dehydrogenase 206 H (91-180) units/L C-Reactive Protein 5.00 H (0.00-1.30) mg/dL Albumin (3.9-5) g/dL 02/26/20 Range/Units 04:50 MCH (28-32) pg RDW (13.2-15.2) % Lymph % (Auto) (13.4-35.0) % Lymph # (1.2-5.4) K/mm3 Seg Neutrophils % (40.0-70.0) % Seg Neutrophils # (1.8-7.7) K/mm3 D-Dimer (0-234) ng/mlDDU Glucose 114 H (65-100) mg/dL Calcium > 13.0 H* (8.4-10.2) mg/dL Magnesium 1.60 L (1.7-2.3) mg/dL Lactate Dehydrogenase (91-180) units/L C-Reactive Protein (0.00-1.30) mg/dL Albumin 3.5 L (3.9-5) g/dL HEART Score - HEART Score Troponin: Troponin T < 0.010 ng/mL (0.00-0.029) 02/23/20 19:30
--- NOTE | 2020-02-26 09:56 | Progress Note ---
Assessment and Plan Cultures: 02/23/2020 blood culture: In process A/P: 49-year-old female with renal stones, hypertension: #Fever: from COVID #Bilateral pneumonia secondary to COVID-19: D-dimer 692, rest of markers normal: ferritin 49-->65, LDH 114-->206, CRP 0.3 -->5, ddimer 692-->669. #Acute respiratory failure: initially borderline hypoxia, currently on room air with Sats around 90-92%. Now sat down to 82% on 3.5L NC O2 sats 88% #Hypercalcemia: management per IMS. #Leucopenia: likely from COVID. Recs: continue dexamethasone IV/PO 6 mg daily day 2 of 10 will discuss with pharm to start Remdesiver given sustained hypoxemia continue prophylactic lovenox due to elevated d-dimer daily ferritin, LDH, d-dimer, CRP - ordered will follow. Discussed with pharm Helen Florez MD [facility] ([facility]) Office [phone] Subjective Date of service: 02/26/20 Principal diagnosis: COVID Interval history: Patient does not feel better, fever 102.9, still cough Objective - Exam Narrative Exam: Physical Exam (reviewed in chart due to PPE conservation) Alert in NAD on NC O2 3.5L Constitutional: limited due to PPE conservation strategy Head, Ears, Nose: limited due to PPE conservation strategy Eyes: limited due to PPE conservation strategy Neck: limited due to PPE conservation strategy Oral: limited due to PPE conservation strategy Cardiovascular: limited due to PPE conservation strategy Respiratory: limited due to PPE conservation strategy GI: limited due to PPE conservation strategy Musculoskeletal: limited due to PPE conservation strategy Skin: limited due to PPE conservation strategy Hem/Lymphatic: limited due to PPE conservation strategy Psych: limited due to PPE conservation strategy Neurological: limited due to PPE conservation strategy - Constitutional Vitals: Vital Signs Temp Pulse Resp BP Pulse Ox 98.3 F 120 H 18 123/81 88 02/26/20 04:30 02/26/20 04:30 02/26/20 04:30 02/26/20 04:30 02/26/20 04:30 Temperature -Last 24 Hours Temperature 98.3 F Temperature 97.5 F Temperature 102.9 F Temperature 100.4 F - Labs CBC & Chem 7: 02/26/20 04:50 02/26/20 04:50 Labs: Abnormal lab results 02/25/20 02/25/20 02/26/20 Range/Units 23:58 23:58 04:50 MCH 27 L (28-32) pg RDW 17.2 H (13.2-15.2) % Lymph % (Auto) 5.6 L (13.4-35.0) % Lymph # 0.5 L (1.2-5.4) K/mm3 Seg Neutrophils % 89.2 H (40.0-70.0) % Seg Neutrophils # 7.9 H (1.8-7.7) K/mm3 D-Dimer 669.54 H (0-234) ng/mlDDU Glucose (65-100) mg/dL Calcium (8.4-10.2) mg/dL Magnesium (1.7-2.3) mg/dL Lactate Dehydrogenase 206 H (91-180) units/L C-Reactive Protein 5.00 H (0.00-1.30) mg/dL Albumin (3.9-5) g/dL 02/26/20 Range/Units 04:50 MCH (28-32) pg RDW (13.2-15.2) % Lymph % (Auto) (13.4-35.0) % Lymph # (1.2-5.4) K/mm3 Seg Neutrophils % (40.0-70.0) % Seg Neutrophils # (1.8-7.7) K/mm3 D-Dimer (0-234) ng/mlDDU Glucose 114 H (65-100) mg/dL Calcium > 13.0 H* (8.4-10.2) mg/dL Magnesium 1.60 L (1.7-2.3) mg/dL Lactate Dehydrogenase (91-180) units/L C-Reactive Protein (0.00-1.30) mg/dL Albumin 3.5 L (3.9-5) g/dL
[2020-02-26] MEDS: ENOXAPARIN 40 MG/0.4 ML INJ SUB-Q SCH ×2 (10:35→22:50)
[2020-02-26] MEDS: PANTOPRAZOLE 40 MG TAB PO SCH (10:36)
[2020-02-26] MEDS: dexAMETHasone 4 MG/ML VIAL IV SCH (10:37)
[2020-02-26] MEDS: SODIUM CHLORIDE 0.9% 1000 ML 1,000 ML IV SCH (11:00)
[2020-02-26] MEDS ORDERED: REMDESIVIR 200 MG in SODIUM CHLORIDE 0.9% 250ML 250 ML IV ONE (12:00)
[2020-02-26] MEDS: SODIUM CHLORIDE 0.9% 50 ML IV SCH (13:40)
[2020-02-26] MEDS ORDERED: FUROSEMIDE 40 MG/4 ML INJ IV ONE (14:56)
[2020-02-26] MEDS ORDERED: PAMIDRONATE DISODIUM 90 MG in SODIUM CHLORIDE 0.9% 1000 ML 1,000 ML IV ONE (21:13)
[2020-02-26] MEDS: ZOLPIDEM 5 MG TAB PO PRN (22:49)
[2020-02-27 05:44] LABS: Alanine Aminotransferase 20 units/L (7-56); BUN/Creatinine Ratio 16; Blood Urea Nitrogen 16 mg/dL (7-17); Hemolysis Index 4
[2020-02-27 06:02] LABS: Calcium > 13.0 mg/dL (8.4-10.2)
--- NOTE | 2020-02-27 09:02 | Progress Note ---
Assessment and Plan Cultures: 02/23/2020 blood culture: In process A/P: 49-year-old female with renal stones, hypertension: #Fever: from COVID better #Bilateral pneumonia secondary to COVID-19: D-dimer 692, rest of markers normal: ferritin 49-->65-->71, LDH 114-->206-->140, CRP 0.3 -->5-->5.1, ddimer 692-->669-->985. #Acute respiratory failure: initially borderline hypoxia, currently on room air with Sats around 90-92%. Yesterday sat down to 82% on 3.5L NC O2 sats 88%, now o n 3L sats 95% #Hypercalcemia: management per IMS. #Leucopenia: likely from COVID. Better Recs: continue dexamethasone IV/PO 6 mg daily day 3 of 10 continue Remdesiver day 2 of 5 continue prophylactic lovenox due to elevated d-dimer daily ferritin, LDH, d-dimer, CRP - ordered will follow. Helen Folrez MD [facility] ([facility]) Office [phone] Subjective Date of service: 02/27/20 Principal diagnosis: COVID Interval history: Patient does not feel better, no fever today, on NC 3L Objective - Exam Narrative Exam: Physical Exam (reviewed in chart due to PPE conservation) Alert in NAD on NC O2 3 L Constitutional: limited due to PPE conservation strategy Head, Ears, Nose: limited due to PPE conservation strategy Eyes: limited due to PPE conservation strategy Neck: limited due to PPE conservation strategy Oral: limited due to PPE conservation strategy Cardiovascular: limited due to PPE conservation strategy Respiratory: limited due to PPE conservation strategy GI: limited due to PPE conservation strategy Musculoskeletal: limited due to PPE conservation strategy Skin: limited due to PPE conservation strategy Hem/Lymphatic: limited due to PPE conservation strategy Psych: limited due to PPE conservation strategy Neurological: limited due to PPE conservation strategy - Constitutional Vitals: Vital Signs Temp Pulse Resp BP Pulse Ox 97.5 F L 74 20 143/90 95 02/27/20 05:24 02/27/20 05:24 02/27/20 05:24 02/27/20 05:24 02/27/20 08:45 Temperature -Last 24 Hours Temperature 97.5 F Temperature 98.3 F Temperature 97.8 F Temperature 97.9 F - Labs CBC & Chem 7: 02/26/20 04:50 02/27/20 05:00 Labs: Abnormal lab results 02/26/20 02/26/20 02/27/20 Range/Units 10:13 10:13 05:00 D-Dimer 985.46 H (0-234) ng/mlDDU Glucose 118 H (65-100) mg/dL Calcium > 13.0 H* (8.4-10.2) mg/dL Magnesium (1.7-2.3) mg/dL C-Reactive Protein 5.10 H (0.00-1.30) mg/dL Albumin 3.0 L (3.9-5) g/dL PTH Intact (15-65) pg/mL 02/27/20 02/27/20 Range/Units 05:00 05:00 D-Dimer (0-234) ng/mlDDU Glucose (65-100) mg/dL Calcium (8.4-10.2) mg/dL Magnesium 1.60 L (1.7-2.3) mg/dL C-Reactive Protein (0.00-1.30) mg/dL Albumin (3.9-5) g/dL PTH Intact 675.1 H (15-65) pg/mL
[2020-02-27 09:58] LABS: C-Reactive Protein 5.3 mg/dL (0.00-1.30)
[2020-02-27] MEDS: dexAMETHasone 4 MG/ML VIAL IV SCH (10:58)
[2020-02-27] MEDS: ENOXAPARIN 40 MG/0.4 ML INJ SUB-Q SCH ×2 (10:58→21:53)
[2020-02-27] MEDS: PANTOPRAZOLE 40 MG TAB PO SCH (10:59)
--- NOTE | 2020-02-27 11:11 | Consultation ---
History of Present Illness - Reason for Consult Consult date: 02/27/20 other (Hypercalcemia) - History of Present Illness The patient is a 49 YO female who is known to our service with history si gnificant for Obesity, HTN, Renal stones, Hyperparathyroidism 2/2 mediastinal parathyroid mass and medical non-compliance who presented to [facility] 02/22 with complaints of fever, cough and body aches of 3 days duration. Patient is a poor historian. CXR showed bilateral infiltrates concerning for atypical pneumonia. COVID-19 PCR is positive. Labs significant for Calcium level .13. Nephrology was consulted for further evaluation. Past History Past Medical History: hypertension, other (Kidney Stone) Medications and Allergies Allergies Allergy/AdvReac Type Severity Reaction Status Date / Time No Known Allergies Allergy Verified 12/21/17 16:53 Home Medications Medication Instructions Recorded Confirmed Last Taken Type No Known Home Medications [No 02/24/20 02/24/20 Unknown History Reported Home Medications] Active Meds: Active Medications Acetaminophen (Tylenol) 650 mg PO Q4H PRN PRN Reason: Fever >101 Last Admin: 02/25/20 16:57 Dose: 650 mg Documented by: Dexamethasone (Decadron) 6 mg IV Q24HR SONIA Stop: 03/06/20 13:59 Last Admin: 02/27/20 10:58 Dose: 6 mg Documented by: Enoxaparin Sodium (Enoxaparin) 40 mg SUB-Q BID SONIA Last Admin: 02/27/20 10:58 Dose: 40 mg Documented by: Sodium Chloride (Nacl 0.9% 1000 Ml) 1,000 mls @ 150 mls/hr IV DIRECT SONIA Last Infusion: 02/26/20 19:57 Dose: Infused Documented by: REMDESIVIR 100 mg/ Sodium (Chloride) 250 mls @ 500 mls/hr IV Q24H SONIA Stop: 03/01/20 12:29 Sodium Chloride (Nacl 0.9%) 50 mls @ 200 mls/hr IV Q24H SONIA Stop: 03/01/20 13:14 Last Infusion: 02/27/20 05:57 Dose: Infused Documented by: Ondansetron HCl (Zofran) 4 mg IV Q8H PRN PRN Reason: Nausea And Vomiting Last Admin: 02/26/20 22:49 Dose: 4 mg Documented by: Pantoprazole Sodium (Protonix) 40 mg PO QDAY [facility] Last Admin: 02/27/20 10:59 Dose: 40 mg Documented by: Zolpidem Tartrate (Ambien) 5 mg PO QHS PRN PRN Reason: Sleep Last Admin: 02/26/20 22:49 Dose: 5 mg Documented by: Review of Systems ROS unobtainable: due to mental status Exam - Vital Signs Vital signs: Vital Signs Temp Pulse Resp BP Pulse Ox 98.1 F 68 20 132/90 97 02/23/20 17:55 02/23/20 17:55 02/23/20 17:55 02/23/20 17:55 02/23/20 17:55 - General Appearance General appearance: well-developed, well-nourished, appears stated age, obese, other (no distress) EENT: ATNC, PERRL, mucous membranes moist, hearing intact, vision intact Neck: Present: neck supple, trachea midline Respiratory: Clear to Ascultation Heart: regular, S1S2, no murmurs Gastrointestinal: Present: normoactive bowel sounds, obese. Absent: tenderness, distended Integumentary: no rash, warm and dry Neurologic: no focal deficit, no asterixis, confused, disoriented Musculoskeletal: Present: other (no edema) Results - Lab Results 02/26/20 04:50 02/27/20 05:00 Most recent lab results Calcium > 13.0 mg/dL (8.4-10.2) H* 02/27/20 05:00 Phosphorus 2.50 mg/dL (2.5-4.5) 02/27/20 05:00 Magnesium 1.60 mg/dL (1.7-2.3) L 02/27/20 05:00 Assessment and Plan 1. Hypercalcemia: Associated with elevated PTH. 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 CT chest with IV contrast confirms mass in the mediastinum. Patient was recommended to see [place] [facility]. S/p IV Pamidronate. Started on Sensipar. Monitor Calcium level. 2. Isai pneumonia/COVID-19 viral pneumonia: Followed by ID. 3. Acute hypoxic respiratory failure: Initially required NC O2. Currently on room air. 4. Hypertension. 5. Medical non-compliance.
[2020-02-27] MEDS ORDERED: MAGNESIUM SULFATE 2 GM/50 ML BAG IV ONE (15:04)
[2020-02-27] MEDS: REMDESIVIR 100 MG in SODIUM CHLORIDE 0.9% 250ML 250 ML IV SCH (15:21)
[2020-02-27] MEDS: SODIUM CHLORIDE 0.9% 50 ML IV SCH (16:05)
[2020-02-27] MEDS: CINACALCET 30 MG TAB PO SCH (16:17)
--- NOTE | 2020-02-27 16:32 | Progress Note ---
Assessment and Plan /COVID-19 PCR positive; Atypical viral pneumonia, off antibiotics cont to Check inflammatory markers ID following, contact and droplet isolation IV fluids and supportive care Continue dexamethasone and Remdesiver /B/L pneumonia/COVID-19 viral pneumonia off abx, cont supportive care Patient became hypoxic and requiring supplemental O2 started on Remdesiver and dexamethasone /Acute respiratory failure: - initially borderline hypoxia, currently on room air with Sats around 90-92%. 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 need outpt f/u In view of COVID-19 positive/elevated D-dimers ID recommend heparin 0.5 mg/kg body weight every 12 hours /DVT prophylaxis Lovenox patient is on Lovenox. SCD Monitor closely and adjust management as needed Plan of care reviewed with patient and her nurse 10/26; COVID PCR positive, D-dimers elevated, ID recommend 0.5 mg every 12 hours subcu Lovenox 10/27; monitor O2 sats, If hypoxic, ID recommend Remdesivir 10/28: remains hypoxic, started on Remdesivir. consult nephrology for persistent hypercalcemia, will also order PTH level 10/29; continue dexamethasone IV/PO 6 mg daily , continue Remdesiver day 2 of 5. Patient doing slightly better. On 5L O2, wean off as tolerated Disposition; follow ID recommendations, follow complete work-up. Discharge when stable Brief History The patient is a 49-year-old female with renal stones, hypertension admitted to the hospital yesterday with complaints of fever, cough and body aches going on for about 3 days prior to admission. chest x-ray showed bilateral infiltrates concerning for atypical pneumonia. COVID-19 PCR is positive. Infectious diseases was consulted for additional evaluation. Hospitalist Physical General appearance: Present: mild distress, obese - EENT Eyes: Present: PERRL, EOM intact - Neck Neck: Present: supple, normal ROM - Respiratory Respiratory effort: normal Respiratory: bilateral: diminished, rhonchi, negative: rales, wheezing - Cardiovascular Rhythm: regular Heart Sounds: Present: S1 & S2 - Extremities Extremities: no ischemia, No edema - Abdominal General gastrointestinal: soft, non-tender, non-distended, normal bowel sounds - Integumentary Integumentary: Present: clear, warm - Psychiatric Psychiatric: appropriate mood/affect, cooperative - Neurologic Neurologic: CNII-XII intact, moves all extremities Subjective Date of service: 02/27/20 Principal diagnosis: COVID Interval history: Patient seen and examined. Medical records and medication list reviewed. No acute event overnight noted by the RN. Vital reviewed COVID-19 positive patient, Isolation precautions, PPE protocols followed Patient complains of generalized weakness and shortness of breath on minimal ambulation Discussed plan of care at bedside with patient. Objective - Constitutional Vitals: Vital Signs - 12hr 02/27/20 02/27/20 02/27/20 05:24 08:45 11:19 Temperature 97.5 F L 97.6 F Pulse Rate 74 86 Respiratory 20 24 Rate Blood Pressure 143/90 115/77 O2 Sat by Pulse 97 95 99 Oximetry - Labs CBC & Chem 7: 02/26/20 04:50 03/01/20 06:31 Labs: Abnormal lab results 02/27/20 02/27/20 02/27/20 Range/Units 05:00 05:00 05:00 D-Dimer (0-234) ng/mlDDU Glucose 118 H (65-100) mg/dL Calcium > 13.0 H* (8.4-10.2) mg/dL Magnesium 1.60 L (1.7-2.3) mg/dL C-Reactive Protein (0.00-1.30) mg/dL Albumin 3.0 L (3.9-5) g/dL PTH Intact 675.1 H (15-65) pg/mL 02/27/20 02/27/20 Range/Units 09:05 09:05 D-Dimer 869.18 H (0-234) ng/mlDDU Glucose (65-100) mg/dL Calcium (8.4-10.2) mg/dL Magnesium (1.7-2.3) mg/dL C-Reactive Protein 5.30 H (0.00-1.30) mg/dL Albumin (3.9-5) g/dL PTH Intact (15-65) pg/mL HEART Score - HEART Score Troponin: Troponin T < 0.010 ng/mL (0.00-0.029) 02/23/20 19:30
[2020-02-27] MEDS: SODIUM CHLORIDE 0.9% 1000 ML 1,000 ML IV SCH (21:53)
[2020-02-27] MEDS: ZOLPIDEM 5 MG TAB PO PRN (21:53)
[2020-02-28 06:05] LABS: Albumin 2.8 g/dL (3.9-5); BUN/Creatinine Ratio 19; Blood Urea Nitrogen 21 mg/dL (7-17); Hemolysis Index 99
[2020-02-28 06:33] LABS: Alanine Aminotransferase 18 units/L (7-56)
[2020-02-28 06:35] LABS: Calcium > 13.0 mg/dL (8.4-10.2)
--- NOTE | 2020-02-28 08:22 | Progress Note ---
Assessment and Plan 1. Hypercalcemia: Associated with elevated PTH. 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 CT chest with IV contrast confirms mass in the mediastinum. Patient was recommended to see [place] [facility]. S/p IV Pamidronate. Continue Sensipar. Monitor Calcium level. 2. Isai pneumonia/COVID-19 viral pneumonia: Followed by ID. 3. Acute hypoxic respiratory failure: 2/2 pneumonia. NC O2 as needed. 4. Hypertension. 5. Medical non-compliance. - Subjective: Patient was seen and examined at the bedside. No acute events overnight. - General Appearance General appearance: well-developed, well-nourished, appears stated age, obese, no distress HEENT: ATNC, RENETTA, mucous membranes moist, hearing intact, vision intact Neck: neck supple, trachea midline Respiratory: Clear to Ascultation Heart: regular, S1S2, no murmur Gastrointestinal: Soft, normoactive bowel sounds, not tender, not distended Integumentary: no rash, warm and dry Neurologic: no focal deficit, no asterixis Ext: no edema Subjective Date of service: 02/28/20 Principal diagnosis: COVID Objective - Vital Signs Vital signs: Vital Signs - 12hr 02/27/20 02/27/20 02/28/20 20:24 22:38 05:18 Temperature 98.8 F 97.5 F L Pulse Rate 89 76 Respiratory 18 18 Rate Blood Pressure 137/87 154/86 O2 Sat by Pulse 97 96 92 Oximetry - Lab 02/26/20 04:50 02/28/20 05:16 Most recent lab results Calcium > 13.0 mg/dL (8.4-10.2) H* 02/28/20 05:16 Phosphorus 2.50 mg/dL (2.5-4.5) 02/27/20 05:00 Magnesium 1.60 mg/dL (1.7-2.3) L 02/27/20 05:00 Medications & Allergies - Medications Allergies/Adverse Reactions: Allergies No Known Allergies Allergy (Verified 12/21/17 16:53) Home Medications: Home Medications Medication Instructions Recorded Confirmed Last Taken Type No Known Home Medications [No 02/24/20 02/24/20 Unknown History Reported Home Medications] Active Medications: Generic Name Dose Route Start Last Admin Trade Name Freq PRN Reason Stop Dose Admin Acetaminophen 650 mg 02/23/20 23:18 02/25/20 16:57 Tylenol PO 650 mg Q4H PRN Administration Fever >101 Cinacalcet 60 mg 02/27/20 16:00 02/27/20 16:17 Sensipar PO 60 mg QDAY SONIA Administration Dexamethasone 6 mg 02/25/20 14:00 02/27/20 10:58 Decadron IV 03/06/20 13:59 6 mg Q24HR SONIA Administration Enoxaparin Sodium 40 mg 02/25/20 22:00 02/27/20 21:53 Enoxaparin SUB-Q 40 mg BID SONIA Administration Sodium Chloride 1,000 mls @ 150 mls/hr 02/23/20 23:30 02/27/20 21:53 Nacl 0.9% 1000 Ml IV 125 mls/hr DIRECT SONIA Administration REMDESIVIR 100 mg/ Sodium 250 mls @ 500 mls/hr 02/27/20 12:00 02/27/20 16:00 Chloride IV 03/01/20 12:29 Infused Q24H SONIA Infusion Sodium Chloride 50 mls @ 200 mls/hr 02/26/20 13:00 02/27/20 16:40 Nacl 0.9% IV 03/01/20 13:14 Infused Q24H SONIA Infusion Ondansetron HCl 4 mg 02/23/20 23:20 02/26/20 22:49 Zofran IV 4 mg Q8H PRN Administration Nausea And Vomiting Pantoprazole Sodium 40 mg 02/25/20 10:00 02/27/20 10:59 Protonix PO 40 mg QDAY SNOIA Administration Zolpidem Tartrate 5 mg 02/25/20 22:00 02/27/20 21:53 Ambien PO 5 mg QHS PRN Administration Sleep
[2020-02-28] MEDS: dexAMETHasone 4 MG/ML VIAL IV SCH (10:32)
[2020-02-28] MEDS: ENOXAPARIN 40 MG/0.4 ML INJ SUB-Q SCH ×2 (10:32→23:28)
[2020-02-28] MEDS: CINACALCET 30 MG TAB PO SCH (10:33)
[2020-02-28] MEDS: PANTOPRAZOLE 40 MG TAB PO SCH (10:33)
--- NOTE | 2020-02-28 11:45 | Progress Note ---
Assessment and Plan Cultures: 02/23/2020 blood culture: In process A/P: 49-year-old female with renal stones, hypertension: #Fever: from COVID better #Bilateral pneumonia secondary to COVID-19: D-dimer 692-->869, rest of markers normal: ferritin 49-->65-->71, LDH 114-->206-->140, CRP 0.3 -->5-->5.1, ddimer 692-->669-->985. #Acute respiratory failure: now on 2L sats 92% #Hypercalcemia: management per IMS. #Leucopenia: likely from COVID. Better #Mediastinal mass ? Recs: continue dexamethasone IV/PO 6 mg daily day 4 of 10 continue Remdesiver day 3 of 5 continue prophylactic lovenox due to elevated d-dimer daily ferritin, LDH, d-dimer, CRP - ordered will follow. Helen Florez MD [facility] ([facility]) Office [phone] Subjective Date of service: 02/28/20 Principal diagnosis: COVID Interval history: Patient still on NC Objective - Exam Narrative Exam: Physical Exam (reviewed in chart due to PPE conservation) Alert in NAD on NC O2 3 L Constitutional: limited due to PPE conservation strategy Head, Ears, Nose: limited due to PPE conservation strategy Eyes: limited due to PPE conservation strategy Neck: limited due to PPE conservation strategy Oral: limited due to PPE conservation strategy Cardiovascular: limited due to PPE conservation strategy Respiratory: limited due to PPE conservation strategy GI: limited due to PPE conservation strategy Musculoskeletal: limited due to PPE conservation strategy Skin: limited due to PPE conservation strategy Hem/Lymphatic: limited due to PPE conservation strategy Psych: limited due to PPE conservation strategy Neurological: limited due to PPE conservation strategy - Constitutional Vitals: Vital Signs Temp Pulse Resp BP Pulse Ox 97.5 F L 76 18 154/86 92 02/28/20 05:18 02/28/20 05:18 02/28/20 05:18 02/28/20 05:18 02/28/20 08:37 Temperature -Last 24 Hours Temperature 97.5 F Temperature 98.8 F Temperature 97.4 F - Labs CBC & Chem 7: 02/26/20 04:50 02/28/20 05:16 Labs: Abnormal lab results 02/28/20 Range/Units 05:16 BUN 21 H (7-17) mg/dL Glucose 114 H (65-100) mg/dL Calcium > 13.0 H* (8.4-10.2) mg/dL Albumin 2.8 L (3.9-5) g/dL
[2020-02-28] MEDS: SODIUM CHLORIDE 0.9% 1000 ML 1,000 ML IV SCH (13:57)
[2020-02-28] MEDS: REMDESIVIR 100 MG in SODIUM CHLORIDE 0.9% 250ML 250 ML IV SCH (14:08)
[2020-02-28] MEDS: SODIUM CHLORIDE 0.9% 50 ML IV SCH (14:39)
--- NOTE | 2020-02-28 15:23 | Progress Note ---
Assessment and Plan //COVID-19 PCR positive; Atypical viral pneumonia, off antibiotics cont to Check inflammatory markers ID following, contact and droplet isolation IV fluids and supportive care Continue dexamethasone and Remdesiver /B/L pneumonia/COVID-19 viral pneumonia off abx, cont supportive care Patient became hypoxic and requiring supplemental O2 started on Remdesiver and dexamethasone /Acute respiratory failure: - initially borderline hypoxia, currently on room air with Sats around 90-92%. Now sat down to 82% on 3.5L NC O2 - cont dexamethasone IV/PO 6 mg daily x 10 days due to hypoxemia - cont Remdesiver total 5 days /History of chronic hypercalcemia Secondary severe dehydration, S/p IV Pamidronate. Continue Sensipar. 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 need outpt f/u In view of COVID-19 positive/elevated D-dimers ID recommend heparin 0.5 mg/kg body weight every 12 hours /DVT prophylaxis Lovenox patient is on Lovenox. SCD Monitor closely and adjust management as needed Plan of care reviewed with patient and her nurse 10/26; COVID PCR positive, D-dimers elevated, ID recommend 0.5 mg every 12 hours subcu Lovenox 10/27; monitor O2 sats, If hypoxic, ID recommend Remdesivir 10/28: remains hypoxic, started on Remdesivir. consult nephrology for persistent hypercalcemia, will also order PTH level 10/29; continue dexamethasone IV/PO 6 mg daily , continue Remdesiver day 2 of 5. Patient doing slightly better. On 5L O2, wean off as tolerated. s/p iv pamidronate for hypercalcemia 02/27: Continue dexamethasone and REM dysphagia to complete total 5 days, continue to follow calcium level-repeat BMP tomorrow morning Disposition; follow ID recommendations, follow complete work-up. Discharge when stable Brief History The patient is a 49-year-old female with renal stones, hypertension admitted to the hospital yesterday with complaints of fever, cough and body aches going on for about 3 days prior to admission. chest x-ray showed bilateral infiltrates concerning for atypical pneumonia. COVID-19 PCR is positive. Infectious diseases was consulted for additional evaluation. Hospitalist Physical General appearance: Present: mild distress, obese - EENT Eyes: Present: PERRL, EOM intact - Neck Neck: Present: supple, normal ROM - Respiratory Respiratory effort: normal Respiratory: bilateral: diminished, rhonchi, negative: rales, wheezing - Cardiovascular Rhythm: regular Heart Sounds: Present: S1 & S2 - Extremities Extremities: no ischemia, No edema - Abdominal General gastrointestinal: soft, non-tender, non-distended, normal bowel sounds - Integumentary Integumentary: Present: clear, warm - Psychiatric Psychiatric: appropriate mood/affect, cooperative - Neurologic Neurologic: CNII-XII intact, moves all extremities Subjective Date of service: 02/28/20 Principal diagnosis: COVID Interval history: Patient seen and examined. Medical records and medication list reviewed. No acute event overnight noted by the RN. Vital reviewed COVID-19 positive patient, Isolation precautions, PPE protocols followed Patient complains of generalized weakness and shortness of breath on minimal ambulation Discussed plan of care at bedside with patient. Objective - Constitutional Vitals: Vital Signs - 12hr 02/28/20 02/28/20 02/28/20 05:18 08:37 11:35 Temperature 97.5 F L 97.6 F Pulse Rate 76 80 Respiratory 18 18 Rate Blood Pressure 154/86 122/84 O2 Sat by Pulse 92 92 90 Oximetry - Labs CBC & Chem 7: 02/26/20 04:50 03/01/20 06:31 Labs: Abnormal lab results 02/28/20 Range/Units 05:16 BUN 21 H (7-17) mg/dL Glucose 114 H (65-100) mg/dL Calcium > 13.0 H* (8.4-10.2) mg/dL Albumin 2.8 L (3.9-5) g/dL HEART Score - HEART Score Troponin: Troponin T < 0.010 ng/mL (0.00-0.029) 02/23/20 19:30
[2020-02-28] MEDS ORDERED: TOCILIZUMAB 400 MG in SODIUM CHLORIDE 0.9% 100 ML IV ONE (16:00)
[2020-02-28] MEDS: ZOLPIDEM 5 MG TAB PO PRN (23:28)
[2020-02-29 06:35] LABS: Albumin 3.1 g/dL (3.9-5); Calcium 11.6 mg/dL (8.4-10.2)
[2020-02-29] MEDS ORDERED: dexAMETHasone 20 MG/5 ML VIAL IV SCH (10:00)
[2020-02-29] MEDS: CINACALCET 30 MG TAB PO SCH (10:06)
[2020-02-29] MEDS: PANTOPRAZOLE 40 MG TAB PO SCH (10:06)
--- NOTE | 2020-02-29 10:31 | Progress Note ---
Assessment and Plan 1. Hypercalcemia: Associated with elevated PTH. 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 CT chest with IV contrast confirms mass in the mediastinum. Patient was recommended to see [place] [facility]. S/p IV Pamidronate. Continue Sensipar. Monitor Calcium level. 2. Isai pneumonia/COVID-19 viral pneumonia: Followed by ID. 3. Acute hypoxic respiratory failure: 2/2 pneumonia. NC O2 as needed. 4. Hypertension. 5. Medical non-compliance. - Subjective: Patient was seen and examined at the bedside. Doing ok. - General Appearance General appearance: well-developed, well-nourished, appears stated age, obese, no distress HEENT: ATNC, RENETTA, mucous membranes moist, hearing intact, vision intact Neck: neck supple, trachea midline Respiratory: Clear to Ascultation Heart: regular, S1S2, no murmur Gastrointestinal: Soft, normoactive bowel sounds, not tender, not distended Integumentary: no rash, warm and dry Neurologic: no focal deficit, no asterixis Ext: no edema Subjective Date of service: 02/29/20 Principal diagnosis: COVID Objective - Vital Signs Vital signs: Vital Signs - 12hr 02/28/20 02/29/20 02/29/20 22:35 05:19 06:26 Temperature 98.4 F Pulse Rate 82 Respiratory 18 Rate Blood Pressure 132/81 O2 Sat by Pulse 93 93 99 Oximetry - Lab 02/26/20 04:50 02/29/20 05:54 Most recent lab results Calcium 11.6 mg/dL (8.4-10.2) H 02/29/20 05:54 Phosphorus 2.50 mg/dL (2.5-4.5) 02/27/20 05:00 Magnesium 1.60 mg/dL (1.7-2.3) L 02/27/20 05:00 Medications & Allergies - Medications Allergies/Adverse Reactions: Allergies No Known Allergies Allergy (Verified 12/21/17 16:53) Home Medications: Home Medications Medication Instructions Recorded Confirmed Last Taken Type No Known Home Medications [No 02/24/20 02/24/20 Unknown History Reported Home Medications] Active Medications: Generic Name Dose Route Start Last Admin Trade Name Freq PRN Reason Stop Dose Admin Acetaminophen 650 mg 02/23/20 23:18 02/25/20 16:57 Tylenol PO 650 mg Q4H PRN Administration Fever >101 Cinacalcet 90 mg 02/28/20 20:37 02/29/20 10:06 Sensipar PO 90 mg QDAY SONIA Administration Dexamethasone 6 mg 02/29/20 10:00 02/29/20 10:04 Decadron IV 02/29/20 12:00 6 mg Q24HR SONIA Administration Dexamethasone 6 mg 03/01/20 10:00 Decadron PO 03/05/20 14:00 DAILY SONIA Enoxaparin Sodium 50 mg 02/29/20 10:00 Enoxaparin SUB-Q Q12HR SONIA Sodium Chloride 1,000 mls @ 150 mls/hr 02/23/20 23:30 02/28/20 13:57 Nacl 0.9% 1000 Ml IV 150 mls/hr DIRECT SONIA Administration REMDESIVIR 100 mg/ Sodium 250 mls @ 500 mls/hr 02/27/20 12:00 02/28/20 14:08 Chloride IV 03/01/20 12:29 500 mls/hr Q24H SONIA Administration Sodium Chloride 50 mls @ 200 mls/hr 02/26/20 13:00 02/28/20 14:39 Nacl 0.9% IV 03/01/20 13:14 200 mls/hr Q24H SONIA Administration Magnesium Sulfate 2 gm in 50 mls @ 25 mls/hr 02/29/20 11:00 Magnesium Sulfate 2gm/50ml IV 02/29/20 12:59 ONCE ONE Ondansetron HCl 4 mg 02/23/20 23:20 02/26/20 22:49 Zofran IV 4 mg Q8H PRN Administration Nausea And Vomiting Pantoprazole Sodium 40 mg 02/25/20 10:00 02/29/20 10:06 Protonix PO 40 mg QDAY SONIA Administration Zolpidem Tartrate 5 mg 02/25/20 22:00 02/28/20 23:28 Ambien PO 5 mg QHS PRN Administration Sleep
[2020-02-29] MEDS ORDERED: MAGNESIUM SULFATE 2 GM/50 ML BAG IV ONE (11:00)
[2020-02-29] MEDS: ENOXAPARIN 60 MG/0.6 ML INJ SUB-Q SCH ×2 (12:55→21:51)
[2020-02-29] MEDS: REMDESIVIR 100 MG in SODIUM CHLORIDE 0.9% 250ML 250 ML IV SCH (12:55)
[2020-02-29] MEDS: SODIUM CHLORIDE 0.9% 1000 ML 1,000 ML IV SCH ×2 (13:32→21:50)
[2020-02-29] MEDS: SODIUM CHLORIDE 0.9% 50 ML IV SCH (13:32)
--- NOTE | 2020-02-29 14:16 | Progress Note ---
Assessment and Plan Cultures: 02/23/2020 blood culture: In process A/P: 49-year-old female with renal stones, hypertension: #Fever: from COVID better #Bilateral pneumonia secondary to COVID-19: D-dimer 692-->869, rest of markers normal: ferritin 49-->65-->71, LDH 114-->206-->140, CRP 0.3 -->5-->5.1, ddimer 692-->669-->985. #Acute respiratory failure: now on 3L, sats dropped to 67% ambulating #Hypercalcemia: management per IMS. #Leucopenia: likely from COVID. Better #Mediastinal mass ? Recs: not ready to d/c continue dexamethasone IV/PO 6 mg daily day 5 of 10 continue Remdesiver day 4 of 5 continue prophylactic lovenox due to elevated d-dimer daily ferritin, LDH, d-dimer, CRP will follow. Helen Florez MD [facility] ([facility]) Office [phone] Subjective Date of service: 02/29/20 Principal diagnosis: COVID Interval history: Patient still on NC, O2 sats dropped to 67% Objective - Exam Narrative Exam: Physical Exam (reviewed in chart due to PPE conservation) Alert in NAD on NC O2 3 L Constitutional: limited due to PPE conservation strategy Head, Ears, Nose: limited due to PPE conservation strategy Eyes: limited due to PPE conservation strategy Neck: limited due to PPE conservation strategy Oral: limited due to PPE conservation strategy Cardiovascular: limited due to PPE conservation strategy Respiratory: limited due to PPE conservation strategy GI: limited due to PPE conservation strategy Musculoskeletal: limited due to PPE conservation strategy Skin: limited due to PPE conservation strategy Hem/Lymphatic: limited due to PPE conservation strategy Psych: limited due to PPE conservation strategy Neurological: limited due to PPE conservation strategy - Constitutional Vitals: Vital Signs Temp Pulse Resp BP Pulse Ox 98.3 F 52 L 18 146/74 95 02/29/20 11:48 02/29/20 11:48 02/29/20 11:48 02/29/20 11:48 02/29/20 11:48 Temperature -Last 24 Hours Temperature 98.3 F Temperature 98.4 F Temperature 97.0 F Temperature 97.5 F - Labs CBC & Chem 7: 02/26/20 04:50 02/29/20 05:54 Labs: Abnormal lab results 02/29/20 02/29/20 Range/Units 05:54 10:13 BUN 19 H (7-17) mg/dL Calcium 11.6 H (8.4-10.2) mg/dL Ferritin 2.5 L (13.0-400.0) ng/mL Total Protein 5.9 L (6.3-8.2) g/dL Albumin 3.1 L (3.9-5) g/dL
--- NOTE | 2020-02-29 15:09 | Progress Note ---
Assessment and Plan /COVID-19 PCR positive; Atypical viral pneumonia, off antibiotics cont to Check inflammatory markers ID following, contact and droplet isolation IV fluids and supportive care Continue dexamethasone and Remdesiver /B/L pneumonia/COVID-19 viral pneumonia off abx, cont supportive care Patient became hypoxic and requiring supplemental O2 started on Remdesiver and dexamethasone /Acute respiratory failure: - initially borderline hypoxia, currently on room air with Sats around 90-92%. 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 CT chest with IV contrast confirms mass in the mediastinum. Patient was recommended to see [facility]. 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 In view of COVID-19 positive, ID recommend lovenox 0.5 mg/kg body weight every 12 hours /DVT prophylaxis Lovenox patient is on Lovenox. SCD Monitor closely and adjust management as needed Plan of care reviewed with patient and her nurse 10/26; COVID PCR positive, D-dimers elevated, ID recommend 0.5 mg every 12 hours subcu Lovenox 10/27; monitor O2 sats, If hypoxic, ID recommend Remdesivir 10/28: remains hypoxic, started on Remdesivir. consult nephrology for persistent hypercalcemia, will also order PTH level 10/29; continue dexamethasone IV/PO 6 mg daily , continue Remdesiver day 2 of 5. Patient doing slightly better. On 5L O2, wean off as tolerated. s/p iv pamidronate for hypercalcemia 02/27: Continue dexamethasone and REM dysphagia to complete total 5 days, continue to follow calcium level-repeat BMP tomorrow morning 02/28: O2 sat dropped to 67% on ambulation. continue dexamethasone IV/PO 6 mg daily day , Remdesiver day 4 of , continue prophylactic lovenox due to elevated d-dimer. Monitor daily ferritin, LDH, d-dimer, CRP . Improving calcium level Disposition; follow ID recommendations, Discharge when clears by ID Brief History The patient is a 49-year-old female with renal stones, hypertension admitted to the hospital yesterday with complaints of fever, cough and body aches going on for about 3 days prior to admission. chest x-ray showed bilateral infiltrates concerning for atypical pneumonia. COVID-19 PCR is positive. Infectious diseases was consulted for additional evaluation. Hospitalist Physical General appearance: Present: mild distress, obese - EENT Eyes: Present: PERRL, EOM intact - Neck Neck: Present: supple, normal ROM - Respiratory Respiratory effort: normal Respiratory: bilateral: diminished, rhonchi, negative: rales, wheezing - Cardiovascular Rhythm: regular Heart Sounds: Present: S1 & S2 - Extremities Extremities: no ischemia, No edema - Abdominal General gastrointestinal: soft, non-tender, non-distended, normal bowel sounds - Integumentary Integumentary: Present: clear, warm - Psychiatric Psychiatric: appropriate mood/affect, cooperative - Neurologic Neurologic: CNII-XII intact, moves all extremities Subjective Date of service: 02/29/20 Principal diagnosis: COVID Interval history: Patient seen and examined. Medical records and medication list reviewed. No acute event overnight noted by the RN. Vital reviewed COVID-19 positive patient, Isolation precautions, PPE protocols followed Patient complains of generalized weakness and shortness of breath on minimal ambulation Discussed plan of care at bedside with patient. Objective - Constitutional Vitals: Vital Signs - 12hr 02/29/20 02/29/20 02/29/20 05:19 06:26 11:48 Temperature 98.4 F 98.3 F Pulse Rate 82 52 L Respiratory 18 18 Rate Blood Pressure 132/81 146/74 O2 Sat by Pulse 93 99 95 Oximetry - Labs CBC & Chem 7: 02/26/20 04:50 03/01/20 06:31 Labs: Abnormal lab results 02/29/20 02/29/20 Range/Units 05:54 10:13 BUN 19 H (7-17) mg/dL Calcium 11.6 H (8.4-10.2) mg/dL Ferritin 2.5 L (13.0-400.0) ng/mL Total Protein 5.9 L (6.3-8.2) g/dL Albumin 3.1 L (3.9-5) g/dL HEART Score - HEART Score Troponin: Troponin T < 0.010 ng/mL (0.00-0.029) 02/23/20 19:30
[2020-02-29] MEDS: ZOLPIDEM 5 MG TAB PO PRN (21:50)
[2020-03-01] MEDS: SODIUM CHLORIDE 0.9% 1000 ML 1,000 ML IV SCH (06:18)
[2020-03-01 08:15] LABS: Alanine Aminotransferase 32 units/L (7-56); Albumin 3.2 g/dL (3.9-5); BUN/Creatinine Ratio 13; Blood Urea Nitrogen 13 mg/dL (7-17); Calcium 10.2 mg/dL (8.4-10.2); Hemolysis Index 1
[2020-03-01] MEDS: PANTOPRAZOLE 40 MG TAB PO SCH (09:44)
[2020-03-01] MEDS: CINACALCET 30 MG TAB PO SCH (09:44)
[2020-03-01] MEDS: ENOXAPARIN 60 MG/0.6 ML INJ SUB-Q SCH (09:46)
[2020-03-01] MEDS ORDERED: DEXAMETHASONE 4 MG TAB PO SCH (10:00)
--- NOTE | 2020-03-01 12:03 | Progress Note ---
Assessment and Plan 1. Hypercalcemia: Associated with elevated PTH. 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 CT chest with IV contrast confirms mass in the mediastinum. Patient was recommended to see [facility]. S/p IV Pamidronate. Continue Sensipar. Calcium level is improving. Monitor Calcium level. 2. FEN: Replete K. Monitor lytes and volume status. 3. Isai pneumonia/COVID-19 viral pneumonia: Followed by ID. 4. Acute hypoxic respiratory failure: 2/2 pneumonia. NC O2 as needed. 5. Hypertension. 6. Medical non-compliance. - Subjective: Patient was seen and examined near the doorside. Doing ok. - General Appearance General appearance: well-developed, well-nourished, appears stated age, obese, no distress HEENT: ATNC, hearing intact Neurologic: able to move extremities Subjective Date of service: 03/01/20 Principal diagnosis: COVID Objective - Vital Signs Vital signs: Vital Signs - 12hr 03/01/20 03/01/20 03/01/20 00:12 06:12 09:07 Temperature 97.7 F 97.3 F L Pulse Rate 72 48 L Respiratory 20 20 Rate Blood Pressure 134/75 145/63 O2 Sat by Pulse 99 95 96 Oximetry 03/01/20 10:48 Temperature 97.6 F Pulse Rate 82 Respiratory 22 Rate Blood Pressure 127/79 O2 Sat by Pulse 96 Oximetry - Lab 02/26/20 04:50 03/01/20 06:31 Most recent lab results Calcium 10.2 mg/dL (8.4-10.2) 03/01/20 06:31 Phosphorus 2.50 mg/dL (2.5-4.5) 02/27/20 05:00 Magnesium 1.70 mg/dL (1.7-2.3) 02/29/20 10:13 Medications & Allergies - Medications Allergies/Adverse Reactions: Allergies No Known Allergies Allergy (Verified 12/21/17 16:53) Home Medications: Home Medications Medication Instructions Recorded Confirmed Last Taken Type No Known Home Medications [No 02/24/20 02/24/20 Unknown History Reported Home Medications] Active Medications: Generic Name Dose Route Start Last Admin Trade Name Freq PRN Reason Stop Dose Admin Acetaminophen 650 mg 02/23/20 23:18 02/25/20 16:57 Tylenol PO 650 mg Q4H PRN Administration Fever >101 Cinacalcet 90 mg 02/28/20 20:37 03/01/20 09:44 Sensipar PO 90 mg QDAY SONIA Administration Dexamethasone 6 mg 03/01/20 10:00 03/01/20 09:45 Decadron PO 03/05/20 14:00 6 mg DAILY SONIA Administration Enoxaparin Sodium 50 mg 02/29/20 10:00 03/01/20 09:46 Enoxaparin SUB-Q 50 mg Q12HR SONIA Administration Sodium Chloride 1,000 mls @ 150 mls/hr 02/23/20 23:30 03/01/20 06:18 Nacl 0.9% 1000 Ml IV 150 mls/hr DIRECT SONIA Administration REMDESIVIR 100 mg/ Sodium 250 mls @ 500 mls/hr 02/27/20 12:00 02/29/20 12:55 Chloride IV 03/01/20 12:29 500 mls/hr Q24H SONIA Administration Sodium Chloride 50 mls @ 200 mls/hr 02/26/20 13:00 02/29/20 13:32 Nacl 0.9% IV 03/01/20 13:14 200 mls/hr Q24H SONIA Administration Ondansetron HCl 4 mg 02/23/20 23:20 02/26/20 22:49 Zofran IV 4 mg Q8H PRN Administration Nausea And Vomiting Pantoprazole Sodium 40 mg 02/25/20 10:00 03/01/20 09:44 Protonix PO 40 mg QDAY SONIA Administration Zolpidem Tartrate 5 mg 02/25/20 22:00 02/29/20 21:50 Ambien PO 5 mg QHS PRN Administration Sleep
[2020-03-01] MEDS: POTASSIUM CHLORIDE ER 20 MEQ TAB PO SCH ×2 (12:24→17:13)
[2020-03-01] MEDS ORDERED: CINACALCET 30 MG TAB PO SCH (12:42)
[2020-03-01] MEDS: REMDESIVIR 100 MG in SODIUM CHLORIDE 0.9% 250ML 250 ML IV SCH (13:15)
[2020-03-01] MEDS: SODIUM CHLORIDE 0.9% 50 ML IV SCH (14:10)
--- NOTE | 2020-03-01 14:31 | Discharge Summary ---
Providers - Providers Date of Admission: 02/23/20 22:24 Date of discharge: 03/01/20 Attending physician: KIYA GREEN 02/23/20 22:12 Consult to Physician [CONS] Urgent Comment: Consulting Provider: TANNER NOBLES Physician Instructions: Reason For Exam: SUSPECTED COVID PNEUMONIA 02/26/20 09:33 Physical Therapy Evaluation and Treat [CONS] Stat Comment: Reason For Exam: deconditioning 02/26/20 14:56 Consult to Physician [CONS] Routine Comment: Consulting Provider: DYLAN DORANTES Physician Instructions: Reason For Exam: hypercalcemia 02/28/20 12:52 Consult to Case Management [CONS] Routine Services Needed at Discharge: Home O2 Notified:: JULIEN Primary care physician: DIRECTOR OF CASEWORK DEPARTMENT Hospitalization Condition: Stable Pertinent studies: Chest x-ray, chest CTA Hospital course: The patient is a 49-year-old female with renal stones, hypertension admitted to the hospital on 02/24/20 with complaints of fever, cough and body aches going on for about 3 days prior to admission. chest x-ray showed bilateral infiltrates concerning for atypical pneumonia. Her COVID-19 PCR is positive. Infectious diseases was consulted for additional evaluation. Patient was treated with dexamethasone and Remdesiver. She also noted to have hypercalcemia, nephrology was consulted and treated with 1 dose of pamidronate and started on Sensipar, also received IV fluid. Her calcium level normalized. She completed the course for Remdesiver. ID recommended to complete total 10 days of dexamethasone. Patient qualified for home O2 and was discharged home in stable condition with outpatient follow-up. Daily course: 10/26; COVID PCR positive, D-dimers elevated, ID recommend 0.5 mg every 12 hours subcu Lovenox 10/27; monitor O2 sats, If hypoxic, ID recommend Remdesivir 10/28: remains hypoxic, started on Remdesivir. consult nephrology for persistent hypercalcemia, will also order PTH level 10/29; continue dexamethasone IV/PO 6 mg daily , continue Remdesiver day 2 of 5. Patient doing slightly better. On 5L O2, wean off as tolerated 02/27: Continue dexamethasone and REM dysphagia to complete total 5 days, continue to follow calcium level-repeat BMP tomorrow morning 02/28: O2 sat dropped to 67% on ambulation. continue dexamethasone IV/PO 6 mg daily day 5 of 10, Remdesiver day 4 of 5, continue prophylactic lovenox due to elevated d-dimer. Monitor daily ferritin, LDH, d-dimer, CRP . Improving calcium level 03/01: Completed MD severe day 5 out of 5 today. Patient will continue dexamethasone to complete total 10 days course. Appears hypoxic on ambulation arrange for home O2. Also encouraged and advised to follow-up at [facility]. Patient discharged home in stable condition with home oxygen and outpatient follow-up. Discharge diagnosis and management: /COVID-19 PCR positive; Atypical viral pneumonia, off antibiotics followed inflammatory markers, placed on contact and droplet isolation s/p dexamethasone and Remdesiver treatment /B/L pneumonia/COVID-19 viral pneumonia off abx, cont supportive care Patient became hypoxic and requiring supplemental O2 started on Remdesiver and dexamethasone /Acute respiratory failure: - initially borderline hypoxia, currently on room air with Sats around 90-92%. 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 CT chest with IV contrast confirms mass in the mediastinum. Patient was recommended to see [facility]. 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 In view of COVID-19 positive, ID recommend lovenox 0.5 mg/kg body weight every 12 hours while inpatient /DVT prophylaxis Lovenox patient is on Lovenox. SCD Disposition: Home with home health and home O2 Hospitalist Physical General appearance: Present: mild distress, obese - EENT Eyes: Present: PERRL, EOM intact - Neck Neck: Present: supple, normal ROM - Respiratory Respiratory effort: normal Respiratory: bilateral: diminished, rhonchi, negative: rales, few wheezing - Cardiovascular Rhythm: regular Heart Sounds: Present: S1 & S2 - Extremities Extremities: no ischemia, No edema - Abdominal General gastrointestinal: soft, non-tender, non-distended, normal bowel sounds - Integumentary Integumentary: Present: clear, warm - Psychiatric Psychiatric: appropriate mood/affect, cooperative - Neurologic Neurologic: CNII-XII intact, moves all extremities Disposition: DC-01 TO HOME OR SELFCARE Time spent for discharge: 34 minutes Core Measure Documentation - Palliative Care Palliative Care/ Comfort Measures: Not Applicable - Core Measures Any of the following diagnoses?: none Exam - Constitutional Vitals: Temp Pulse Resp BP Pulse Ox 97.6 F 82 22 127/79 96 03/01/20 10:48 03/01/20 10:48 03/01/20 10:48 03/01/20 10:48 03/01/20 10:48 Plan Activity: advance as tolerated Weight Bearing Status: Weight Bear as Tolerated Diet: low fat, low salt Special Instructions: home oxygen via (3L N/C) Additional Instructions: Repeat BMP in one week Follow up with: PRIMARY CAREMD [Primary Care Provider] - 7 Days TANNER NOBLES MD [Staff Physician] - 7 Days DYLAN DORANTES MD [Staff Physician] - 7 Days Prescriptions: dexAMETHasone [Decadron] 6 mg PO DAILY #5 tablet Albuterol INH(or & Nicu Only) [ProAir HFA Inhaler] 2 puff IH QID PRN #8.5 gram PRN Reason: Shortness Of Breath Pantoprazole [Protonix TAB] 40 mg PO QDAY #7 tablet Cinacalcet [Sensipar] 60 mg PO QDAY #30 tablet
[2020-03-01 14:36] LABS: C-Reactive Protein 0.3 mg/dL (0.00-1.30)
[2020-03-01 17:55] VITALS: BP 117/73
== END 2020-03-01 18:30 | disposition home or self-care (01) | DRG 177 ==
LOC: ED 17:42 → IMCU 22:24 → CC1 02-24 08:06 → 3A 02-24 12:45
PROVIDERS: ADMIT Internal Medicine; ATTEND Internal Medicine
DX: U07.1 COVID-19 (principal); J96.01 Acute respiratory failure with hypoxia; J12.89 Other viral pneumonia; E21.3 Hyperparathyroidism, unspecified; D72.819 Decreased white blood cell count, unspecified; I10 Essential (primary) hypertension; Z91.14 Patient's other noncompliance with medication regimen; Z87.442 Personal history of urinary calculi
CPT/HCPCS: 36415; 71046; 71275; 80048; 80053; 81001; 82140; 82310; 82728; 82947; 83615; 83735; 83880; 83970; 84100; 84145; 84443; 84484; 84703; 85025; 85379; 86140; 87040; 87086; 94760; G0378; J0456; J0696; J1100; J1650; J1940; J2405; J2430; J3475; J7030; J7040; J7050; J8540; Q9967; U0003-CS

== ENCOUNTER 2020-07-28 20:37 | Inpatient (IN) | payer MEDICAID ==
[2020-07-28] MEDS ORDERED: SODIUM CHLORIDE 0.9% 1000 ML 1,000 ML IV ONE ×2 (21:26→22:51)
[2020-07-28] MEDS ORDERED: ONDANSETRON 4 MG/2 ML INJ IV ONE ×2 (21:26→23:51)
[2020-07-28] MEDS ORDERED: HYDROmorphone 1 MG/1 ML INJ IV ONE ×2 (21:44→23:51)
[2020-07-28 21:55] LABS: Basophils % (Auto) 0.3 % (0.0-1.8); Eosinophils # (Auto) 0.1 K/mm3 (0.0-0.4); Eosinophils % (Auto) 1.2 % (0.0-4.3); Hematocrit 33.7 % (30.3-42.9); Hemoglobin 11.1 gm/dl (10.1-14.3); Lymphocytes % (Auto) 12.9 % (13.4-35.0); Mean Corpuscular HGB Conc 33 % (30-34); Mean Corpuscular Volume 82 fl (79-97); Monocytes # (Auto) 0.6 K/mm3 (0.0-0.8); Monocytes % (Auto) 7.3 % (0.0-7.3); Platelet Count 297 K/mm3 (140-440); Red Blood Count 4.12 M/mm3 (3.65-5.03); Red Cell Distribution Width 21.2 % (13.2-15.2)
--- NOTE | 2020-07-28 22:00 | Emergency Department Report ---
ED Abdominal Pain HPI - General Chief Complaint: Abdominal Pain Stated Complaint: ABD PAIN N/V Time Seen by Provider: 07/28/20 21:25 Source: EMS, old records reviewed Mode of arrival: Stretcher Limitations: No Limitations - History of Present Illness Initial Comments: 50-year-old female with a past medical history of hypertension, kidney stones, history of renal stent in 2018 recently admitted to the hospital with discharged yesterday for acute pancreatitis secondary to gallstones, status post laparoscopic cholecystectomy with intraoperative cholangiogram on 07/25, also noted to have left 5 mm ureteral stone by CT imaging during admission, and hyp ercalcemia (treated with pamidronate and IV fluids) secondary to 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 Patient states she was receiving medications for nausea and abdominal pain while admitted. She was discharged on Sensipar, magnesium, and phosphorus however, does not appear to patient received medications for pain or nausea upon discharge. Patient states she was unable to afford the Sensipar because it cost $800. During admission patient also had PRATIMA secondary to dehydration which improved with IV hydration. Patient denies any other abdominal surgeries and continues to have menstrual cycles. Patient received IV Zofran 4 mg prior to arrival with EMS and is continued to have vomiting upon arrival Cholecystectomy performed by Dr. Richter - Related Data Previous Rx's Medication Instructions Recorded Last Taken Type Cinacalcet [Sensipar] 60 mg PO QDAY #30 tablet 07/27/20 Unknown Rx Magnesium Oxide [Mag-Ox] 400 mg PO QDAY #30 tablet 07/27/20 Unknown Rx Phosphorus #1 [K-Phos Neutral] 250 mg PO QID #60 tablet 07/27/20 Unknown Rx Allergies Allergy/AdvReac Type Severity Reaction Status Date / Time No Known Allergies Allergy Verified 12/21/17 16:53 ED Review of Systems ROS: Stated complaint: ABD PAIN N/V Other details as noted in HPI Comment: All other systems reviewed and negative ED Past Medical Hx - Past Medical History Hx Hypertension: Yes ("in the past") Hx Congestive Heart Failure: No Hx Diabetes: No Hx Renal Disease: Yes (Kidney stone, PRATIMA secondary to dehydration) Hx Kidney Stones: Yes Hx Asthma: No Hx COPD: No Hx HIV: No Additional medical history: covid 02/2020. Hyperparathyroidism with hypercalce anusha, hypophosphatemia, hypomagnesemia. Mediastinal ectopic parathyroid mass - Surgical History Hx Cholecystectomy: Yes (Laparoscopic cholecystectomy 07/25/2020) Additional Surgical History: LASER surgery kidney stone. 1 renal stent placed 05/2018 - Social History Smoking Status: Unknown if ever smoked Substance Use Type: None - Medications Home Medications: Home Medications Medication Instructions Recorded Confirmed Last Taken Type Cinacalcet [Sensipar] 60 mg PO QDAY #30 tablet 07/27/20 Unknown Rx Magnesium Oxide [Mag-Ox] 400 mg PO QDAY #30 tablet 07/27/20 Unknown Rx Phosphorus #1 [K-Phos Neutral] 250 mg PO QID #60 tablet 07/27/20 Unknown Rx ED Physical Exam - General Limitations: No Limitations - Other Other exam information: General: Mild distress secondary to pain Head: Atraumatic Eyes: normal appearance ENT: Moist mucous membranes Neck: Normal appearance, no midline tenderness Chest: Clear to auscultation bilaterally CV: Regular rate and rhythm Abdomen: Soft, full surgical wounds without erythema or drainage. Generalized abdominal tenderness greatest in the right abdomen. Positive bowel sounds Back: Normal inspection Extremity: Normal inspection, full range of motion Neuro: Alert O x 3, no facial asymmetry, speech clear, no gross motor sensory deficit Psych: Appropriate behavior Skin: No rash ED Course Vital Signs 07/28/20 07/28/20 20:49 23:52 Temperature 98.6 F Pulse Rate 133 H 109 H Respiratory 16 16 Rate Blood Pressure 117/88 145/94 [Left] O2 Sat by Pulse 100 99 Oximetry - Reevaluation(s) Reevaluation #1: 07/29/20 00:28 Heart rate improving with IV fluids and pain reduction. However, and symptoms of pain and nausea vomiting persisted and additional meds were required - Consultations Consultation #1: 07/28/20 23:[address] Solis nephrology who is made with the patient for recent admission. Does not recommend pamidronate at this time for increase in calcium level. Recommend Sensipar and 60 or 90 mg p.o. instead. Patient is known to be noncompliant. He states that if patient is discharged she should be encouraged to come to his office and they might be able to assist her with further resources and affording her medication. 07/28/20 23:[address] Oseguera. She recommends vascular consult regarding splenic vein thrombosis. States that if patient requires anticoagulation there is no contraindication from a surgical standpoint 07/28/20 23:[address] Chery on-call vascular surgeon who recommends heparin drip. States splenic vein thrombosis is a common complication of acute pancreatitis. ED Medical Decision Making - Lab Data Result diagrams: 07/28/20 21:35 07/28/20 21:35 Lab Results 07/28/20 07/28/20 07/28/20 Range/Units 21:35 21:35 21:35 WBC 7.8 (4.5-11.0) K/mm3 RBC 4.12 (3.65-5.03) M/mm3 Hgb 11.1 (10.1-14.3) gm/dl Hct 33.7 (30.3-42.9) % MCV 82 (79-97) fl MCH 27 L (28-32) pg MCHC 33 (30-34) % RDW 21.2 H (13.2-15.2) % Plt Count 297 (140-440) K/mm3 Lymph % (Auto) 12.9 L (13.4-35.0) % Avery % (Auto) 7.3 (0.0-7.3) % Eos % (Auto) 1.2 (0.0-4.3) % Baso % (Auto) 0.3 (0.0-1.8) % Lymph # (Auto) 1.0 L (1.2-5.4) K/mm3 Avery # (Auto) 0.6 (0.0-0.8) K/mm3 Eos # (Auto) 0.1 (0.0-0.4) K/mm3 Baso # (Auto) 0.0 (0.0-0.1) K/mm3 Seg Neutrophils % 78.3 H (40.0-70.0) % Seg Neutrophils # 6.1 (1.8-7.7) K/mm3 Sodium 140 (137-145) mmol/L Potassium 3.2 L (3.6-5.0) mmol/L Chloride 103.4 (98-107) mmol/L Carbon Dioxide 27 (22-30) mmol/L Anion Gap 13 mmol/L BUN 7 (7-17) mg/dL Creatinine 0.9 (0.6-1.2) mg/dL Estimated GFR > 60 ml/min BUN/Creatinine Ratio 8 % Glucose 117 H (65-100) mg/dL Calcium 10.4 H D (8.4-10.2) mg/dL Phosphorus (2.5-4.5) mg/dL Magnesium 1.30 L (1.7-2.3) mg/dL Total Bilirubin 0.50 (0.1-1.2) mg/dL AST 12 (5-40) units/L ALT 13 (7-56) units/L Alkaline Phosphatase 110 (35-129) units/L Total Protein 6.8 (6.3-8.2) g/dL Albumin 3.3 L (3.9-5) g/dL Albumin/Globulin Ratio 0.9 % Lipase 129 H (13-60) units/L HCG, Qual Negative (Negative) Urine Color (Yellow) Urine Turbidity (Clear) Urine pH (5.0-7.0) Ur Specific Wentworth (1.003-1.030) Urine Protein (Negative) mg/dL Urine Glucose (UA) (Negative) mg/dL Urine Ketones (Negative) mg/dL Urine Blood (Negative) Urine Nitrite (Negative) Urine Bilirubin (Negative) Urine Urobilinogen (<2.0) mg/dL Ur Leukocyte Esterase (Negative) Urine WBC (Auto) (0.0-6.0) /HPF Urine RBC (Auto) (0.0-6.0) /HPF U Epithel Cells (Auto) (0-13.0) /HPF Urine Mucus /HPF Urine Yeast (Budding) /HPF 07/28/20 07/28/20 Range/Units 23:19 23:51 WBC (4.5-11.0) K/mm3 RBC (3.65-5.03) M/mm3 Hgb (10.1-14.3) gm/dl Hct (30.3-42.9) % MCV (79-97) fl MCH (28-32) pg MCHC (30-34) % RDW (13.2-15.2) % Plt Count (140-440) K/mm3 Lymph % (Auto) (13.4-35.0) % Avery % (Auto) (0.0-7.3) % Eos % (Auto) (0.0-4.3) % Baso % (Auto) (0.0-1.8) % Lymph # (Auto) (1.2-5.4) K/mm3 Avery # (Auto) (0.0-0.8) K/mm3 Eos # (Auto) (0.0-0.4) K/mm3 Baso # (Auto) (0.0-0.1) K/mm3 Seg Neutrophils % (40.0-70.0) % Seg Neutrophils # (1.8-7.7) K/mm3 Sodium (137-145) mmol/L Potassium (3.6-5.0) mmol/L Chloride (98-107) mmol/L Carbon Dioxide (22-30) mmol/L Anion Gap mmol/L BUN (7-17) mg/dL Creatinine (0.6-1.2) mg/dL Estimated GFR ml/min BUN/Creatinine Ratio % Glucose (65-100) mg/dL Calcium (8.4-10.2) mg/dL Phosphorus 1.70 L (2.5-4.5) mg/dL Magnesium (1.7-2.3) mg/dL Total Bilirubin (0.1-1.2) mg/dL AST (5-40) units/L ALT (7-56) units/L Alkaline Phosphatase (35-129) units/L Total Protein (6.3-8.2) g/dL Albumin (3.9-5) g/dL Albumin/Globulin Ratio % Lipase (13-60) units/L HCG, Qual (Negative) Urine Color Yellow (Yellow) Urine Turbidity Clear (Clear) Urine pH 7.0 (5.0-7.0) Ur Specific Wentworth 1.019 (1.003-1.030) Urine Protein <15 mg/dl (Negative) mg/dL Urine Glucose (UA) 50 (Negative) mg/dL Urine Ketones Neg (Negative) mg/dL Urine Blood Sm (Negative) Urine Nitrite Neg (Negative) Urine Bilirubin Neg (Negative) Urine Urobilinogen < 2.0 (<2.0) mg/dL Ur Leukocyte Esterase Lg (Negative) Urine WBC (Auto) 52.0 H (0.0-6.0) /HPF Urine RBC (Auto) 5.0 (0.0-6.0) /HPF U Epithel Cells (Auto) 8.0 (0-13.0) /HPF Urine Mucus Few /HPF Urine Yeast (Budding) 1+ /HPF - EKG Data -: EKG Interpreted by [facility] EKG shows normal: sinus rhythm, ST-T waves (no stemi) Rate: tachycardia (111) - Radiology Data Radiology results: report reviewed CT ABDOMEN AND PELVIS WITH IV CONTRAST INDICATION: Post-Op abdominal pain (right sided) with N/V.. COMPARISON: CT 07/21/2020 TECHNIQUE: All CT scans at this facility use dose modulation, automated exposure control, iterative reconstruction or weight based dosing, when appropriate, to reduce radiation dose to as low as reasonably achievable. FINDINGS: Lung Bases: There are couple punctate nodular densities in the right middle lobe and lateral right lower lobe which may be postinflammatory. Not significantly changed. No acute findings. Skeletal System: No acute abnormality. Bilateral sacroiliitis unchanged. ABDOMEN: Liver: No significant abnormality. Gallbladder: Interval cholecystectomy. Bile Ducts: No significant abnormality. Pancreas: There is mild peripancreatic inflammation. This is improved when compared with the prior. Nonocclusive thrombus is seen within the splenic vein (series 2 image 55). No peripancreatic fluid collection or pancreatic necrosis. Spleen: No significant abnormality. Adrenals: No significant abnormality. Right Kidney: No acute finding. Left Kidney: Punctate stones are again seen. 5 mm obstructing stone in the distal left ureter is again noted with mild left hydroureteronephrosis which is slightly worsened. Upper GI tract: No significant abnormality. Lymph Nodes: No significant adenopathy. Aorta: No significant abnormality. Additional Findings: Density within the right upper quadrant anterior abdominal wall may be postoperative hematoma related to interval cholecystectomy (series 2 image 52). PELVIS: Colon: No acute abnormality. Urinary Bladder: No significant abnormality. Appendix: No significant abnormality. Lymph Nodes: No significant adenopathy. Additional Findings: None. IMPRESSION: 1. Mild acute pancreatitis. No pancreatic necrosis or peripancreatic fluid collections are seen. There is nonocclusive thrombus within the splenic vein adjacent to the pancreas. 2. Interval cholecystectomy. No common duct stones are seen. 3. Persistent obstructing stone in the distal left ureter with mild left hydroureteronephrosis, slightly worsened. 4. Additional incidental findings as above. - Medical Decision Making 50-year-old female presents to the hospital after discharge yesterday with persistent nausea, vomiting, abdominal pain, p.o. intolerance despite ED treatment and discharge from the hospital. CT shows findings of mild pancreatitis and new splenic vein thrombosis likely secondary to pancreatitis. Anticoagulation with heparin drip recommended by vascular surgeon. Patient has a persistent left ureteral stone which was in the mid ureter on previous scan and now in the distal ureter with mild hydroutero nephrosis. Patient has normal kidney function and states that her pain is primarily on the right side.UA suggestive of UTI however, urine could appear infected secondary to ureteral stone. Culture pending. Patient does not have fever, leukocytosis, or anion gap acidosis as per BMP. Patient treated with Rocephin. Patient was treated in ED with narcotic pain medications, antiemetics, IV fluids, and electrolyte supplementation. Case was discussed with genetic scientist, surgeon, and vascular surgeon. Patient will be admitted to the hospital due to persistent symptoms. Critical Care Time: No Critical care attestation.: If time is entered above; I have spent that time in minutes in the direct care of this critically ill patient, excluding procedure time. ED Disposition Clinical Impression: Hydronephrosis with renal and ureteral calculous obstruction, Acute pancreatitis, Acute thrombosis of splenic vein, Nausea and vomiting, Intractable abdominal pain, Hyperparathyroidism, Hypercalcemia, Hypomagnesemia, Hypophosphatemia, UTI (urinary tract infection), Status post laparoscopic cholecystectomy Disposition: -09 OP ADMIT IP TO THIS HOSP Is pt being admited?: Yes Condition: Stable Instructions: Abdominal Pain (ED) Referrals: PRIMARY CARE, [Primary Care Provider] - 3-5 Days Time of Disposition: 00:24 (Dr. Willard/hospitalist)
[2020-07-28 22:13] LABS: Alanine Aminotransferase 13 units/L (7-56); Albumin 3.3 g/dL (3.9-5); BUN/Creatinine Ratio 8; Blood Urea Nitrogen 7 mg/dL (7-17); Calcium 10.4 mg/dL (8.4-10.2); Hemolysis Index 0
[2020-07-28] MEDS ORDERED: MAGNESIUM SULFATE 2 GM/50 ML BAG IV ONE (22:51)
--- NOTE | 2020-07-28 22:59 | Cat Scan Report ---
CT ABDOMEN AND PELVIS WITH IV CONTRAST INDICATION: Post-Op abdominal pain (right sided) with N/V.. COMPARISON: CT 07/21/2020 TECHNIQUE: All CT scans at this facility use dose modulation, automated exposure control, iterative reconstructi on or weight based dosing, when appropriate, to reduce radiation dose to as low as reasonably achieva ble. FINDINGS: Lung Bases: There are couple punctate nodular densities in the right middle lobe and lateral right lo wer lobe which may be postinflammatory. Not significantly changed. No acute findings. Skeletal System: No acute abnormality. Bilateral sacroiliitis unchanged. ABDOMEN: Liver: No significant abnormality. Gallbladder: Interval cholecystectomy. Bile Ducts: No significant abnormality. Pancreas: There is mild peripancreatic inflammation. This is improved when compared with the prior. N onocclusive thrombus is seen within the splenic vein (series 2 image 55). No peripancreatic fluid col lection or pancreatic necrosis. Spleen: No significant abnormality. Adrenals: No significant abnormality. Right Kidney: No acute finding. Left Kidney: Punctate stones are again seen. 5 mm obstructing stone in the distal left ureter is agai n noted with mild left hydroureteronephrosis which is slightly worsened. Upper GI tract: No significant abnormality. Lymph Nodes: No significant adenopathy. Aorta: No significant abnormality. Additional Findings: Density within the right upper quadrant anterior abdominal wall may be postopera tive hematoma related to interval cholecystectomy (series 2 image 52). PELVIS: Colon: No acute abnormality. Urinary Bladder: No significant abnormality. Appendix: No significant abnormality. Lymph Nodes: No significant adenopathy. Additional Findings: None. IMPRESSION: 1. Mild acute pancreatitis. No pancreatic necrosis or peripancreatic fluid collections are seen. The re is nonocclusive thrombus within the splenic vein adjacent to the pancreas. 2. Interval cholecystectomy. No common duct stones are seen. 3. Persistent obstructing stone in the distal left ureter with mild left hydroureteronephrosis, sligh tly worsened. 4. Additional incidental findings as above. Signer Name: Jorge Pierce MD Signed: 07/28/2020 10:55 PM Workstation Name: [id number]
[2020-07-28] MEDS ORDERED: METOCLOPRAMIDE 10 MG/2 ML INJ IV ONE (23:51)
[2020-07-28] MEDS ORDERED: diphenhydrAMINE 50 MG/ML VIAL IV ONE (23:51)
[2020-07-29] MEDS: POTASSIUM CHLORIDE 10 MEQ 10 MEQ/100 ML BAG IV SCH ×2 (00:02→01:23)
[2020-07-29 00:06] LABS: Bilirubin,Urine NEG (Negative); Blood,Urine SM (Negative); Color,Urine Yellow (Yellow); Mucus,Urine FEW /HPF; Protein,Urine <15 mg/dL mg/dL (Negative); Urobilinogen,Urine < 2.0 mg/dL (<2.0)
[2020-07-29] MEDS ORDERED: cefTRIAXone/NS 1 GM/50 ML 1 GM/50 ML BAG IV ONE (00:19)
[2020-07-29] MEDS ORDERED: HEPARIN 10,000 UNITS/10 ML VIAL IV ONE (00:29)
[2020-07-29 00:46] LABS: INR 1.42 (0.87-1.13)
[2020-07-29 00:47] LABS: Partial Thromboplastin Time 26.2 Sec. (24.2-36.6)
[2020-07-29] MEDS: HEPARIN/ 0.45% NACL DRIP 25,000 UNIT/500 ML BAG IV SCH (01:24)
[2020-07-29] MEDS ORDERED: ACETAMINOPHEN 325 MG TAB PO PRN (01:25)
--- NOTE | 2020-07-29 01:45 | History and Physical Report ---
History of Present Illness Date of examination: 07/29/20 Date of admission: 07/29/2020 Chief complaint: Abdominal pain Nausea and Vomiting History of present illness: 50-year-old -Turk[place] female with significant past medical history of hypertension, kidney stones, history of renal stent in 2018 discharged from this hospital about 24 hours ago for acute pancreatitis secondary to gallstones, status post laparoscopic cholecystectomy with intraoperative cholangiogram on 07/25/2020. She was also found to have left 5 mm ureteral stone on CT scan during the admission. She also had hypercalcemia which was treated with pamidronate and IV fluid. 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 She presents today with nausea and vomiting, abdominal pain. She denies any f ever or chills, no shortness of breath or chest pain, no headache or dizziness. She was discharged home on Sensipar, magnesium and phosphorus but indicates she has not been able to afford the Sensipar because of the cost. Work-up in the emergency room today reveals multiple electrolyte abnormalities including hypokalemia, hypomagnesemia and hypophosphatemia. CT scan of the abdomen and pelvis reveals pancreatitis. Patient was also found to have a nonocclusive splenic vein thrombosis. She is also found to have a UTI for which she has been commenced on empiric IV antibiotics. Vascular surgeon -Dr. Chery, general surgeon-Dr. Oseguera, talent development consultant-Dr. Solis all have been consulted by the ER physician for evaluation and further recommendation. Past History Past Medical History: other (Kidney stones,covid 19 in 02/2020,hyperparathyroidism,mediastinal ectopic parathyroid mass,) Past Surgical History: Other (Renal stent,Laparoscopic cholecystectomy in 07/25/2020) Social history: no significant social history Family history: no significant family history Medications and Allergies Allergies Allergy/AdvReac Type Severity Reaction Status Date / Time No Known Allergies Allergy Verified 12/21/17 16:53 Home Medications Medication Instructions Recorded Confirmed Last Taken Type Magnesium Oxide [Mag-Ox] 400 mg PO QDAY #30 tablet 07/27/20 07/29/20 07/28/20 Rx Active Meds: Active Medications Acetaminophen (Tylenol) 650 mg PO Q4H PRN PRN Reason: Pain MILD(1-3)/Fever >100.5/WILSON Hydromorphone HCl (Dilaudid) 1 mg IV Q3H PRN PRN Reason: Pain , Severe (7-10) Potassium Chloride (Kcl 10meq/100ml) 10 meq in 100 mls @ 100 mls/hr IV Q1H SONIA Stop: 07/29/20 01:44 Last Admin: 07/29/20 00:02 Dose: 100 mls/hr Documented by: Heparin Sodium/Sodium Chloride (Heparin/ 0.45% Nacl-25,000 Unit/500 Ml) 25,000 unit in 500 mls @ 18 mls/hr IV TITR SONIA; Protocol Sodium Chloride (Nacl 0.9% 1000 Ml) 1,000 mls @ 150 mls/hr IV DIRECT SONIA Ceftriaxone Sodium (Rocephin/Ns 1 Gm/50 Ml) 1 gm in 50 mls @ 100 mls/hr IV Q24HR SONIA; Protocol Ondansetron HCl (Zofran) 4 mg IV Q8H PRN PRN Reason: Nausea And Vomiting Sodium Chloride (Sodium Chloride Flush Syringe 10 Ml) 10 ml IV BID SONIA Sodium Chloride (Sodium Chloride Flush Syringe 10 Ml) 10 ml IV PRN PRN PRN Reason: LINE FLUSH Review of Systems Constitutional: no fever, no chills Ears, nose, mouth and throat: no nasal congestion, no sore throat Cardiovascular: no chest pain, no palpitations Respiratory: no cough, no shortness of breath Gastrointestinal: abdominal pain, nausea, vomiting, no BRBPR, no melena Genitourinary Female: no flank pain, no dysuria, no hematuria, no nocturia Musculoskeletal: no neck pain, no low back pain Integumentary: no rash, no pruritis Neurological: no headaches, no confusion Psychiatric: no anxiety, no depression Exam - Constitutional Vitals: Temp Pulse Resp BP Pulse Ox 98.6 F 109 H 16 145/94 99 07/28/20 20:49 07/28/20 23:52 07/28/20 23:52 07/28/20 23:52 07/28/20 23:52 General appearance: Present: no acute distress, well-nourished - EENT Eyes: Present: PERRL, EOM intact. Absent: scleral icterus ENT: hearing intact, clear oral mucosa, dentition normal - Neck Neck: Present: supple, normal ROM - Respiratory Respiratory effort: normal Respiratory: bilateral: CTA - Cardiovascular Rhythm: regular Heart Sounds: Present: S1 & S2. Absent: gallop, systolic murmur, diastolic murmur, rub - Extremities Extremities: no ischemia, pulses intact, pulses symmetrical, No edema, Full ROM Peripheral Pulses: within normal limits - Abdominal General gastrointestinal: Present: soft, tender (Epigastric and periumbilical region), non-distended, normal bowel sounds, other (Multiple scars of recent surgery). Absent: mass - Integumentary Integumentary: Present: clear, warm, dry. Absent: rash - Musculoskeletal Musculoskeletal: strength equal bilaterally - Psychiatric Psychiatric: appropriate mood/affect, intact judgment & insight, memory intact, cooperative - Neurologic Neurologic: CNII-XII intact, no focal deficits, moves all extremities Results - Labs CBC & Chem 7: 07/28/20 21:35 07/28/20 21:35 Labs: Abnormal lab results 07/28/20 07/28/20 07/28/20 Range/Units 21:35 21:35 23:19 MCH 27 L (28-32) pg RDW 21.2 H (13.2-15.2) % Lymph % (Auto) 12.9 L (13.4-35.0) % Lymph # (Auto) 1.0 L (1.2-5.4) K/mm3 Seg Neutrophils % 78.3 H (40.0-70.0) % PT (12.2-14.9) Sec. INR (0.87-1.13) Potassium 3.2 L (3.6-5.0) mmol/L Glucose 117 H (65-100) mg/dL Calcium 10.4 H D (8.4-10.2) mg/dL Phosphorus (2.5-4.5) mg/dL Magnesium 1.30 L (1.7-2.3) mg/dL Albumin 3.3 L (3.9-5) g/dL Lipase 129 H (13-60) units/L Urine WBC (Auto) 52.0 H (0.0-6.0) /HPF 07/28/20 07/29/20 Range/Units 23:51 00:07 MCH (28-32) pg RDW (13.2-15.2) % Lymph % (Auto) (13.4-35.0) % Lymph # (Auto) (1.2-5.4) K/mm3 Seg Neutrophils % (40.0-70.0) % PT 17.3 H (12.2-14.9) Sec. INR 1.42 H (0.87-1.13) Potassium (3.6-5.0) mmol/L Glucose (65-100) mg/dL Calcium (8.4-10.2) mg/dL Phosphorus 1.70 L (2.5-4.5) mg/dL Magnesium (1.7-2.3) mg/dL Albumin (3.9-5) g/dL Lipase (13-60) units/L Urine WBC (Auto) (0.0-6.0) /HPF Assessment and Plan - Patient Problems (1) Acute pancreatitis Current Visit: Yes Status: Acute Plan to address problem: Patient kept n.p.o. we will continue on IV fluid and analgesic medication. (2) Acute thrombosis of splenic vein Current Visit: Yes Status: Acute Plan to address problem: Patient commenced on anticoagulation. (3) Hypercalcemia Current Visit: Yes Status: Acute Plan to address problem: We will continue on IV fluid and monitor chemistry. We will await further evaluation by nephrology. (4) Hypomagnesemia Current Visit: Yes Status: Acute Plan to address problem: Magnesium to be repleted. Will monitor chemistry (5) Hypophosphatemia Current Visit: Yes Status: Acute Plan to address problem: We will replete phosphorus and monitor chemistry (6) Intractable abdominal pain Current Visit: Yes Status: Acute Plan to address problem: Possibly secondary to the pancreatitis and or splenic vein thrombosis. Patient is also status post laparoscopic cholecystectomy. (7) UTI (urinary tract infection) Current Visit: Yes Status: Acute Plan to address problem: Patient placed on empiric IV antibiotics. (8) DVT prophylaxis Current Visit: No Status: Acute Plan to address problem: Patient currently on anticoagulation. (9) Full code status Current Visit: Yes Status: Acute
[2020-07-29] MEDS: HYDROmorphone 1 MG/1 ML INJ IV PRN ×5 (05:19→17:55)
[2020-07-29] MEDS: SODIUM CHLORIDE 0.9% 1000 ML 1,000 ML IV SCH ×2 (05:22→11:49)
[2020-07-29 08:43] LABS: BUN/Creatinine Ratio 6; Blood Urea Nitrogen 5 mg/dL (7-17); Calcium 9.9 mg/dL (8.4-10.2); Hemolysis Index 6
[2020-07-29] MEDS: cefTRIAXone/NS 1 GM/50 ML 1 GM/50 ML BAG IV SCH (11:35)
--- NOTE | 2020-07-29 11:53 | Consultation ---
History of Present Illness - Reason for Consult Consult date: 07/29/20 Splenic Vein Thrombosis Requesting physician: RICHARD SIMPSON - History of Present Illness The patient is a 50-year-old female with a history of kidney stones who was recently admitted to the hospital for gallstone pancreatitis. She underwent a laparoscopic cholecystectomy with intraoperative cholangiogram which revealed no evidence of stones or obstruction. She presented to the emergency room with complaints of right upper quadrant pain. Her work-up revealed a small subcutaneous hematoma at her right upper quadrant port site, a renal calculus obstructing the left ureter with hydronephrosis, persistent but improved pancreatitis, and nonocclusive thrombus within the splenic vein. She denies any nausea, vomiting, or hematemesis. She denies any melena or bright red bleeding per rectum. She has no additional complaints at this time. Past History Past Medical History: other (Kidney stones,covid 19 in 02/2020,hyperparathyroidism,mediastinal ectopic parathyroid mass,) Past Surgical History: Other (Renal stent,Laparoscopic cholecystectomy in 07/25/2020) Social history: no significant social history Family history: no significant family history Medications and Allergies Allergies Allergy/AdvReac Type Severity Reaction Status Date / Time No Known Allergies Allergy Verified 12/21/17 16:53 Home Medications Medication Instructions Recorded Confirmed Last Taken Type Magnesium Oxide [Mag-Ox] 400 mg PO QDAY #30 tablet 07/27/20 07/29/20 07/28/20 Rx Active Meds: Active Medications Acetaminophen (Tylenol) 650 mg PO Q4H PRN PRN Reason: Pain MILD(1-3)/Fever >100.5/WILSON Cinacalcet (Sensipar) 60 mg PO QDAY SONIA Hydromorphone HCl (Dilaudid) 1 mg IV Q3H PRN PRN Reason: Pain , Severe (7-10) Last Admin: 07/29/20 11:36 Dose: 1 mg Documented by: Heparin Sodium/Sodium Chloride (Heparin/ 0.45% Nacl-25,000 Unit/500 Ml) 25,000 unit in 500 mls @ 18 mls/hr IV TITR SONIA; Protocol Last Titration: 07/29/20 09:02 Dose: 1,050 units/hr, 21 mls/hr Documented by: Sodium Chloride (Nacl 0.9% 1000 Ml) 1,000 mls @ 150 mls/hr IV DIRECT SONIA Last Admin: 07/29/20 11:49 Dose: 150 mls/hr Documented by: Ceftriaxone Sodium (Rocephin/Ns 1 Gm/50 Ml) 1 gm in 50 mls @ 100 mls/hr IV Q24HR SONAI; Protocol Last Admin: 07/29/20 11:35 Dose: 100 mls/hr Documented by: Ondansetron HCl (Zofran) 4 mg IV Q8H PRN PRN Reason: Nausea And Vomiting Sodium Chloride (Sodium Chloride Flush Syringe 10 Ml) 10 ml IV BID SONIA Sodium Chloride (Sodium Chloride Flush Syringe 10 Ml) 10 ml IV PRN PRN PRN Reason: LINE FLUSH Review of Systems All systems: negative Exam - Constitutional Vitals: Temp Pulse Resp BP Pulse Ox 98.6 F 109 H 16 145/94 99 07/28/20 20:49 07/29/20 04:33 07/29/20 04:33 07/28/20 23:52 07/29/20 04:33 General appearance: Present: no acute distress - Neck Neck: Present: supple - Respiratory Respiratory effort: normal - Cardiovascular Rhythm: regular - Extremities Extremities: no ischemia, pulses intact - Abdominal General gastrointestinal: Present: soft, tender (Tender to palpation periincisional with ecchymosis near the right upper quadrant port site, no evidence of peritonitis), distended (Mildly distended) - Rectal Rectal Exam: deferred Results - Labs CBC & Chem 7: 07/28/20 21:35 07/29/20 08:11 Labs: Abnormal lab results 07/28/20 07/28/20 07/28/20 Range/Units 21:35 21:35 23:19 MCH 27 L (28-32) pg RDW 21.2 H (13.2-15.2) % Lymph % (Auto) 12.9 L (13.4-35.0) % Lymph # (Auto) 1.0 L (1.2-5.4) K/mm3 Seg Neutrophils % 78.3 H (40.0-70.0) % PT (12.2-14.9) Sec. INR (0.87-1.13) Heparin Anti-Xa Level (0.3-0.7) U.I./ml Potassium 3.2 L (3.6-5.0) mmol/L Chloride (98-107) mmol/L BUN (7-17) mg/dL Glucose 117 H (65-100) mg/dL Calcium 10.4 H D (8.4-10.2) mg/dL Phosphorus (2.5-4.5) mg/dL Magnesium 1.30 L (1.7-2.3) mg/dL Albumin 3.3 L (3.9-5) g/dL Lipase 129 H (13-60) units/L Urine WBC (Auto) 52.0 H (0.0-6.0) /HPF 07/28/20 07/29/20 07/29/20 Range/Units 23:51 00:07 08:11 MCH (28-32) pg RDW (13.2-15.2) % Lymph % (Auto) (13.4-35.0) % Lymph # (Auto) (1.2-5.4) K/mm3 Seg Neutrophils % (40.0-70.0) % PT 17.3 H (12.2-14.9) Sec. INR 1.42 H (0.87-1.13) Heparin Anti-Xa Level 0.10 L (0.3-0.7) U.I./ml Potassium (3.6-5.0) mmol/L Chloride (98-107) mmol/L BUN (7-17) mg/dL Glucose (65-100) mg/dL Calcium (8.4-10.2) mg/dL Phosphorus 1.70 L (2.5-4.5) mg/dL Magnesium (1.7-2.3) mg/dL Albumin (3.9-5) g/dL Lipase (13-60) units/L Urine WBC (Auto) (0.0-6.0) /HPF 07/29/20 Range/Units 08:11 MCH (28-32) pg RDW (13.2-15.2) % Lymph % (Auto) (13.4-35.0) % Lymph # (Auto) (1.2-5.4) K/mm3 Seg Neutrophils % (40.0-70.0) % PT (12.2-14.9) Sec. INR (0.87-1.13) Heparin Anti-Xa Level (0.3-0.7) U.I./ml Potassium (3.6-5.0) mmol/L Chloride 112.5 H (98-107) mmol/L BUN 5 L (7-17) mg/dL Glucose (65-100) mg/dL Calcium (8.4-10.2) mg/dL Phosphorus 1.50 L (2.5-4.5) mg/dL Magnesium (1.7-2.3) mg/dL Albumin (3.9-5) g/dL Lipase (13-60) units/L Urine WBC (Auto) (0.0-6.0) /HPF - Imaging and Cardiology CT scan - abdomen: image reviewed Assessment and Plan The patient is a 50-year-old female who initially presented with acute gallstone pancreatitis. She represented to the emergency department with complaints of right upper quadrant abdominal pain and her work-up revealed acute nonocclusive thrombus within the splenic vein. The patient has no evidence of retained gallstones within the common bile duct and CT scan suggest improvement of her acute pancreatitis. Her thrombus is nonocclusive and is known complication of pancreatitis. Would recommend continuing the anticoagulation with heparin drip and converting her to oral anticoagulation with a DOAC, such as Eliquis 5 mg BID, for a minimum of 3 months. Recent studies have demonstrated improved efficacy and safety of DOACs for the treatment of acute noncirrhotic portal vein thrombosis (with or without concurrent involvement of other splanchnic veins) as compared to Warfarin.
--- NOTE | 2020-07-29 14:36 | Consultation ---
History of Present Illness - Reason for Consult Consult date: 07/29/20 other (Hypercalcemia) Requesting physician: RICHARD SIMPSON - History of Present Illness The patient is a 50 YO female who is known to our service with history significant for HTN, Renal stones, Hyperparathyroidism 2/2 mediastinal parathyroid mass, recent Cholecystectomy and medical non-compliance who presented to [facility] ED 07/28 with complaints of nausea, vomiting and abdominal pain. She was discharged from this hospital on 07/27 for acute pancreatitis secondary to gallstones, status post laparoscopic cholecystectomy with intraoperative cholangiogram on 07/25/2020. The pain is at R UQ, constant, sharp and not radiating. Patient denies any fever, chills, shortness of breath, chest pain, melena, rectal bleeding, headache or dizziness. She was discharged home on Sensipar but indicates she has not been able to afford the Sensipar because of the cost. Work-up in the emergency room today reveals multiple electrolyte abnormalities including hypercalcemia, hypokalemia, hypomagnesemia and hypophosphatemia. CT scan of the abdomen and pelvis reveals pancreatitis. UA suggestive of UTI for which she has been commenced on empiric IV antibiotics. Nephrology was consulted for further evaluation. Past History Past Medical History: other (Kidney stones,covid 19 in 02/2020,hyperparathyroidism,mediastinal ectopic parathyroid mass,) Past Surgical History: Other (Renal stent,Laparoscopic cholecystectomy in 07/25/2020) Social history: no significant social history Family history: no significant family history Medications and Allergies Allergies Allergy/AdvReac Type Severity Reaction Status Date / Time No Known Allergies Allergy Verified 12/21/17 16:53 Home Medications Medication Instructions Recorded Confirmed Last Taken Type Magnesium Oxide [Mag-Ox] 400 mg PO QDAY #30 tablet 07/27/20 07/29/20 07/28/20 Rx Active Meds: Active Medications Acetaminophen (Tylenol) 650 mg PO Q4H PRN PRN Reason: Pain MILD(1-3)/Fever >100.5/WILSON Cinacalcet (Sensipar) 60 mg PO QDAY SONIA Hydromorphone HCl (Dilaudid) 1 mg IV Q3H PRN PRN Reason: Pain , Severe (7-10) Last Admin: 07/29/20 11:36 Dose: 1 mg Documented by: Heparin Sodium/Sodium Chloride (Heparin/ 0.45% Nacl-25,000 Unit/500 Ml) 25,000 unit in 500 mls @ 18 mls/hr IV TITR SONIA; Protocol Last Titration: 07/29/20 09:02 Dose: 1,050 units/hr, 21 mls/hr Documented by: Sodium Chloride (Nacl 0.9% 1000 Ml) 1,000 mls @ 150 mls/hr IV DIRECT SONIA Last Admin: 07/29/20 11:49 Dose: 150 mls/hr Documented by: Ceftriaxone Sodium (Rocephin/Ns 1 Gm/50 Ml) 1 gm in 50 mls @ 100 mls/hr IV Q24HR SONIA; Protocol Last Admin: 07/29/20 11:35 Dose: 100 mls/hr Documented by: Ondansetron HCl (Zofran) 4 mg IV Q8H PRN PRN Reason: Nausea And Vomiting Sodium Chloride (Sodium Chloride Flush Syringe 10 Ml) 10 ml IV BID SONIA Last Admin: 07/29/20 11:53 Dose: 10 ml Documented by: Sodium Chloride (Sodium Chloride Flush Syringe 10 Ml) 10 ml IV PRN PRN PRN Reason: LINE FLUSH Exam - Vital Signs Vital signs: Vital Signs Temp Pulse Resp BP Pulse Ox 98.6 F 133 H 16 117/88 100 07/28/20 20:49 07/28/20 20:49 07/28/20 20:49 07/28/20 20:49 07/28/20 20:49 Results - Lab Results 07/28/20 21:35 07/29/20 08:11 Most recent lab results Calcium 9.9 mg/dL (8.4-10.2) 07/29/20 08:11 Phosphorus 1.50 mg/dL (2.5-4.5) L 07/29/20 08:11 Magnesium 1.70 mg/dL (1.7-2.3) 07/29/20 08:11 Assessment and Plan 1. 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 Continue IV fluids. Started On Sensipar. Monitor Calcium level, improved now. 2. FEN: Replete K and Phos. Monitor lytes and volume status. 3. Acute pancreatitis: Resolving. S/p Lap cholecystectomy w/ intraoperative cholangiogram 07/25. Followed by Gen. Surgery. 4. Splenic vein thrombosis: Heparin drip. Seen by Vascular. 5. L nephrolithiasis with mild hydro: Continue Abx. Normal Renal function. Monitor. 6. Hypertension. 7. Medical non-compliance. Subjective: Patient was seen and examined at the bedside. Examination: General appearance: well-developed, well-nourished, appears stated age, no distress HEENT: ATNC, hearing intact Neck: trachea midline, supple Respiratory: ctab Heart: regular, S1S2, no murmur Gastrointestinal: soft, normoactive bowel sounds, not tender Integumentary: no rash, warm and dry Neurologic: alert, oriented, moving extremities Ext: no edema
--- NOTE | 2020-07-29 16:29 | Consultation ---
History of Present Illness Consult date: 07/29/20 Reason for consult: abdominal pain - History of present illness History of present illness: 50 female who is POD#4 s/p uncomplicated lap hermilo with IOC. She was discharged two later after correction of her electrolytes. She returned to the ED with complaints of abdominal pain. She had a ct scan that showed a non-occlusive splenic vein thrombus, and a hematoma in her abdominal wall at her port/gallbladder extraction site. She was started on a heparin drip. She also complained of some n/v. When I saw her today after she was admitted she says that the reason she came back is because she could not afford the medication that was prescribed to her. She says that she currently does not have much pain and is hungry for some fruit. Past History Past Medical History: other (Kidney stones,covid 19 in 02/2020,hyperparathyroidism,mediastinal ectopic parathyroid mass,) Past Surgical History: cholecystectomy, Other (Renal stent,Laparoscopic cholecystectomy in 07/25/2020) Social history: no significant social history Family history: no significant family history Medications and Allergies Allergies Allergy/AdvReac Type Severity Reaction Status Date / Time No Known Allergies Allergy Verified 12/21/17 16:53 Home Medications Medication Instructions Recorded Confirmed Last Taken Type Magnesium Oxide [Mag-Ox] 400 mg PO QDAY #30 tablet 07/27/20 07/29/20 07/28/20 Rx Active Meds: Active Medications Acetaminophen (Tylenol) 650 mg PO Q4H PRN PRN Reason: Pain MILD(1-3)/Fever >100.5/WILSON Cinacalcet (Sensipar) 60 mg PO QDAY SONIA Hydromorphone HCl (Dilaudid) 1 mg IV Q3H PRN PRN Reason: Pain , Severe (7-10) Last Admin: 07/29/20 14:57 Dose: 1 mg Documented by: Heparin Sodium/Sodium Chloride (Heparin/ 0.45% Nacl-25,000 Unit/500 Ml) 25,000 unit in 500 mls @ 18 mls/hr IV TITR SONIA; Protocol Last Titration: 07/29/20 09:02 Dose: 1,050 units/hr, 21 mls/hr Documented by: Sodium Chloride (Nacl 0.9% 1000 Ml) 1,000 mls @ 150 mls/hr IV DIRECT SONIA Last Admin: 11/24/20 11:49 Dose: 150 mls/hr Documented by: Ceftriaxone Sodium (Rocephin/Ns 1 Gm/50 Ml) 1 gm in 50 mls @ 100 mls/hr IV Q24HR [facility]; Protocol Last Admin: 07/29/20 11:35 Dose: 100 mls/hr Documented by: Ondansetron HCl (Zofran) 4 mg IV Q8H PRN PRN Reason: Nausea And Vomiting Sodium Chloride (Sodium Chloride Flush Syringe 10 Ml) 10 ml IV BID [facility] Last Admin: 07/29/20 11:53 Dose: 10 ml Documented by: Sodium Chloride (Sodium Chloride Flush Syringe 10 Ml) 10 ml IV PRN PRN PRN Reason: LINE FLUSH Review of Systems - Cardiovascular no chest pain - Respiratory no cough - Gastrointestinal abdominal pain, nausea Exam Vital Signs Temp Pulse Resp BP Pulse Ox 98.6 F 133 H 16 117/88 100 07/28/20 20:49 07/28/20 20:49 07/28/20 20:49 07/28/20 20:49 07/28/20 20:49 - General physical appearance Positive: well developed, no distress, no pain - Respiratory Positive: normal expansion, normal respiratory effort - Cardiovascular Heart Sounds: Present: S1 & S2 - Abdomen Abdomen: Present: other (protuberent, incisions c/d/i with ecchymosis around epigastric port. soft and appropriatley tender to palpation) Results - Labs 07/28/20 21:35 07/29/20 08:11 Abnormal lab results 07/28/20 07/28/20 07/28/20 Range/Units 21:35 21:35 23:19 MCH 27 L (28-32) pg RDW 21.2 H (13.2-15.2) % Lymph % (Auto) 12.9 L (13.4-35.0) % Lymph # (Auto) 1.0 L (1.2-5.4) K/mm3 Seg Neutrophils % 78.3 H (40.0-70.0) % PT (12.2-14.9) Sec. INR (0.87-1.13) Heparin Anti-Xa Level (0.3-0.7) U.I./ml Potassium 3.2 L (3.6-5.0) mmol/L Chloride (98-107) mmol/L BUN (7-17) mg/dL Glucose 117 H (65-100) mg/dL Calcium 10.4 H D (8.4-10.2) mg/dL Phosphorus (2.5-4.5) mg/dL Magnesium 1.30 L (1.7-2.3) mg/dL Albumin 3.3 L (3.9-5) g/dL Lipase 129 H (13-60) units/L Urine WBC (Auto) 52.0 H (0.0-6.0) /HPF 07/28/20 07/29/20 07/29/20 Range/Units 23:51 00:07 08:11 MCH (28-32) pg RDW (13.2-15.2) % Lymph % (Auto) (13.4-35.0) % Lymph # (Auto) (1.2-5.4) K/mm3 Seg Neutrophils % (40.0-70.0) % PT 17.3 H (12.2-14.9) Sec. INR 1.42 H (0.87-1.13) Heparin Anti-Xa Level 0.10 L (0.3-0.7) U.I./ml Potassium (3.6-5.0) mmol/L Chloride (98-107) mmol/L BUN (7-17) mg/dL Glucose (65-100) mg/dL Calcium (8.4-10.2) mg/dL Phosphorus 1.70 L (2.5-4.5) mg/dL Magnesium (1.7-2.3) mg/dL Albumin (3.9-5) g/dL Lipase (13-60) units/L Urine WBC (Auto) (0.0-6.0) /HPF 07/29/20 Range/Units 08:11 MCH (28-32) pg RDW (13.2-15.2) % Lymph % (Auto) (13.4-35.0) % Lymph # (Auto) (1.2-5.4) K/mm3 Seg Neutrophils % (40.0-70.0) % PT (12.2-14.9) Sec. INR (0.87-1.13) Heparin Anti-Xa Level (0.3-0.7) U.I./ml Potassium (3.6-5.0) mmol/L Chloride 112.5 H (98-107) mmol/L BUN 5 L (7-17) mg/dL Glucose (65-100) mg/dL Calcium (8.4-10.2) mg/dL Phosphorus 1.50 L (2.5-4.5) mg/dL Magnesium (1.7-2.3) mg/dL Albumin (3.9-5) g/dL Lipase (13-60) units/L Urine WBC (Auto) (0.0-6.0) /HPF Diabetes panel 07/28/20 07/29/20 Range/Units 21:35 08:11 Sodium 140 145 (137-145) mmol/L Potassium 3.2 L 3.6 (3.6-5.0) mmol/L Chloride 103.4 112.5 H (98-107) mmol/L Carbon Dioxide 27 22 (22-30) mmol/L BUN 7 5 L (7-17) mg/dL Creatinine 0.9 0.9 (0.6-1.2) mg/dL Glucose 117 H 94 (65-100) mg/dL Calcium 10.4 H D 9.9 (8.4-10.2) mg/dL AST 12 (5-40) units/L ALT 13 (7-56) units/L Alkaline Phosphatase 110 (35-129) units/L Total Protein 6.8 (6.3-8.2) g/dL Albumin 3.3 L (3.9-5) g/dL Calcium panel 07/28/20 07/28/20 07/29/20 Range/Units 21:35 23:51 08:11 Calcium 10.4 H D 9.9 (8.4-10.2) mg/dL Phosphorus 1.70 L 1.50 L (2.5-4.5) mg/dL Albumin 3.3 L (3.9-5) g/dL Pituitary panel 07/28/20 07/29/20 Range/Units 21:35 08:11 Sodium 140 145 (137-145) mmol/L Potassium 3.2 L 3.6 (3.6-5.0) mmol/L Chloride 103.4 112.5 H (98-107) mmol/L Carbon Dioxide 27 22 (22-30) mmol/L BUN 7 5 L (7-17) mg/dL Creatinine 0.9 0.9 (0.6-1.2) mg/dL Glucose 117 H 94 (65-100) mg/dL Calcium 10.4 H D 9.9 (8.4-10.2) mg/dL Adrenal panel 07/28/20 07/29/20 Range/Units 21:35 08:11 Sodium 140 145 (137-145) mmol/L Potassium 3.2 L 3.6 (3.6-5.0) mmol/L Chloride 103.4 112.5 H (98-107) mmol/L Carbon Dioxide 27 22 (22-30) mmol/L BUN 7 5 L (7-17) mg/dL Creatinine 0.9 0.9 (0.6-1.2) mg/dL Glucose 117 H 94 (65-100) mg/dL Calcium 10.4 H D 9.9 (8.4-10.2) mg/dL Total Bilirubin 0.50 (0.1-1.2) mg/dL AST 12 (5-40) units/L ALT 13 (7-56) units/L Alkaline Phosphatase 110 (35-129) units/L Total Protein 6.8 (6.3-8.2) g/dL Albumin 3.3 L (3.9-5) g/dL - Imaging CT scan - abdomen: report reviewed, image reviewed CT scan - pelvis: report reviewed, image reviewed Assessment and Plan POd#4 s/p lap hermilo for gallstone pancreatitis. Afebrile and stable Abdominal pain likely due to resolving residual pancreatitis and intra-abdominal wall hematoma at port site. No signs or findings c/w bile leak or other complications after lap hermilo. No surgical intervention indicated. Can be started on diet from general surgery perspective. Vascular is seeing patient for splenic vein thrombosis and made recommendations. Started on heparin drip. Hypercalcemia due to ectopic parathyroid and other electrolyte derangements continue correction.
[2020-07-29] MEDS ORDERED: POTASSIUM PHOSPHATE 40 MMOL in SODIUM CHLORIDE 0.9% 500 ML 500 ML IV ONE (16:40)
[2020-07-29] MEDS: CINACALCET 30 MG TAB PO SCH (16:43)
[2020-07-29] MEDS ORDERED: METOCLOPRAMIDE 10 MG/2 ML INJ IV PRN (17:11)
[2020-07-30] MEDS: HYDROmorphone 1 MG/1 ML INJ IV PRN ×5 (01:37→23:24)
[2020-07-30] MEDS: HEPARIN/ 0.45% NACL DRIP 25,000 UNIT/500 ML BAG IV SCH ×2 (05:03→23:23)
[2020-07-30 06:23] LABS: Basophils % (Auto) 0.7 % (0.0-1.8); Eosinophils # (Auto) 0.1 K/mm3 (0.0-0.4); Eosinophils % (Auto) 1.9 % (0.0-4.3); Hematocrit 31.7 % (30.3-42.9); Hemoglobin 10.2 gm/dl (10.1-14.3); Lymphocytes # (Auto) 1.3 K/mm3 (1.2-5.4); Mean Corpuscular HGB Conc 32 % (30-34); Mean Corpuscular Volume 83 fl (79-97); Monocytes # (Auto) 0.5 K/mm3 (0.0-0.8); Monocytes % (Auto) 7.7 % (0.0-7.3); Platelet Count 281 K/mm3 (140-440); Red Blood Count 3.83 M/mm3 (3.65-5.03)
[2020-07-30 06:28] LABS: Red Cell Distribution Width 21.3 % (13.2-15.2)
[2020-07-30 06:30] LABS: BUN/Creatinine Ratio 6; Blood Urea Nitrogen 5 mg/dL (7-17); Calcium 9.7 mg/dL (8.4-10.2); Hemolysis Index 1
[2020-07-30 06:34] LABS: INR 1.36 (0.87-1.13)
[2020-07-30] MEDS: CINACALCET 30 MG TAB PO SCH (10:06)
[2020-07-30] MEDS: cefTRIAXone/NS 1 GM/50 ML 1 GM/50 ML BAG IV SCH (10:07)
[2020-07-30] MEDS: SODIUM CHLORIDE 0.9% 1000 ML 1,000 ML IV SCH ×2 (10:15→23:23)
[2020-07-30] MEDS: ONDANSETRON 4 MG/2 ML INJ IV PRN ×2 (10:18→20:19)
[2020-07-30] MEDS ORDERED: MAGNESIUM SULFATE 4 GM/100 ML BAG IV ONE (11:07)
--- NOTE | 2020-07-30 12:31 | Progress Note ---
Assessment and Plan Assessment and plan #1 Gallstone pancreatitis Still in severe pain Will continue clear liquids #2 splenic vein thrombosis Partially occluded Vascular surgery recommended IV heparin followed by [facility] Patient still in severe pain Probable discharge tomorrow on Eliquis #3 hypophosphatemia K-Phos supplemented Recheck labs tomorrow #4 hypomagnesemia IV magnesium supplemented #5 DVT prophylaxis Patient not on heparin because of increased INR SCDs only Discharge discharge planning issues Patient changed to inpatient status because of the persistent abdominal pain splenic vein thrombosis on heparin drip and pancreatitis which is gallstone induced and electrolyte abnormalities. Subjective Date of service: 07/30/20 Principal diagnosis: Abdominal pain for 2 days Interval history: S/p laparoscopic cholecystectomy on 07/25/2020--comes in for severe abdominal pain- 50-year-old -[place] female with significant past medical history of hypertension, kidney stones, history of renal stent in 2018 discharged from this hospital about 24 hours ago for acute pancreatitis secondary to gallstones, status post laparoscopic cholecystectomy with intraoperative cholangiogram on 07/25/2020. She was also found to have left 5 mm ureteral stone on CT scan during the admission. She also had hypercalcemia which was treated with pamidronate and IV fluid. She is known to have an ectopic parathyroid mass in the mediastinum with subsequent referral to [facility] for follow- up. She presents today with nausea and vomiting, abdominal pain. She denies any fever or chills, no shortness of breath or chest pain, no headache or dizziness. She was discharged home on Sensipar, magnesium and phosphorus but indicates she has not been able to afford the Sensipar because of the cost. Work-up in the emergency room today reveals multiple electrolyte abnormalities including hypokalemia, hypomagnesemia and hypophosphatemia. CT scan of the abdomen and pelvis reveals pancreatitis. Patient was also found to have a nonocclusive splenic vein thrombosis. She is also found to have a UTI for which she has been commenced on empiric IV antibiotics. Vascular surgeon -Dr. Chery, general surgeon-Dr. Oseguera, broacher-Dr. Solis all have been consulted by the ER physician for evaluation and further recommendation. Patient also has nonocclusive splenic vein thrombosis which may be the cause of pain Objective - Constitutional Vitals: Vital Signs - 12hr 07/30/20 07/30/20 07/30/20 00:36 01:37 01:38 Pulse Rate Respiratory 20 20 20 Rate Blood Pressure [Left] 07/30/20 07/30/20 01:42 02:07 Pulse Rate 114 H Respiratory 20 Rate Blood Pressure 144/103 [Left] General appearance: Present: no acute distress, well-nourished - EENT Eyes: PERRL, EOM intact ENT: hearing intact, clear oral mucosa Ears: bilateral: normal - Neck Neck: supple, normal ROM - Respiratory Respiratory effort: normal Respiratory: bilateral: CTA - Breasts Breasts: deferred, normal - Cardiovascular Heart rate: 78 Rhythm: regular Heart Sounds: Present: S1 & S2. Absent: gallop, rub Extremities: pulses intact, No edema, normal color, Full ROM - Gastrointestinal General gastrointestinal: Present: soft, non-tender, non-distended, normal bowel sounds Localized gastrointestinal: tender: diffuse Rectal Exam: deferred - Genitourinary Female genitourinary: normal - Integumentary Integumentary: clear, warm, dry - Musculoskeletal Musculoskeletal: 1, strength equal bilaterally - Neurologic Neurologic: moves all extremities - Psychiatric Psychiatric: memory intact, appropriate mood/affect, intact judgment & insight - Labs CBC & Chem 7: 07/30/20 04:34 07/30/20 04:34 Labs: Abnormal lab results 07/29/20 07/29/20 07/30/20 Range/Units 14:46 20:57 04:34 MCH 27 L (28-32) pg RDW 21.3 H (13.2-15.2) % [place] % (Auto) 7.7 H (0.0-7.3) % Seg Neutrophils % 70.7 H (40.0-70.0) % PT (12.2-14.9) Sec. INR (0.87-1.13) Heparin Anti-Xa Level 0.16 L 0.16 L (0.3-0.7) U.I./ml BUN (7-17) mg/dL Phosphorus (2.5-4.5) mg/dL Magnesium (1.7-2.3) mg/dL 07/30/20 07/30/20 Range/Units 04:34 04:34 MCH (28-32) pg RDW (13.2-15.2) % [place] % (Auto) (0.0-7.3) % Seg Neutrophils % (40.0-70.0) % PT 16.8 H (12.2-14.9) Sec. INR 1.36 H (0.87-1.13) Heparin Anti-Xa Level < 0.10 L (0.3-0.7) U.I./ml BUN 5 L (7-17) mg/dL Phosphorus 2.30 L D (2.5-4.5) mg/dL Magnesium 1.20 L (1.7-2.3) mg/dL
[2020-07-30] MEDS ORDERED: MAGNESIUM SULFATE 2 GM/50 ML BAG IV ONE (13:00)
[2020-07-30] MEDS: K-PHOS NEUTRAL 250 MG TAB PO SCH ×4 (13:14→23:24)
--- NOTE | 2020-07-30 15:09 | Progress Note ---
Assessment and Plan 1. 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 Continue IV fluids. Started On Sensipar. Monitor Calcium level, improved now. 2. FEN: Replete Mg and Phos. Monitor lytes and volume status. 3. Acute pancreatitis: Resolving. S/p Lap cholecystectomy w/ intraoperative cholangiogram 07/25. Seen by Gen. Surgery. 4. Splenic vein thrombosis: Heparin drip. Seen by Vascular. 5. L nephrolithiasis with mild hydro: Continue Abx. Normal Renal function. Monitor. Outpatient f/u with Urologist. 6. Hypertension. 7. Medical non-compliance. Subjective: Patient was seen and examined at the bedside. Examination: General appearance: well-developed, well-nourished, appears stated age, no dis tress HEENT: ATNC, hearing intact Neck: trachea midline, supple Respiratory: ctab Heart: regular, S1S2, no murmur Gastrointestinal: soft, normoactive bowel sounds, not tender Integumentary: no rash, warm and dry Neurologic: alert, oriented, moving extremities Ext: no edema Subjective Date of service: 07/30/20 Principal diagnosis: Abdominal pain for 2 days Objective - Vital Signs Vital signs: Vital Signs - 12hr 07/30/20 07/30/20 10:23 11:19 Temperature 99.0 F Pulse Rate 97 H 109 H Respiratory 18 Rate Blood Pressure 147/85 148/97 O2 Sat by Pulse 99 99 Oximetry - Lab 07/30/20 04:34 07/30/20 04:34 Most recent lab results Calcium 9.7 mg/dL (8.4-10.2) 07/30/20 04:34 Phosphorus 2.30 mg/dL (2.5-4.5) L D 07/30/20 04:34 Magnesium 1.20 mg/dL (1.7-2.3) L 07/30/20 04:34 Medications & Allergies - Medications Allergies/Adverse Reactions: Allergies No Known Allergies Allergy (Verified 12/21/17 16:53) Home Medications: Home Medications Medication Instructions Recorded Confirmed Last Taken Type Magnesium Oxide [Mag-Ox] 400 mg PO QDAY #30 tablet 07/27/20 07/29/20 07/28/20 Rx Active Medications: Generic Name Dose Route Start Last Admin Trade Name Freq PRN Reason Stop Dose Admin Acetaminophen 650 mg 07/29/20 01:25 07/30/20 01:38 Tylenol PO 650 mg Q4H PRN Administration Pain MILD(1-3)/Fever >100.5/WILSON Cinacalcet 60 mg 07/29/20 10:00 07/30/20 10:06 Sensipar PO 60 mg QDAY SONIA Administration Hydromorphone HCl 1 mg 07/29/20 17:30 07/30/20 14:40 Dilaudid IV 1 mg Q2H PRN Administration Pain , Severe (7-10) Heparin Sodium/Sodium Chloride 25,000 unit in 500 mls @ 18 mls/hr 07/29/20 01:00 07/30/20 07:11 Heparin/ 0.45% Nacl-25,000 Unit/500 Ml IV 1,400 units/hr TITR SONIA 28 mls/hr Titration Protocol 900 UNITS/HR Sodium Chloride 1,000 mls @ 150 mls/hr 07/29/20 01:30 07/30/20 10:15 Nacl 0.9% 1000 Ml IV 150 mls/hr DIRECT SONIA Administration Ceftriaxone Sodium 1 gm in 50 mls @ 100 mls/hr 07/29/20 10:00 07/30/20 10:07 Rocephin/Ns 1 Gm/50 Ml IV 100 mls/hr Q24HR SONIA Administration Protocol Metoclopramide HCl 10 mg 07/29/20 17:11 Reglan IV Q6H PRN Nausea And Vomiting Ondansetron HCl 4 mg 07/29/20 01:25 07/30/20 10:18 Zofran IV 4 mg Q8H PRN Administration Nausea And Vomiting Sodium Chloride 10 ml 07/29/20 10:00 07/30/20 10:07 Sodium Chloride Flush Syringe 10 Ml IV 10 ml BID SONIA Administration Sodium Chloride 10 ml 07/29/20 01:25 Sodium Chloride Flush Syringe 10 Ml IV PRN PRN LINE FLUSH Sodium Phosphate 500 mg 07/30/20 12:00 07/30/20 14:40 K-Phos Neutral PO 07/30/20 22:01 500 mg Q4HR SONIA Administration
[2020-07-31] MEDS: SODIUM CHLORIDE 0.9% 1000 ML 1,000 ML IV SCH ×2 (06:03→13:25)
[2020-07-31] MEDS: HYDROmorphone 1 MG/1 ML INJ IV PRN ×4 (06:04→20:10)
[2020-07-31 06:23] LABS: Hematocrit 31.4 % (30.3-42.9)
[2020-07-31 06:51] LABS: Blood Urea Nitrogen 4 mg/dL (7-17); Calcium 9.3 mg/dL (8.4-10.2); Hemolysis Index 4
[2020-07-31 06:57] LABS: BUN/Creatinine Ratio 6
[2020-07-31] MEDS: cefTRIAXone/NS 1 GM/50 ML 1 GM/50 ML BAG IV SCH (10:27)
[2020-07-31] MEDS: CINACALCET 30 MG TAB PO SCH (10:27)
[2020-07-31] MEDS ORDERED: POTASSIUM PHOSPHATE 40 MMOL in SODIUM CHLORIDE 0.9% 500 ML 500 ML IV ONE (13:27)
--- NOTE | 2020-07-31 13:27 | Progress Note ---
Assessment and Plan 1. 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 On Sensipar. Monitor Calcium level, improved now. 2. FEN: Replete K and Phos. Monitor lytes and volume status. 3. Acute pancreatitis: Resolving. S/p Lap cholecystectomy w/ intraoperative cholangiogram 07/25. Seen by Gen. Surgery. 4. Splenic vein thrombosis: Heparin drip. Seen by Vascular. 5. L nephrolithiasis with mild hydro: Continue Abx. Normal Renal function. Monitor. Outpatient f/u with Urologist. 6. Hypertension: Stop IV fluids. Started on Metoprolol. 7. Medical non-compliance. Subjective: Patient was seen and examined at the bedside. Eating ok. No vomiting. Examination: General appearance: well-developed, well-nourished, appears stated age, no distress HEENT: ATNC, hearing intact Neck: trachea midline, supple Respiratory: ctab Heart: regular, S1S2, no murmur Gastrointestinal: soft, normoactive bowel sounds, not tender Integumentary: no rash, warm and dry Neurologic: alert, oriented, moving extremities Ext: no edema Subjective Date of service: 07/31/20 Principal diagnosis: Abdominal pain for 2 days Objective - Vital Signs Vital signs: Vital Signs - 12hr 07/31/20 07/31/20 06:11 11:05 Temperature 98.1 F 99.3 F Pulse Rate 117 H 102 H Respiratory 24 20 Rate Blood Pressure 134/108 142/103 O2 Sat by Pulse 100 98 Oximetry - Lab 07/31/20 04:23 07/31/20 04:23 Most recent lab results Calcium 9.3 mg/dL (8.4-10.2) 07/31/20 04:23 Phosphorus 1.50 mg/dL (2.5-4.5) L D 07/31/20 04:23 Magnesium 2.00 mg/dL (1.7-2.3) 07/31/20 04:23 Medications & Allergies - Medications Allergies/Adverse Reactions: Allergies No Known Allergies Allergy (Verified 12/21/17 16:53) Home Medications: Home Medications Medication Instructions Recorded Confirmed Last Taken Type Magnesium Oxide [Mag-Ox] 400 mg PO QDAY #30 tablet 07/27/20 07/29/20 07/28/20 Rx Active Medications: Generic Name Dose Route Start Last Admin Trade Name Freq PRN Reason Stop Dose Admin Acetaminophen 650 mg 07/29/20 01:25 07/30/20 01:38 Tylenol PO 650 mg Q4H PRN Administration Pain MILD(1-3)/Fever >100.5/WILSON Cinacalcet 60 mg 07/29/20 10:00 07/31/20 10:27 Sensipar PO 60 mg QDAY SONIA Administration Hydromorphone HCl 1 mg 07/29/20 17:30 07/31/20 10:27 Dilaudid IV 1 mg Q2H PRN Administration Pain , Severe (7-10) Heparin Sodium/Sodium Chloride 25,000 unit in 500 mls @ 18 mls/hr 07/29/20 01:00 07/31/20 12:58 Heparin/ 0.45% Nacl-25,000 Unit/500 Ml IV 1,650 units/hr TITR SONIA 33 mls/hr Titration Protocol 900 UNITS/HR Sodium Chloride 1,000 mls @ 150 mls/hr 07/29/20 01:30 07/31/20 13:25 Nacl 0.9% 1000 Ml IV 150 mls/hr DIRECT SONIA Administration Ceftriaxone Sodium 1 gm in 50 mls @ 100 mls/hr 07/29/20 10:00 07/31/20 10:27 Rocephin/Ns 1 Gm/50 Ml IV 08/02/20 10:29 100 mls/hr Q24HR SONIA Administration Protocol Metoclopramide HCl 10 mg 07/29/20 17:11 Reglan IV Q6H PRN Nausea And Vomiting Ondansetron HCl 4 mg 07/29/20 01:25 07/30/20 20:19 Zofran IV 4 mg Q8H PRN Administration Nausea And Vomiting Sodium Chloride 10 ml 07/29/20 10:00 07/31/20 10:28 Sodium Chloride Flush Syringe 10 Ml IV 10 ml BID SONIA Administration Sodium Chloride 10 ml 07/29/20 01:25 Sodium Chloride Flush Syringe 10 Ml IV PRN PRN LINE FLUSH
[2020-07-31] MEDS: K-PHOS NEUTRAL 250 MG TAB PO SCH ×3 (13:46→22:38)
[2020-07-31] MEDS ORDERED: POTASSIUM CHLORIDE ER 20 MEQ TAB PO ONE (14:53)
--- NOTE | 2020-07-31 15:23 | Discharge Summary ---
Providers - Providers Date of Admission: 07/30/20 08:00 Date of discharge: 08/01/20 Attending physician: GERSON DC 07/29/20 00:26 Consult to Physician [CONS] Urgent Comment: Consulting Provider: KALYAN ZAVALA Physician Instructions: Reason For Exam: Status post cholecystectomy, pain, pancreatitis Consult to Physician [CONS] Urgent Comment: Consulting Provider: ALLEN NIX Physician Instructions: Reason For Exam: Nonocclusive splenic vein thrombosis/pancreatitis 07/29/20 00:27 Consult to Physician [CONS] Urgent Comment: Consulting Provider: DYLAN DORANTES Physician Instructions: Reason For Exam: Hyperparathyroidism electrolyte abnormalies Primary care physician: HORSERADISH GRINDER Hospitalization Condition: Stable Hospital course: Subjective Date of service: 07/31/20 Principal diagnosis: Abdominal pain for 2 days Interval history: S/p laparoscopic cholecystectomy on 07/25/2020--comes in for severe abdominal pain- 50-year-old -[place] female with significant past medical history of hypertension, kidney stones, history of renal stent in 2018 discharged from this hospital about 24 hours ago for acute pancreatitis secondary to gallstones, status post laparoscopic cholecystectomy with intraoperative cholangiogram on 07/25/2020. She was also found to have left 5 mm ureteral stone on CT scan during the admission. She also had hypercalcemia which was treated with pamidronate and IV fluid. She is known to have an ectopic parathyroid mass in the mediastinum with subsequent referral to [place] [facility] surgery for follow- up. She presents today with nausea and vomiting, abdominal pain. She denies any fever or chills, no shortness of breath or chest pain, no headache or dizziness. She was discharged home on Sensipar, magnesium and phosphorus but indicates she has not been able to afford the Sensipar because of the cost. Work-up in the emergency room today reveals multiple electrolyte abnormalities including hypokalemia, hypomagnesemia and hypophosphatemia. CT scan of the abdomen and pelvis reveals pancreatitis. Patient was also found to have a nonocclusive splenic vein thrombosis. She is also found to have a UTI for which she has been commenced on empiric IV antibiotics. Vascular surgeon -Dr. Nix, general surgeon-Dr. Zavala, automatic typewriter inspector-Dr. Dorantes all have been consulted by the ER physician for evaluation and further recommendation. Patient also has nonocclusive splenic vein thrombosis which may be the cause of pain Patient symptomatically better Assessment and Plan Assessment and plan #1 Gallstone pancreatitis Still in severe pain Will continue clear liquids #2 splenic vein thrombosis Partially occluded Vascular surgery recommended IV heparin followed by Eliquis Patient still in severe pain Probable discharge tomorrow on Eliquis #3 hypophosphatemia K-Phos supplemented Recheck labs tomorrow #4 hypomagnesemia IV magnesium supplemented #5 DVT prophylaxis #6 abdominal wall hernia Causing recurrent epigastric pain Needs follow-up with surgery as outpatient for possible hernia repair and mesh insertion Patient not on heparin because of increased INR SCDs only Discharge discharge planning issues Patient changed to inpatient status because of the persistent abdominal pain splenic vein thrombosis on heparin drip and pancreatitis which is gallstone induced and electrolyte abnormalities. Disposition: DC-01 TO HOME OR SELFCARE Time spent for discharge: 32 minutes - Discharge Diagnoses (1) Acute pancreatitis Status: Acute Comment: Resolved (2) Hypercalcemia Status: Chronic Comment: Needs to follow-up with surgery for hypercalcemia-pos sible para thyroidectomy (3) Hyperparathyroidism Status: Acute Comment: Needs parathyroid removal as outpatient (4) Hypomagnesemia Status: Acute Comment: Supplemented (5) Hypophosphatemia Status: Acute Comment: Supplemented Core Measure Documentation - Palliative Care Palliative Care/ Comfort Measures: Not Applicable - Core Measures Any of the following diagnoses?: none Exam - Constitutional Vitals: Temp Pulse Resp BP Pulse Ox 99.3 F 102 H 20 142/103 98 07/31/20 11:05 07/31/20 11:05 07/31/20 11:05 07/31/20 11:05 07/31/20 11:05 General appearance: Present: no acute distress, well-nourished - EENT Eyes: Present: PERRL ENT: hearing intact, clear oral mucosa - Neck Neck: Present: supple, normal ROM - Respiratory Respiratory effort: normal Respiratory: bilateral: CTA - Cardiovascular Heart rate: 78 Rhythm: regular Heart Sounds: Present: S1 & S2. Absent: rub, click - Extremities Extremities: pulses symmetrical, No edema Peripheral Pulses: within normal limits - Abdominal General gastrointestinal: Present: soft, non-tender, non-distended, normal bowel sounds, hernia, other (Ventral hernia in the epigastric region--reducible) Female genitourinary: Present: normal - Integumentary Integumentary: Present: clear, warm, dry - Musculoskeletal Musculoskeletal: gait normal, strength equal bilaterally - Psychiatric Psychiatric: appropriate mood/affect, intact judgment & insight - Neurologic Neurologic: CNII-XII intact, moves all extremities Plan Activity: no restrictions Diet: low salt Follow up with: PRIMARY CARE, [Primary Care Provider] - 3-5 Days
--- NOTE | 2020-07-31 15:26 | Progress Note ---
Assessment and Plan - Patient Problems (1) Acute thrombosis of splenic vein Current Visit: Yes Status: Acute Plan to address problem: On IV heparin drip (2) Acute pancreatitis Current Visit: Yes Status: Acute Plan to address problem: Patient able to tolerate clears (3) Hypercalcemia Current Visit: Yes Status: Chronic Plan to address problem: Patient has ectopic parathyroid To follow-up with surgery as outpatient (4) Hyperparathyroidism Current Visit: Yes Status: Acute (5) Hypomagnesemia Current Visit: Yes Status: Acute Plan to address problem: Supplemented (6) Hypophosphatemia Current Visit: Yes Status: Acute Plan to address problem: Supplemented (7) DVT prophylaxis Current Visit: Yes Status: Acute Plan to address problem: On heparin drip and GI prophylaxis Subjective Date of service: 07/30/20 Principal diagnosis: Abdominal pain for 2 days Interval history: S/p laparoscopic cholecystectomy on 07/25/2020--comes in for severe abdominal pain- 50-year-old -[place] female with significant past medical history of hypertension, kidney stones, history of renal stent in 2018 discharged from this hospital about 24 hours ago for acute pancreatitis secondary to gallstones, status post laparoscopic cholecystectomy with intraoperative cholangiogram on 07/25/2020. She was also found to have left 5 mm ureteral stone on CT scan during the admission. She also had hypercalcemia which was treated with pamidronate and IV fluid. She is known to have an ectopic parathyroid mass in the mediastinum with subsequent referral to [place] [facility] for follow- up. She presents today with nausea and vomiting, abdominal pain. She denies any fever or chills, no shortness of breath or chest pain, no headache or dizziness. She was discharged home on Sensipar, magnesium and phosphorus but indicates she has not been able to afford the Sensipar because of the cost. Work-up in the emergency room today reveals multiple electrolyte abnormalities including hypokalemia, hypomagnesemia and hypophosphatemia. CT scan of the abdomen and pelvis reveals pancreatitis. Patient was also found to have a nonocclusive splenic vein thrombosis. She is also found to have a UTI for which she has been commenced on empiric IV antibiotics. Vascular surgeon -Dr. Chery, general surgeon-Dr. Oseguera, building energy consultant-Dr. Solis all have been consulted by the ER physician for evaluation and further recommendation. Patient also has nonocclusive splenic vein thrombosis which may be the cause of pain Patient still in pain Objective - Constitutional Vitals: Vital Signs - 12hr 07/31/20 07/31/20 06:11 11:05 Temperature 98.1 F 99.3 F Pulse Rate 117 H 102 H Respiratory 24 20 Rate Blood Pressure 134/108 142/103 O2 Sat by Pulse 100 98 Oximetry General appearance: Present: no acute distress, well-nourished - EENT Eyes: PERRL, EOM intact ENT: hearing intact, clear oral mucosa Ears: bilateral: normal - Neck Neck: supple, normal ROM - Respiratory Respiratory effort: normal Respiratory: bilateral: CTA - Breasts Breasts: normal - Cardiovascular Heart rate: 78 Rhythm: regular Heart Sounds: Present: S1 & S2. Absent: gallop, rub Extremities: pulses intact, No edema, normal color, Full ROM - Gastrointestinal General gastrointestinal: Present: soft, non-tender, non-distended, normal bowel sounds - Genitourinary Female genitourinary: normal - Integumentary Integumentary: clear, warm, dry - Musculoskeletal Musculoskeletal: 1, strength equal bilaterally - Neurologic Neurologic: moves all extremities - Psychiatric Psychiatric: memory intact, appropriate mood/affect, intact judgment & insight - Allied health notes Allied health notes reviewed: nursing, case management - Labs CBC & Chem 7: 07/31/20 04:23 07/31/20 04:23 Labs: Abnormal lab results 07/30/20 07/30/20 07/31/20 Range/Units 14:35 23:14 04:23 Hgb 10.0 L (10.1-14.3) gm/dl Heparin Anti-Xa Level < 0.10 L 0.26 L (0.3-0.7) U.I./ml Potassium (3.6-5.0) mmol/L Chloride (98-107) mmol/L Carbon Dioxide (22-30) mmol/L BUN (7-17) mg/dL Phosphorus (2.5-4.5) mg/dL 07/31/20 07/31/20 Range/Units 04:23 09:01 Hgb (10.1-14.3) gm/dl Heparin Anti-Xa Level 1.06 H (0.3-0.7) U.I./ml Potassium 3.2 L (3.6-5.0) mmol/L Chloride 108.0 H (98-107) mmol/L Carbon Dioxide 21 L (22-30) mmol/L BUN 4 L (7-17) mg/dL Phosphorus 1.50 L D (2.5-4.5) mg/dL Short CBC 07/31/20 Range/Units 04:23 Hgb 10.0 L (10.1-14.3) gm/dl Hct 31.4 (30.3-42.9) % Plt Count 241 (140-440) K/mm3 [facility] 07/31/20 04:23 Sodium 142 Potassium 3.2 L Chloride 108.0 H Carbon Dioxide 21 L BUN 4 L Creatinine 0.7 Glucose 91 Calcium 9.3
[2020-07-31] MEDS ORDERED: MAGNESIUM SULFATE 2 GM/50 ML BAG IV ONE (16:00)
[2020-07-31] MEDS: POTASSIUM CHLORIDE 10 MEQ 10 MEQ/100 ML BAG IV SCH ×4 (16:36→19:58)
[2020-07-31] MEDS: METOPROLOL TARTRATE 25 MG TAB PO SCH ×2 (17:08→22:39)
[2020-07-31] MEDS: HEPARIN/ 0.45% NACL DRIP 25,000 UNIT/500 ML BAG IV SCH (18:21)
[2020-08-01 06:56] LABS: Blood Urea Nitrogen 3 mg/dL (7-17); Calcium 8.8 mg/dL (8.4-10.2); Hemolysis Index 13
[2020-08-01 06:58] LABS: BUN/Creatinine Ratio 4
--- NOTE | 2020-08-01 10:02 | Progress Note ---
Assessment and Plan 1. 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 On Sensipar. Monitor Calcium level, improved now. 2. FEN: Replete K and Phos. Monitor lytes and volume status. 3. Acute pancreatitis: Resolving. S/p Lap cholecystectomy w/ intraoperative cholangiogram 07/25. Seen by Gen. Surgery. 4. Splenic vein thrombosis: Heparin drip. Seen by Vascular. 5. L nephrolithiasis with mild hydro: Continue Abx. Normal Renal function. Monitor. Outpatient f/u with Urologist. 6. Hypertension: BP controlled. 7. Medical non-compliance. F/u in 1-2 weeks. Subjective: Patient was seen and examined at the bedside. Eating ok. No vomiting. Examination: General appearance: well-developed, well-nourished, appears stated age, no distress HEENT: ATNC, hearing intact Neck: trachea midline, supple Respiratory: ctab Heart: regular, S1S2, no murmur Gastrointestinal: soft, normoactive bowel sounds, not tender Integumentary: no rash, warm and dry Neurologic: alert, oriented, moving extremities Ext: no edema Subjective Date of service: 08/01/20 Principal diagnosis: Abdominal pain for 2 days Objective - Vital Signs Vital signs: Vital Signs - 12hr 07/31/20 07/31/20 08/01/20 22:24 22:39 06:35 Temperature 99.0 F 98.0 F Pulse Rate 82 82 82 Respiratory 18 18 Rate Blood Pressure 139/95 139/95 145/73 O2 Sat by Pulse 100 100 Oximetry - Lab 07/31/20 04:23 08/01/20 04:37 Most recent lab results Calcium 8.8 mg/dL (8.4-10.2) 08/01/20 04:37 Phosphorus 2.20 mg/dL (2.5-4.5) L D 08/01/20 04:37 Magnesium 1.60 mg/dL (1.7-2.3) L 08/01/20 04:37 Medications & Allergies - Medications Allergies/Adverse Reactions: Allergies No Known Allergies Allergy (Verified 12/21/17 16:53) Home Medications: Home Medications Medication Instructions Recorded Confirmed Last Taken Type Magnesium Oxide [Mag-Ox] 400 mg PO QDAY #30 tablet 07/27/20 07/29/20 07/28/20 Rx Magnesium Oxide [Magnesium Oxide 240 mg PO QDAY #30 powd.pack 08/01/20 Unknown Rx 400] Metoprolol [Lopressor TAB] 25 mg PO BID #60 tablet 08/01/20 Unknown Rx Phosphorus #1 [K-Phos Neutral] 500 mg PO BID #20 tablet 08/01/20 Unknown Rx Tramadol HCl/Acetaminophen 1 each PO BID #40 tablet 08/01/20 Unknown Rx [Ultracet Tablet] Warfarin [Coumadin] 5 mg PO QDAY #30 tablet 08/01/20 Unknown Rx Active Medications: Generic Name Dose Route Start Last Admin Trade Name Freq PRN Reason Stop Dose Admin Acetaminophen 650 mg 07/29/20 01:25 07/30/20 01:38 Tylenol PO 650 mg Q4H PRN Administration Pain MILD(1-3)/Fever >100.5/WILSON Cinacalcet 60 mg 07/29/20 10:00 07/31/20 10:27 Sensipar PO 60 mg QDAY SONIA Administration Hydromorphone HCl 1 mg 07/29/20 17:30 07/31/20 20:10 Dilaudid IV 1 mg Q2H PRN Administration Pain , Severe (7-10) Heparin Sodium/Sodium Chloride 25,000 unit in 500 mls @ 18 mls/hr 07/29/20 01:00 07/31/20 23:27 Heparin/ 0.45% Nacl-25,000 Unit/500 Ml IV 1,650 units/hr TITR SONIA 33 mls/hr Titration Protocol 900 UNITS/HR Ceftriaxone Sodium 1 gm in 50 mls @ 100 mls/hr 07/29/20 10:00 07/31/20 10:27 Rocephin/Ns 1 Gm/50 Ml IV 08/02/20 10:29 100 mls/hr Q24HR SONIA Administration Protocol Metoclopramide HCl 10 mg 07/29/20 17:11 07/31/20 20:13 Reglan IV 10 mg Q6H PRN Administration Nausea And Vomiting Metoprolol Tartrate 25 mg 07/31/20 15:00 07/31/20 22:39 Metoprolol PO 25 mg BID SONIA Administration Ondansetron HCl 4 mg 07/29/20 01:25 07/30/20 20:19 Zofran IV 4 mg Q8H PRN Administration Nausea And Vomiting Sodium Chloride 10 ml 07/29/20 10:00 07/31/20 22:40 Sodium Chloride Flush Syringe 10 Ml IV 10 ml BID SONIA Administration Sodium Chloride 10 ml 07/29/20 01:25 Sodium Chloride Flush Syringe 10 Ml IV PRN PRN LINE FLUSH
[2020-08-01] MEDS: K-PHOS NEUTRAL 250 MG TAB PO SCH ×2 (10:37→14:26)
[2020-08-01] MEDS: CINACALCET 30 MG TAB PO SCH (10:37)
[2020-08-01] MEDS: METOPROLOL TARTRATE 25 MG TAB PO SCH (10:37)
[2020-08-01] MEDS: HYDROmorphone 1 MG/1 ML INJ IV PRN ×2 (10:38→17:39)
[2020-08-01] MEDS: cefTRIAXone/NS 1 GM/50 ML 1 GM/50 ML BAG IV SCH (10:38)
[2020-08-01 10:43] VITALS: BP 159/95
[2020-08-01] MEDS ORDERED: MAGNESIUM OXIDE 400 MG TAB PO NR (11:00)
[2020-08-01] MEDS ORDERED: MAGNESIUM SULFATE 2 GM/50 ML BAG IV ONE (12:00)
--- NOTE | 2020-08-01 13:34 | Discharge Summary ---
Providers - Providers Date of Admission: 07/30/20 08:00 Date of discharge: 08/01/20 Attending physician: GERSON DC 07/29/20 00:26 Consult to Physician [CONS] Urgent Comment: Consulting Provider: KALYAN ZAVALA Physician Instructions: Reason For Exam: Status post cholecystectomy, pain, pancreatitis Consult to Physician [CONS] Urgent Comment: Consulting Provider: ALLEN NIX Physician Instructions: Reason For Exam: Nonocclusive splenic vein thrombosis/pancreatitis 07/29/20 00:27 Consult to Physician [CONS] Urgent Comment: Consulting Provider: DYLAN DORANTES Physician Instructions: Reason For Exam: Hyperparathyroidism electrolyte abnormalies Primary care physician: CORE EXTRUDER Hospitalization Condition: Stable Hospital course: Hospitalization Condition: Stable Hospital course: Subjective Date of service: 08/01/20 Principal diagnosis: Abdominal pain for 2 days Interval history: S/p laparoscopic cholecystectomy on 07/25/2020--comes in for severe abdominal pain- 50-year-old -[place] female with significant past medical history of hypertension, kidney stones, history of renal stent in 2018 discharged from this hospital about 24 hours ago for acute pancreatitis secondary to gallstones, status post laparoscopic cholecystectomy with intraoperative cholangiogram on 07/25/2020. She was also found to have left 5 mm ureteral stone on CT scan during the admission. She also had hypercalcemia which was treated with pamidronate and IV fluid. 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 She presents today with nausea and vomiting, abdominal pain. She denies any fever or chills, no shortness of breath or chest pain, no headache or dizziness. She was discharged home on Sensipar, magnesium and phosphorus but indicates she has not been able to afford the Sensipar because of the cost. Work-up in the emergency room today reveals multiple electrolyte abnormalities including hypokalemia, hypomagnesemia and hypophosphatemia. CT scan of the abdomen and pelvis reveals pancreatitis. Patient was also found to have a nonocclusive splenic vein thrombosis. She is also found to have a UTI for which she has been commenced on empiric IV antibiotics. Vascular surgeon -Dr. Nix, general surgeon-Dr. Zavala, perishable freight inspector-Dr. Dorantes all have been consulted by the ER physician for evaluation and further recommendation. Patient also has nonocclusive splenic vein thrombosis which may be the cause of pain Patient symptomatically better Assessment and Plan Assessment and plan #1 Gallstone pancreatitis Still in severe pain Will continue clear liquids #2 splenic vein thrombosis Partially occluded Vascular surgery recommended IV heparin followed by [place] Patient still in severe pain Probable discharge tomorrow on Eliquis #3 hypophosphatemia K-Phos supplemented Recheck labs tomorrow #4 hypomagnesemia IV magnesium supplemented #5 DVT prophylaxis #6 abdominal wall hernia Causing recurrent epigastric pain Needs follow-up with surgery as outpatient for possible hernia repair and mesh insertion Patient not on heparin because of increased INR SCDs only Discharge discharge planning issues Patient changed to inpatient status because of the persistent abdominal pain splenic vein thrombosis on heparin drip and pancreatitis which is gallstone induced and electrolyte abnormalities. Disposition: DC-01 TO HOME OR SELFCARE Time spent for discharge: 32 minutes Disposition: DC-01 TO HOME OR SELFCARE - Discharge Diagnoses (1) Acute pancreatitis Status: Acute Comment: Resolved (2) Hypercalcemia Status: Chronic Comment: Needs to follow-up with surgery for hypercalcemia- possible para thyroidectomy (3) Hyperparathyroidism Status: Acute Comment: Needs parathyroid removal as outpatient (4) Hypomagnesemia Status: Acute Comment: Supplemented (5) Hypophosphatemia Status: Acute Comment: Supplemented Core Measure Documentation - Palliative Care Palliative Care/ Comfort Measures: Not Applicable - Core Measures Any of the following diagnoses?: none Exam - Constitutional Vitals: Temp Pulse Resp BP Pulse Ox 98.0 F 101 H 18 159/95 100 08/01/20 06:35 08/01/20 10:37 08/01/20 06:35 08/01/20 10:37 08/01/20 06:35 General appearance: Present: no acute distress, well-nourished - EENT Eyes: Present: PERRL ENT: hearing intact, clear oral mucosa - Neck Neck: Present: supple, normal ROM - Respiratory Respiratory effort: normal Respiratory: bilateral: CTA - Cardiovascular Heart rate: 78 Rhythm: regular Heart Sounds: Present: S1 & S2. Absent: rub, click - Extremities Extremities: pulses symmetrical, No edema Peripheral Pulses: within normal limits - Abdominal General gastrointestinal: Present: soft, non-tender, non-distended, normal bowel sounds, other (Ventral hernia--reducible) Female genitourinary: Present: normal - Rectal Rectal Exam: deferred - Integumentary Integumentary: Present: clear, warm, dry - Musculoskeletal Musculoskeletal: gait normal, strength equal bilaterally - Psychiatric Psychiatric: appropriate mood/affect, intact judgment & insight - Neurologic Neurologic: CNII-XII intact, moves all extremities - Allied Health Allied health notes reviewed: nursing, case management Plan Activity: no restrictions Diet: low salt Follow up with: PRIMARY CAREMD [Primary Care Provider] - 3-5 Days RACHEL BETHEA MD [Staff Physician] - 7 Days
[2020-08-01] MEDS: ONDANSETRON 4 MG/2 ML INJ IV PRN (17:39)
== END 2020-08-01 19:30 | disposition home or self-care (01) | DRG 299 ==
LOC: ED 20:37 → 3A 07-29 00:53 → OBSVTOIN 07-30 08:00
PROVIDERS: ADMIT Internal Medicine Geriatric Medicine; ATTEND Internal Medicine
DX: I82.890 Acute embolism and thrombosis of other specified veins (principal); K85.90 Acute pancreatitis without necrosis or infection, unspecified; N39.0 Urinary tract infection, site not specified; N13.2 Hydronephrosis with renal and ureteral calculous obstruction; E83.39 Other disorders of phosphorus metabolism; E83.42 Hypomagnesemia; E83.52 Hypercalcemia; I10 Essential (primary) hypertension; E86.0 Dehydration; Z90.49 Acquired absence of other specified parts of digestive tract; Z91.19 Patient's noncompliance with other medical treatment and regimen
CPT/HCPCS: 36415; 74177; 80048; 80053; 81001; 82150; 83690; 83735; 84100; 84703; 85014; 85018; 85025; 85049; 85520; 85610; 85730; 87086; 87116; 93005; 96365; 96375; G0378; J0696; J1170; J1200; J1644; J2405; J2765; J3475; J3480; J7030; J7040; Q9967

== ENCOUNTER 2020-09-25 11:11 | Emergency (ER) | payer MEDICAID ==
--- NOTE | 2020-09-25 11:21 | Event Note ---
ED Screening Note ED Screening Note: recent k stone see EMR scheduled for surgery today showed up and was not on schedule [facility] to come to ER shes co hematuria and pain she has not taken her antibiotics that urology - Dr Malik had given her no longer on coumadin This initial assessment/diagnostic orders/clinical plan/treatment(s) is/are subject to change based on patients health status, clinical progression and re- assessment by fellow clinical providers in the ED. Further treatment and workup at subsequent clinical providers discretion. Patient/guardian urged not to elope from the ED as their condition may be serious if not clinically assessed and managed. Initial orders include: labs/ua
[2020-09-25 12:17] LABS: HCG Qualitative,Urine Negative (Negative)
[2020-09-25 12:25] LABS: Bacteria,Urine 4+ /HPF (Negative); Mucus,Urine 2+ /HPF
[2020-09-25 12:27] LABS: Alanine Aminotransferase 13 units/L (7-56); Albumin 4.2 g/dL (3.9-5); BUN/Creatinine Ratio 10; Blood Urea Nitrogen 9 mg/dL (7-17); Hemolysis Index 22
[2020-09-25 12:30] LABS: Color,Urine Red (Yellow); RBC,Urine < 182.0 /HPF (0.0-6.0); WBC,Urine < 182.0 /HPF (0.0-6.0)
[2020-09-25 12:31] LABS: PH,Urine TNR (5.0-7.0); Protein,Urine TNR mg/dL (Negative); Urobilinogen,Urine TNR mg/dL (<2.0)
[2020-09-25 12:36] LABS: Calcium > 13.0 mg/dL (8.4-10.2)
[2020-09-25 12:41] LABS: Hematocrit 39.4 % (30.3-42.9); Hemoglobin 12.6 gm/dl (10.1-14.3); Mean Corpuscular HGB Conc 32 % (30-34); Mean Corpuscular Volume 94 fl (79-97); Red Blood Count 4.18 M/mm3 (3.65-5.03)
[2020-09-25 12:48] LABS: Platelet Count 254 K/mm3 (140-440); Red Cell Distribution Width 22.1 % (13.2-15.2)
[2020-09-25 12:52] LABS: INR 0.98 (0.87-1.13)
[2020-09-25] MEDS ORDERED: MORPHINE 2 MG/1 ML INJ IV ONE (12:55)
[2020-09-25] MEDS ORDERED: SODIUM CHLORIDE 0.9% 1000 ML 1,000 ML IV ONE (12:55)
[2020-09-25] MEDS ORDERED: ONDANSETRON 4 MG/2 ML INJ IV ONE (12:55)
--- NOTE | 2020-09-25 13:02 | Emergency Department Report ---
ED General Adult HPI - General Chief complaint: Urogenital-Female Stated complaint: STINT BLEEDING/KIDNEY STONES Time Seen by Provider: 09/25/20 11:20 Source: patient Mode of arrival: Ambulatory Limitations: No Limitations - History of Present Illness Initial comments: 50-year-old female, history of kidney stones, presents to ED for evaluation. Patient states she presented to the hospital for what she thought was an appointment for ureteral stent and kidney stone removal with Dr. Bernstein. Patient states when she arrived she was told that she was actually not on the schedule today she states she was told to come to the ER. Patient states urinar y stent was placed approximately 2 weeks ago. Patient reports she is having persistent left flank pain and hematuria. States this is been ongoing for the last 2 weeks with hematuria somewhat worse today. Location: abdomen Consistency: constant Improves with: none Worsens with: none Associated Symptoms: denies: fever/chills Treatments Prior to Arrival: none - Related Data Previous Rx's Medication Instructions Recorded Last Taken Type Magnesium Oxide [Mag-Ox] 400 mg PO QDAY #30 tablet 07/27/20 07/28/20 Rx Magnesium Oxide [Magnesium Oxide 240 mg PO QDAY #30 powd.pack 08/01/20 Unknown Rx 400] Metoprolol [Lopressor TAB] 25 mg PO BID #60 tablet 08/01/20 Unknown Rx Phosphorus #1 [K-Phos Neutral] 500 mg PO BID #20 tablet 08/01/20 Unknown Rx Tramadol HCl/Acetaminophen 1 each PO BID #40 tablet 08/01/20 Unknown Rx [Ultracet Tablet] Warfarin [Coumadin] 5 mg PO QDAY #30 tablet 08/01/20 Unknown Rx Cefuroxime Axetil [Ceftin] 500 mg PO Q12H 14 Days #28 ml 09/01/20 Unknown Rx Cinacalcet [Sensipar] 60 mg PO QDAY tablet 09/01/20 Unknown Rx cefUROXime [Ceftin] 500 mg PO Q12H 14 Days #28 tablet 09/01/20 Unknown Rx traZODone [Desyrel] 50 mg PO QHS PRN tablet 09/01/20 Unknown Rx Nitrofurantoin [place]/M-Cryst 100 mg PO Q12HR #14 capsule 09/25/20 Unknown Rx [Macrobid CAP] traMADoL [Ultram] 50 mg PO Q6HR PRN #7 tablet 09/25/20 Unknown Rx Allergies Allergy/AdvReac Type Severity Reaction Status Date / Time No Known Allergies Allergy Verified 12/21/17 16:53 ED Review of Systems ROS: Stated complaint: STINT BLEEDING/KIDNEY STONES Other details as noted in HPI Comment: All other systems reviewed and negative Constitutional: denies: fever Gastrointestinal: abdominal pain Genitourinary: hematuria ED Past Medical Hx - Past Medical History Previous Medical History?: Yes Hx Hypertension: Yes Hx Diabetes: No Hx Liver Disease: No Hx Sickle Cell Disease: No Hx Seizures: No Hx Kidney Stones: Yes Hx HIV: No Additional medical history: covid 02/2020. Hyperparathyroidism with hypercalcemia, hypophosphatemia, hypomagnesemia. Mediastinal ectopic parathyroid mass - Surgical History Past Surgical History?: Yes Hx Cholecystectomy: Yes Additional Surgical History: LASER surgery kidney stone. 1 renal stent placed 05/2018 - Social History Smoking Status: Never Smoker - Medications Home Medications: Home Medications Medication Instructions Recorded Confirmed Last Taken Type Magnesium Oxide [Mag-Ox] 400 mg PO QDAY #30 tablet 07/27/20 08/29/20 07/28/20 Rx Magnesium Oxide [Magnesium Oxide 240 mg PO QDAY #30 powd.pack 08/01/20 08/29/20 Unknown Rx 400] Metoprolol [Lopressor TAB] 25 mg PO BID #60 tablet 08/01/20 08/29/20 Unknown Rx Phosphorus #1 [K-Phos Neutral] 500 mg PO BID #20 tablet 08/01/20 08/29/20 Unknown Rx Tramadol HCl/Acetaminophen 1 each PO BID #40 tablet 08/01/20 08/29/20 Unknown Rx [Ultracet Tablet] Warfarin [Coumadin] 5 mg PO QDAY #30 tablet 08/01/20 08/29/20 Unknown Rx Cefuroxime Axetil [Ceftin] 500 mg PO Q12H 14 Days #28 ml 09/01/20 Unknown Rx Cinacalcet [Sensipar] 60 mg PO QDAY tablet 09/01/20 Unknown Rx cefUROXime [Ceftin] 500 mg PO Q12H 14 Days #28 tablet 09/01/20 Unknown Rx traZODone [Desyrel] 50 mg PO QHS PRN tablet 09/01/20 Unknown Rx Nitrofurantoin [place]/M-Cryst 100 mg PO Q12HR #14 capsule 09/25/20 Unknown Rx [Macrobid CAP] traMADoL [Ultram] 50 mg PO Q6HR PRN #7 tablet 09/25/20 Unknown Rx ED Physical Exam - General Limitations: No Limitations General appearance: alert, in no apparent distress - Head Head exam: Present: atraumatic, normocephalic - Eye Eye exam: Present: normal appearance, EOMI - ENT ENT exam: Present: mucous membranes moist - Neck Neck exam: Present: normal inspection - Respiratory Respiratory exam: Present: normal lung sounds bilaterally. Absent: respiratory distress - Cardiovascular Cardiovascular Exam: Present: normal rhythm, tachycardia - GI/Abdominal GI/Abdominal exam: Present: soft. Absent: distended, tenderness - Extremities Exam Extremities exam: Present: normal inspection - Back Exam Back exam: Present: CVA tenderness (L) - Neurological Exam Neurological exam: Present: alert, oriented X3 - Psychiatric Psychiatric exam: Present: normal affect, normal mood - Skin Skin exam: Present: warm, dry, intact, normal color ED Course Vital Signs 09/25/20 09/25/20 09/25/20 11:18 14:06 14:07 Temperature 97.9 F Pulse Rate 131 H Respiratory 18 18 18 Rate Blood Pressure 128/92 [Right] O2 Sat by Pulse 100 100 Oximetry 09/25/20 14:26 Temperature 98 F Pulse Rate 99 H Respiratory 18 Rate Blood Pressure 131/88 [Right] O2 Sat by Pulse 99 Oximetry - Consultations Consultation #1: 09/25/20 13:[address] Bernstein. Nothing to do here in the ED for patient. He is unclear why patient was told to come to the ER, but it was not by him. Patient is rescheduled for surgery on Friday 09/29. States to discharge with prescr iption for antibiotics. ED Medical Decision Making - Lab Data Result diagrams: 09/25/20 11:29 09/25/20 11:29 - Medical Decision Making 50-year-old female, history of kidney stones presents to ED for evaluation. Patient initially stated that her urologist instructed her to come to the ED after finding out that she was not on the OR schedule for today. Patient reports continued hematuria left flank pain of her kidney stone that was diagnosed at the end of last month. Patient currently has a ureteral stent in place. According to her urologist was spoke with over the phone, patient missed her scheduled procedure last week. She has been rescheduled for next week. He advises to place her on antibiotics and patient could be discharged home. Hemoglobin is stable. Patient has a history of hypercalcemia and is currently on Sensipar. She will be discharged at this time with Macrobid and tramadol. - Differential Diagnosis Kidney stone Critical care attestation.: If time is entered above; I have spent that time in minutes in the direct care of this critically ill patient, excluding procedure time. ED Disposition Clinical Impression: Hypercalcemia, Renal colic on left side, Hematuria Disposition: DC- TO HOME OR SELFCARE Is pt being admited?: No Condition: Stable Additional Instructions: Your procedure is scheduled for Tuesday, September 29. Do not eat or drink anything after midnight on the night before your procedure. Prescriptions: Nitrofurantoin [place]/M-Cryst [Macrobid CAP] 100 mg PO Q12HR #14 capsule traMADoL [Ultram] 50 mg PO Q6HR PRN #7 tablet PRN Reason: Pain Referrals: JUANIS MARTINEZ MD [Staff Physician] - as needed Time of Disposition: 14:00
[2020-09-25 14:26] VITALS: BP 131/88
== END 2020-09-25 14:19 | disposition home or self-care (01) ==
LOC: ED 11:11
DX: R73.9 Hyperglycemia, unspecified (principal); N23 Unspecified renal colic; I10 Essential (primary) hypertension; Z79.899 Other long term (current) drug therapy; Z90.49 Acquired absence of other specified parts of digestive tract; Z98.890 Other specified postprocedural states
CPT/HCPCS: 36415; 80053; 81001; 81025; 85027; 85610; 87086; 96361; 96374; 96375; 99283; J2270; J2405; J7030

== ENCOUNTER 2020-09-29 06:26 | Day surgery (SDC) | payer MEDICAID ==
[2020-09-29] MEDS ORDERED: LACTATED RINGERS 1,000 ML ONE (07:23)
[2020-09-29] MEDS ORDERED: LACTATED RINGERS 1,000 ML IV SCH (07:30)
[2020-09-29] MEDS ORDERED: MORPHINE 2 MG/1 ML INJ IV SCH (07:30)
[2020-09-29] MEDS ORDERED: HYDROmorphone 1 MG/1 ML INJ IV PRN ×2 (07:30)
[2020-09-29] MEDS ORDERED: WATER FOR IRRIG STERILE 2000 ML IR ONE (07:30)
[2020-09-29] MEDS ORDERED: WATER FOR IRRIG STERILE 1,500 ML BOTTLE IR ONE (07:30)
[2020-09-29] MEDS ORDERED: ONDANSETRON 4 MG/2 ML INJ IV PRN (07:30)
--- NOTE | 2020-09-29 07:31 | Anesthesia Day of Surgery ---
Anesthesia Day of Surgery - Day of Surgery Patient Examined: Yes Patient H&P Reviewed: Yes Patient is NPO: Yes
--- NOTE | 2020-09-29 07:34 | Anesthesia Consultation ---
Anesthesia Consult and Med Hx Date of service: 09/29/20 - Airway Anesthetic Teeth Evaluation: Poor (Missing) ROM Head & Neck: Adequate Mental/Hyoid Distance: Adequate Mallampati Class: Class II Intubation Access Assessment: Good - Pre-Operative Health Status ASA Pre-Surgery Classification: ASA3 Proposed Anesthetic Plan: General - Pulmonary Hx Smoking: No Hx Respiratory Symptoms: No SOB: No Hx Pneumonia: Yes (02/2020- DUE TO COVID- RESOLVED) Hx Sleep Apnea: Yes (RAY PRE SCREEN HIGH RISK) - Cardiovascular System Hx Hypertension: Yes (TOOK SELF OFF MEDS X 2 MONTHS) Hx Coronary Artery Disease: No Hx Cardia Arrhythmia: No Hx Heart Murmur: No - Central Nervous System Hx Neuromuscular Disorder: No Hx Seizures: No Hx Back Pain: Yes (FROM STONE) Hx Psychiatric Problems: No - Gastrointestinal Hx Gastroesophageal Reflux Disease: No (Hx pancreatitis from gallstone) - Endocrine Hx Renal Disease: Yes (Hx PRATIMA because of dehyrdration. Hx hydro) Hx Cirrhosis: No Hx Liver Disease: No Hx Insulin Dependent Diabetes: No Hx Non-Insulin Dependent Diabetes: No Hx Thyroid Disease: No (Hyperparathyroid because of tumor; hypercalcemia) Hx Hypothyroidism: No Hx Hyperthyroidism: No - Hematic Hx Anemia: Yes (NOT RECENT) Hx Sickle Cell Disease: No - Other Systems Hx Cancer: No Hx Obesity: Yes
[2020-09-29] MEDS ORDERED: MIDAZOLAM 2 MG/2 ML INJ IV NR (08:00)
[2020-09-29] MEDS ORDERED: fentaNYL 100 MCG/2 ML INJ ONE (08:16)
[2020-09-29] MEDS ORDERED: propofoL 200 MG/20 ML VIAL IV ONE (08:16)
[2020-09-29] MEDS ORDERED: dexAMETHasone 20 MG/5 ML VIAL ONE (08:16)
[2020-09-29] MEDS ORDERED: PHENYLEPHRINE/NS 1,000 MCG/10 ML SYRINGE (OR USE) IV ONE (08:16)
[2020-09-29] MEDS ORDERED: GLYCOPYRROLATE 0.4 MG/2 ML INJ ONE (08:16)
[2020-09-29] MEDS ORDERED: LIDOCAINE MPF (2%) 20 MG/1 ML VIAL 5 ML ONE (08:16)
[2020-09-29] MEDS ORDERED: ONDANSETRON 4 MG/2 ML INJ ONE (08:16)
[2020-09-29] MEDS ORDERED: SUCCINYLCHOLINE CHLORIDE 200 MG/10 ML INJ MDV ONE (08:16)
[2020-09-29] MEDS ORDERED: ceFAZolin/STERILE WATER 2 GM/20 ML SYRINGE IV NR (09:00)
--- NOTE | 2020-09-29 09:10 | Post Operative Note ---
Date of procedure: 09/29/20 Pre-op diagnosis: l ureteral stone Post-op diagnosis: same Findings: large stone Procedure: cysto ureteroscopy laser Anesthesia: GETA Surgeon: JUANIS MARTINEZ Estimated blood loss: none Pathology: list (stone) Specimen disposition: given to patient/family Condition: stable Disposition: PACU
--- NOTE | 2020-09-29 09:11 | Discharge Summary ---
Short Stay Discharge Plan Activity: other (no straining ) Weight Bearing Status: Full Weight Bearing Diet: low fat, low cholesterol, low salt Special Instructions: other (inc fluyids ) Durable Medical Equipment Needed Upon Discharge: other (j stent) Follow up with: PRIMARY CARE, [Primary Care Provider] - 7 Days JUANIS MARTINEZ MD [Staff Physician] - 7 Days
--- NOTE | 2020-09-29 09:37 | Fluoroscopy Report ---
INTRAOPERATIVE FLUOROSCOPY: RETROGRADE UROGRAPHY INDICATION / CLINICAL INFORMATION: CALCULUS LT URETER. TECHNIQUE: Intraoperative spot images were obtained during the procedure. FINDINGS: Images show left ureteral stent exchange and removal of stone material. 15 mL Omnipaque 300 used. See operative/procedure note by performing physician for full details. Fluoroscopy Time: 1 minute. Fluoroscopy Images: 5. Signer Name: Lucian Armando MD Signed: 09/29/2020 9:33 AM Workstation Name: [id number]
--- NOTE | 2020-09-29 10:32 | Operative Report ---
PREOPERATIVE DIAGNOSIS: Impacted left distal ureteral stone. POSTOPERATIVE DIAGNOSIS: Impacted left distal ureteral stone. PROCEDURE: Cystoscopy left retrograde, left ureteroscopy, laser of stones extraction multiple stones and double-J stent replacement and exchange. SURGEON: Dr. Malik. ANESTHESIA: General. FINDINGS: This is a woman who presented with cholecystitis. She also had a distal stone. She came back after a gallbladder surgery with sepsis. A stent was placed. She now presents for stage 2 of a staged procedure for ureteroscopy. DESCRIPTION OF PROCEDURE: The patient was brought to the operating room and placed in the operating table. Following induction of anesthesia, placed in lithotomy position, prepped and draped in the usual sterile fashion. Cystourethroscopy showed the stent, which was exchanged over a wire. Ureteroscopy revealed the distal fragment, which was extracted, then the larger stone, which could not be extracted whole. Using a 200 fiber, we broke the stone into multiple fragments and these were extracted. The patient tolerated the procedure well. A double-J coiled with the string in the bladder and kidney. She was brought to recovery in stable condition. JOB# [id number] REGINO/DONNA
--- NOTE | 2020-09-29 10:43 | Post Anesthesia Evaluation ---
- Post Anesthesia Evaluation Patient Participated: Yes Airway Patent: Yes Stable Respiratory Function: Yes Nausea/Vomiting: No Temp > 96.8F: Yes Pain Manageable: Yes Adequeate Hydration: Yes Anesthesia Complications: No Block Receding Appropriately: Not Applicable Patient on Ventilator: No
[2020-09-29 10:53] VITALS: BP 117/92
== END 2020-09-29 11:45 | disposition home or self-care (01) ==
LOC: OR 06:26
PROVIDERS: ATTEND Urology
DX: N20.1 Calculus of ureter (principal); E05.90 Thyrotoxicosis, unspecified without thyrotoxic crisis or storm; I10 Essential (primary) hypertension; E66.9 Obesity, unspecified; Z87.440 Personal history of urinary (tract) infections; Z86.718 Personal history of other venous thrombosis and embolism; Z87.01 Personal history of pneumonia (recurrent); Z90.49 Acquired absence of other specified parts of digestive tract; Z98.891 History of uterine scar from previous surgery; Z98.890 Other specified postprocedural states; Z68.38 Body mass index [BMI] 38.0-38.9, adult; Z86.2 Personal history of diseases of the blood and blood-forming organs and certain disorders involving the immune mechanism
CPT/HCPCS: 52356; 74420; 81025; A4217; C1758; C1769; C2617; J0330; J1100; J2250; J2270; J2370; J2405; J2704; J3010; J7120; Q9967